=== PATIENT | female | born 1955 | race Caucasian/White ===

== ENCOUNTER 2017-11-22 15:09 | Emergency (ER) | payer MEDICARE, MEDICAID, SELFPAY ==
[2017-11-22 15:19] VITALS: BP 150/83; PULSE 91; RESP 24; TEMP 36.8; O2SAT 86; BMI 22.8
[2017-11-22 15:30] VITALS: PULSE 82
--- NOTE | 2017-11-22 15:44 | XR_ITS ---
XR chest 2V Ordering Physician: Juli Myers MD Patient Age: 62 years: Female HISTORY: ITS.REASON: cough , Congestion TECHNIQUE: PA and lateral chest COMPARISON :2 view chest from November 2016.. AP chest November [address] chest June 2017 . FINDINGS Again see the linear scarring at the right midlung. Similar to previous study Just peripheral to this area we focal pleural thickening. Associated with Old rib fractures. On previous CT and plain films are noted healing rib fractures at the fifth and sixth and seventh ribs. However on today's study there seems to be some additional offset and mild distraction most evident at the sixth rib fracture. This may warrant a follow-up CT particular if the patient has a history of cancer chronic changes RML and lower lobe. Cannot exclude acute infiltrate. Available history unclear in this currently. I favor the changes at the right chest reflect scarring and chronic changes but difficult to exclude a minimal associated infiltrate. Here at the right midlung extending anterior from the right torres The generous left torres is again noted and appears fairly stable. A generous left> right pulmonary artery is been previously noted on prior CT 2017. No pneumothorax no pleural effusion. Heart upper normal in size borderline cardiomegaly. Calcified aortic knob. Superior mediastinum appears satisfactory and stable. IMPRESSION: 1. Most likely chronic changes account for the appearance right midlung. Previous CXR and CT studies are shown significant linear scarring lateral to the right torres & about right perihilar region. However it is difficult to exclude a subtle infiltrate extending anterior to the right torres on today's lateral view.. 2. The patient had healing rib fractures at right fifth and sixth rib which previously appeared rather congruent on plain film. However today there appears to be more evident offset, distraction and disruption with additional slight additional pleural-based density beneath this area.. Requires correlation. Is there pain here?.... 3.. Consider follow-up CT chest, particularly if recurrent chest symptoms in this region; and if prior history of lung cancer (as suggested on one of the previous CT studies.)
[2017-11-22 15:55] LABS: Basophils # 0.1 K/mm3 (0-0.2); Basophils % 0.9 % (0.1-2.0); Eosinophils # 0.3 K/mm3 (0.0-0.4); Eosinophils % 4.9 % (0.1-12.0); Hematocrit 42.4 % (37.0-47.0); Hemoglobin 14.1 g/dL (12.2-16.2); Lymphocytes # 2.3 K/mm3 (0.7-4.5); Lymphocytes % 34.9 K/mm3 (10-50); Mean Corpuscular HGB Conc 33.2 g/dL (31.8-35.4); Mean Corpuscular Hemoglobin 32.5 pg (27.0-31.2); Mean Corpuscular Volume 98.1 fl (81-99); Mean Platelet Volume 8.4 fl (7.4-10.4); Monocytes # 0.7 K/mm3 (0.1-1.0); Monocytes % 10.1 % (1.7-9.3); Neutrophils # 3.3 K/mm3 (1.8-7.8); Neutrophils % 49.3 % (37.0-80.0); Platelet Count 181 K/mm3 (142-424); Red Blood Count 4.32 M/mm3 (4.20-5.40); Red Cell Distribution Width 12.7 % (11.5-17.5); White Blood Count 6.6 K/mm3 (4.8-10.8)
--- NOTE | 2017-11-22 15:57 | [facility].EDSOB ---
ED Disposition Clinical Impression: COPD (chronic obstructive pulmonary disease), Tobacco use disorder, Atelectasis of right lung, Left against medical advice Disposition: Home, Self-Care Condition on Discharge: Fair Prescriptions: Benzonatate [Tessalon Perle 100mg Cap] 100 mg PO Q4HP PRN #30 cap PRN Reason: Cough levoFLOXacin [Levaquin 250mg tab] 250 mg PO DAILY #10 tab methylPREDNISolone [Medrol] 4 mg PO DIRECTED #1 tab.ds.pk Referrals: Bridger Aguilar MD [Primary Care Provider] - - Critical Care Critical Care Time: No Attestation: On 11/22/17, the high probability of a clinically significant, sudden or life threatening deterioration of the following system(s) required my full and direct attention, intervention and personal management. The time I documented below is in addition to time spent performing reported procedures but includes the following listed in this critical care notation. Medical Decision Making Vital Signs: 11/22/17 15:19 11/22/17 15:30 11/22/17 16:19 Temperature 98.2 F Temperature Source Oral Pulse Rate 82 65 Pulse Rate [Left Brachial] 91 H Respiratory Rate 24 Blood Pressure [Left Arm] 150/83 Blood Pressure Mean [Left Arm] 105 Blood Pressure Source [Left Arm] Automatic Cuff Blood Pressure Position [Left Arm] Sitting 02 Sat by Pulse Oximetry 86 L Oxygen Delivery Method Room Air - Lab Data Lab Results 11/22/17 15:30: WBC 6.6, RBC 4.32, Hgb 14.1, Hct 42.4, MCV 98.1, MCH 32.5 H, MCHC 33.2, RDW 12.7, Plt Count 181, MPV 8.4, Neut % (Auto) 49.3, Lymph % (Auto) 34.9, Rich % (Auto) 10.1 H, Eos % (Auto) 4.9, Baso % (Auto) 0.9, Neut # (Auto) 3.3, Lymph # (Auto) 2.3, Rich # (Auto) 0.7, Eos # (Auto) 0.3, Baso # (Auto) 0.1 11/22/17 15:30: Sodium 137, Potassium 3.6, Chloride 100, Carbon Dioxide 32, Anion Gap 8.6, BUN 9, Creatinine 0.56, Estimated Creat Clear 96, Estimated GFR 110, Est GFR ( Amer) 134, Glucose 99, Calcium 8.4 L, Total Bilirubin 0.2, AST 19, ALT 29, Alkaline Phosphatase 131 H, Total Protein 7.0, Albumin 3.3 L, Globulin 3.7 H, Albumin/Globulin Ratio 0.9 L 11/22/17 15:30: Lactic Acid 0.8 Result diagrams: 11/22/17 15:30 11/22/17 15:30 Orders (Tests/Meds): ED MEDICATIONS Generic Name Dose Route Start Last Admin Trade Name Freq PRN Reason Stop Dose Admin Albuterol/Ipratropium 3 ml 11/22/17 16:00 11/22/17 16:16 Duoneb 3ml Neb 12/22/17 15:59 3 ml Q1H MILI Administration Levofloxacin/Dextrose 500 mg in 100 mls @ 100 mls/hr 11/22/17 16:00 11/22/17 16:06 Levaquin 500mg/100ml Premix IV 12/06/17 15:59 100 mls/hr Q24H MILI Administration Protocol Discontinued Medications Generic Name Dose Route Start Last Admin Trade Name Freq PRN Reason Stop Dose Admin Albuterol/Ipratropium 3 ml 11/22/17 15:27 11/22/17 16:16 Duoneb 3ml Neb 11/22/17 15:28 3 ml ONCE ONE Administration Methylprednisolone Sodium Succinate 125 mg 11/22/17 15:50 11/22/17 16:06 Solu-Medrol 125mg/2ml Vial IV 11/22/17 15:51 125 mg ONCE ONE Administration ORDERS Category Date Time Status Chest XR 2 view (NOT portable) [XR chest 2V] Stat Exams 11/22/17 15:44 Taken Blood Culture Stat Micro 11/22/17 15:30 Ordered - Radiology Data #1 Image(s): Chest Image Reviewed: Yes I reviewed the patient's radiology image, Yes I have reviewed radiologist's interpretation Preliminary Findings: Abnormal Chronic changes in the right middle and right lower lobe, acute infiltrates cannot be excluded. - Neftali Inquiry Pt receiving controlled substance: No Neftali was queried for this patient: No Medical Decision Making Narrative: The patient felt improvement after steroids and DuoNeb, her chest x-ray was essentially unchanged from December 2016, labs were within normal limits. Upon reexamination she was still wheezing and I advised her for admission but she declined. She is aware of the risk of worsening of breathing respi
[2017-11-22 15:58] LABS: Alanine Aminotransferase 29 U/L (12-78); Albumin Level 3.3 gm/dL (3.4-5.0); Albumin/Globulin Ratio 0.9 (1.1-1.8); Alkaline Phosphatase 131 U/L (46-116); Anion Gap 8.6 mEq/L (5-15); Aspartate Amino Transferase 19 U/L (15-37); Bilirubin,Total 0.2 mg/dL (0.2-1.0); Blood Urea Nitrogen 9 mg/dL (7-18); Calcium 8.4 mg/dL (8.5-10.1); Carbon Dioxide 32 mmol/L (21.0-32.0); Chloride 100 mmol/L (98-107); Creatinine Clearance Estimated 96 mL/min (0-300); Creatinine,Serum 0.56 mg/dL (0.55-1.02); Estimated Glomerular Filt Rate 110 ml/min (>60); GFR (African American) 134 ML/MIN (>60); Globulin 3.7 gm/dl (1.3-3.2); Glucose 99 mg/dL (74-106); Potassium 3.6 mmoL/L (3.5-5.1); Sodium 137 mmol/L (136-145)
--- NOTE | 2017-11-22 16:00 | ED_ITS ---
ED Disposition Clinical Impression: COPD (chronic obstructive pulmonary disease), Tobacco use disorder, Atelectasis of right lung, Left against medical advice Disposition: Home, Self-Care Condition on Discharge: Fair Prescriptions: Benzonatate [Tessalon Perle 100mg Cap] 100 mg PO Q4HP PRN #30 cap PRN Reason: Cough levoFLOXacin [Levaquin 250mg tab] 250 mg PO DAILY #10 tab methylPREDNISolone [Medrol] 4 mg PO DIRECTED #1 tab.ds.pk Referrals: Bridger Aguilar MD [Primary Care Provider] - - Critical Care Critical Care Time: No Attestation: On 11/22/17, the high probability of a clinically significant, sudden or life threatening deterioration of the following system(s) required my full and direct attention, intervention and personal management. The time I documented below is in addition to time spent performing reported procedures but includes the following listed in this critical care notation. Medical Decision Making Vital Signs: 11/22/17 15:19 11/22/17 15:30 11/22/17 16:19 Temperature 98.2 F Temperature Source Oral Pulse Rate 82 65 Pulse Rate [Left Brachial] 91 H Respiratory Rate 24 Blood Pressure [Left Arm] 150/83 Blood Pressure Mean [Left Arm] 105 Blood Pressure Source [Left Arm] Automatic Cuff Blood Pressure Position [Left Arm] Sitting 02 Sat by Pulse Oximetry 86 L Oxygen Delivery Method Room Air - Lab Data Lab Results 11/22/17 15:30: WBC 6.6, RBC 4.32, Hgb 14.1, Hct 42.4, MCV 98.1, MCH 32.5 H, MCHC 33.2, RDW 12.7, Plt Count 181, MPV 8.4, Neut % (Auto) 49.3, Lymph % (Auto) 34.9, [place] % (Auto) 10.1 H, Eos % (Auto) 4.9, Baso % (Auto) 0.9, Neut # (Auto) 3.3, Lymph # (Auto) 2.3, [place] # (Auto) 0.7, Eos # (Auto) 0.3, Baso # (Auto) 0.1 11/22/17 15:30: Sodium 137, Potassium 3.6, Chloride 100, Carbon Dioxide 32, Anion Gap 8.6, BUN 9, Creatinine 0.56, Estimated Creat Clear 96, Estimated GFR 110, Est GFR ( Amer) 134, Glucose 99, Calcium 8.4 L, Total Bilirubin 0.2 , AST 19, ALT 29, Alkaline Phosphatase 131 H, Total Protein 7.0, Albumin 3.3 L, Globulin 3.7 H, Albumin/Globulin Ratio 0.9 L 11/22/17 15:30: Lactic Acid 0.8 Result diagrams: 11/22/17 15:30 11/22/17 15:30 Orders (Tests/Meds): ED MEDICATIONS Generic Name Dose Route Start Last Admin Trade Name Freq PRN Reason Stop Dose Admin Albuterol/Ipratropium 3 ml 11/22/17 16:00 11/22/17 16:16 Duoneb 3ml Neb IH 12/22/17 15:59 3 ml Q1H MILI Administration Levofloxacin/Dextrose 500 mg in 100 mls @ 100 mls/hr 11/22/17 16:00 11/22/17 16:06 Levaquin 500mg/100ml Premix IV 12/06/17 15:59 100 mls/hr Q24H MILI Administration Protocol Discontinued Medications Generic Name Dose Route Start Last Admin Trade Name Freq PRN Reason Stop Dose Admin Albuterol/Ipratropium 3 ml 11/22/17 15:27 11/22/17 16:16 Duoneb 3ml Neb IH 11/22/17 15:28 3 ml ONCE ONE Administration Methylprednisolone Sodium Succinate 125 mg 11/22/17 15:50 11/22/17 16:06 Solu-Medrol 125mg/2ml Vial IV 11/22/17 15:51 125 mg ONCE ONE Administration ORDERS Category Date Time Status Chest XR 2 view (NOT portable) [XR chest 2V] Stat Exams 11/22/17 15:44 Taken Blood Culture Stat Micro 11/22/17 15:30 Ordered - Radiology Data #1 Image(s):
[2017-11-22 16:12] LABS: Lactic Acid 0.8 mmol/L (0.4-2.0)
[2017-11-22 16:19] VITALS: PULSE 64; PULSE 65
[2017-11-22 17:15] VITALS: BP 150/83; PULSE 91; RESP 20; TEMP 36.8
== END 2017-11-22 17:18 | disposition home or self-care (01) ==
PROVIDERS: Emergency Provider Emergency Medicine; PCP Emergency Medicine
DX: J44.9 Chronic obstructive pulmonary disease, unspecified (principal); J98.11 Atelectasis; F17.210 Nicotine dependence, cigarettes, uncomplicated; Z88.1 Allergy status to other antibiotic agents
CPT/HCPCS: 71046; 80053; 83605; 85025; 87040; 96365; 96374; 99282; J1956

== ENCOUNTER 2018-05-08 22:19 | Observation (INO) ==
[2018-05-08 22:39] LABS: Microscopic, Urine URINE MICROSCOPIC (MICROSCOPIC)
[2018-05-08 22:41] LABS: Appearance,Urine CLEAR (Clear); Bilirubin,Urine Negative (Negative); Blood, Urine TRACE-L (Negative); Color,Urine YELLOW (Yellow); Glucose,Urine (UA) Negative (Negative); Ketones,Urine Negative (Negative); Leukocyte Esterase,Urine Negative (Negative); PH,Urine 6.5 (5.0-8.5); Protein,Urine TRACE (Negative); Urobilinogen,Urine 0.2 EU/dl (0.2)
[2018-05-08 22:42] LABS: ABG Base Excess 1.8 mmol/L (-2.4-2.3); ABG HCO3 28.4 mmhg (22.0-26.0); ABG Oxygen Saturation 92 % (90-100); ABG PH 7.29 mmol/L (7.35-7.45); ABG PO2 66.2 mmhg (80-100); ABG TCO2 30.3 mmhg (23-27)
[2018-05-08 22:43] LABS: ABG PCO2 60.9 mmhg (35.0-45.0)
[2018-05-08 22:49] LABS: Amphetamine/Metha Screen,Urine Negative ng/mL (<1000); Barbiturates Screen,Urine Negative ng/mL (<200); Benzodiazepines Screen,Urine Negative ng/mL (<200); Cannabinoid Screen,Urine Negative ng/mL (<50); Cocaine Screen,Urine Negative ng/mL (<300); Methadone Screen,Urine Negative ng/mL (<300); Opiate Screen,Urine Negative ng/mL (<300); Phencyclidine Screen,Urine Negative ng/mL (<25)
[2018-05-08 23:08] LABS: Basophils # 0.1 K/mm3 (0-0.2); Basophils % 0.9 % (0.1-2.0); Eosinophils # 0.5 K/mm3 (0.0-0.4); Eosinophils % 6.6 % (0.1-12.0); Hematocrit 42.2 % (37.0-47.0); Lymphocytes # 2.4 K/mm3 (0.7-4.5); Lymphocytes % 30.8 K/mm3 (10-50); Mean Corpuscular HGB Conc 35.4 g/dL (31.8-35.4); Mean Corpuscular Hemoglobin 34.8 pg (27.0-31.2); Mean Corpuscular Volume 98.3 fl (81-99); Mean Platelet Volume 7.4 fl (7.4-10.4); Monocytes # 0.6 K/mm3 (0.1-1.0); Monocytes % 7.9 % (1.7-9.3); Neutrophils # 4.2 K/mm3 (1.8-7.8); Neutrophils % 53.9 % (37.0-80.0); Platelet Count 218 K/mm3 (142-424); Red Blood Count 4.29 M/mm3 (4.20-5.40); Red Cell Distribution Width 13.2 % (11.5-17.5); White Blood Count 7.8 K/mm3 (4.8-10.8)
[2018-05-08 23:25] LABS: Albumin Level 3.3 gm/dL (3.4-5.0); Albumin/Globulin Ratio 0.9 (1.1-1.8); Bilirubin,Total 0.3 mg/dL (0.2-1.0); Calcium 8.7 mg/dL (8.5-10.1); Globulin 3.6 gm/dl (1.3-3.2); Total Protein,Serum 6.9 gm/dL (6.4-8.2)
[2018-05-08 23:42] LABS: Bacteria,Urine Trace /lpf
--- NOTE | 2018-05-08 23:53 | Emergency Department Note ---
ED Disposition Clinical Impression: Altered mental status Qualifiers: Altered mental status type: unspecified Qualified Code(s): R41.82 - Altered mental status, unspecified Disposition: Admitted as Observation Condition on Discharge: Good Instructions: DI for Seizure Disorder -- Adult, DI for Seizure (Not Epilepsy/ Seizure Disorder), DI for Seizure Disorder -- Child Referrals: Bridger Aguilar MD [Primary Care Provider] - - Critical Care Critical Care Time: No Attestation: On 05/08/18, the high probability of a clinically significant, sudden or life threatening deterioration of the following system(s) required my full and direct attention, intervention and personal management. The time I documented below is in addition to time spent performing reported procedures but includes the following listed in this critical care notation. Medical Decision Making - Medical Records Medical records reviewed: Yes: I reviewed the patient's medical records. - Neftali Inquiry Pt receiving controlled substance: No Vital Signs: 05/08/18 22:21 05/08/18 23:57 Temperature 99.8 F H 98.6 F Temperature Source Rectal Oral Pulse Rate [Right Radial] 108 H 103 H Respiratory Rate 14 16 Blood Pressure [Right Arm] 161/85 164/88 Blood Pressure Mean [Right Arm] 110 113 Blood Pressure Source [Right Arm] Automatic Cuff Manual Cuff/ Auscultation Blood Pressure Position [Right Arm] Sitting Sitting 02 Sat by Pulse Oximetry 88 L 94 L Oxygen Delivery Method Room Air Nasal Cannula Oxygen Flow Rate (LPM) 2 - Lab Data Lab results reviewed: Yes: I reviewed the patient's lab results. Lab Results 05/08/18 20:45: WBC 7.8, RBC 4.29, Hgb 15.0, Hct 42.2, MCV 98.3, MCH 34.8 H, MCHC 35.4, RDW 13.2, Plt Count 218, MPV 7.4, Neut % (Auto) 53.9, Lymph % (Auto) 30.8, [place] % (Auto) 7.9, Eos % (Auto) 6.6, Baso % (Auto) 0.9, Neut # (Auto) 4.2 , Lymph # (Auto) 2.4, [place] # (Auto) 0.6, Eos # (Auto) 0.5 H, Baso # (Auto) 0.1 05/08/18 20:45: Sodium 138, Potassium 4.0, Chloride 100, Carbon Dioxide 31, Anion Gap 11.0, BUN 7, Creatinine 0.87, Estimated Creat Clear 64, Estimated GFR 66, Est GFR ( Amer) 80, Glucose 82, Calcium 8.7, Total Bilirubin 0.3, AST 17, ALT 21, Alkaline Phosphatase 140 H, Total Protein 6.9, Albumin 3.3 L, Globulin 3.6 H, Albumin/Globulin Ratio 0.9 L 05/08/18 20:45: Lactate 2.9 H 05/08/18 20:45: Troponin I < 0.02 05/08/18 22:35: Urine Color Yellow, Urine Appearance Clear, Urine pH 6.5, Ur Specific [place] 1.020, Urine Protein Trace, Urine Glucose (UA) Negative, Urine Ketones Negative, Urine Blood Trace-l, Urine Nitrate Negative, Urine Bilirubin Negative, Urine Urobilinogen 0.2, Ur Leukocyte Esterase Negative, Urine RBC None , Urine WBC 3-5, Ur Squamous Epith Cells None, Urine Bacteria Trace 05/08/18 22:35: Urine Opiates Screen Negative, Urine Methadone Screen Negative, Ur Barbituates Screen Negative, Ur Phencyclidine Scrn Negative, Ur Amphetamines Screen Negative, U Benzodiazepines Scrn Negative, Urine Cocaine Screen Negative , U Marijuana (THC) Screen Negative 05/08/18 22:41: ABG pH 7.29 L, ABG pCO2 60.9 H, ABG pO2 66.2 L, ABG HCO3 28.4 H , ABG Total CO2 30.3 H, ABG O2 Saturation 92, ABG Base Excess 1.8 Result diagrams: 05/08/18 20:45 05/08/18 20:45 Orders (Tests/Meds): ED MEDICATIONS Generic Name Dose Route Start Last Admin Trade Name Freq PRN Reason Stop Dose Admin Sodium Chloride 2 ml 05/09/18 00:04 Saline Flush 10ml Syringe IV 06/08/18 00:03 NEEDED PRN to Dilute Lorazepam inj Discontinued Medications Generic Name Dose Route Start Last Admin Trade Name Freq PRN Reason Stop Dose Admin Sodium Chloride 1,000 mls @ 999 mls/hr 05/08/18 23:00 05/08/18 23:31 Sod Chlor 0.9% 1000ml Bag IV 05/09/18 00:00 999 mls/hr .Q1H1M MILI Administration Lorazepam 0.5 mg 05/09/18 00:04 05/09/18 00:09 Ativan 2mg/Ml Vial IV 05/09/18 00:05 0.5 mg ONCE ONE Administration ORDERS Category Date Time Status CT head/brain wo con Stat Cat Scan 05/08/18 22:30 Taken XR chest AP Stat Exams 05/08/18 23:03 Taken Ethanol [Ethyl Alcohol] Stat Lab 05/08/18 23:54 Received Blood Culture Stat Micro 05/08/18 20:45 Received Arterial Blood Gas Stat RT 05/08/18 22:30 Ordered EKG Request [ECG Request by /Kira] Stat Y 05/08/18 23:25 Ordered - Radiology Data #1 Image(s): Chest Image Reviewed: Yes I reviewed the patient's radiology image Preliminary Findings: Abnormal (chronic rt sided changes ) - CT Data CT Scan: Head Time Received: 00:[address] Reviewed: Yes: I have viewed the radiologist's interpretation Preliminary Findings: Normal/NAD - ECG Data Tracing #1 I reviewed this ECG and interpreted as documented below: Arrhythmias present: sinus tach Ischemic changes: non-specific ST-T wave changes Seizures HPI - General Chief Complaint: Seizure Stated Complaint: seizure Time Seen by Provider: 05/08/18 22:30 Mode of Arrival: EMS Source of Information: Patient, Relative, EMS, Medical Record Limitations: Physical Limitations Description of Symptoms (Recalled from ER Triage Doc. by RN): EMS was called by who reports a seizure. Upon arrival they state the patient was in bed with noted incontinence of urine, tachycardia, pupils dialated and lethargic. - History of Present Illness HPI Narrative: family reports episode of stiffing up an incont but not apnea and no known hx of sz - pt denied and subst abuse but did start suboxone today MD complaint: possible seizure Onset (ago): hour(s) Description of Episode: tonic-clonic movement, bladder incontinence, post-event confusion -: minutes(s) Witnessed: yes - by bystander Trauma: No Seizure History: none Place: home Possible Precipitating Event: drug use Associated symptoms: denies other symptoms Treatments prior to arrival: none - Related Data Home Medications Medication Instructions Recorded Confirmed Atorvastatin Calcium [Atorvastatin 40 mg PO HS 05/08/18 05/08/18 40mg Tab] Benzonatate [Benzonatate 100mg 100 mg PO NEEDED PRN 05/08/18 05/08/18 cap] Buprenorphine HCl/Naloxone HCl 1 each SL DAILY 05/08/18 05/08/18 [Buprenorphin-Naloxon 8-2 mg Sl] Omeprazole [Omeprazole 20mg 40 mg PO DAILY 05/08/18 05/08/18 Capsule] Potassium Chloride [Klor-con 20 20 meq PO DAILY 05/08/18 05/08/18 mEq tablet] Allergies Allergy/AdvReac Type Severity Reaction Status Date / Time No Known Allergies Allergy Verified 05/08/18 22:30 [facility] History I have reviewed the patient's past medical history: Yes Medical History: Reports:: Cancer, Chronic Obstructive Pulmonary Disease (COPD) , Cerebrovascular Accident, Gastroesophageal Reflux Disease(GERD), Hyperlipidemia, Seizures Denies:: Diabetes Mellitus Type 1, Diabetes Mellitus Type 2 Other Medical History: Reports: Anemia Laterality Cases: Bilateral: Other Other Surgeries: Yes: Hysterectomy-Total Amputation: No Fractures: No Comment: carotid sx - Social History Smoking Status: Current every day smoker Tobacco Type: cigarettes # Packs/Day (cigarettes): 1 Alcohol Intake: never Alcohol Intake Frequency:: other Substance Use Type: former substance user Occupational Status: unemployed - Psychiatric History Expresses thoughts of harming self/others: None Suicide Plan Description: No Plan Family Hx:: Cancer ROS Obtained: Yes All systems reviewed & no additional complaints - Constitutional Constitutional: Denies fever(s) - Eyes Eyes: Denies eye discharge - ENT Ears, Nose, Mouth, and Throat: Denies sore throat - Cardiovascular Cardiovascular: Denies chest pain - Respiratory Respiratory: No cough - Gastrointestinal Gastrointestingal: Denies: abdominal pain - Genitourinary Female Genitourinary: Denies hematuria - Musculoskeletal Musculoskeletal: Denies joint pain, Denies joint swelling - Integumentary/Breasts Skin/Breast: Denies rash - Neurologic Neurologic: Denies headache(s), Reports seizure-like activity Physical Exam - General General appearance: in no apparent distress - Head Head exam: normocephalic - Eye Eye exam: Present: PERRL, EOMI. Absent: scleral icterus, nystagmus - ENT ENT exam: Present: normal oropharynx, mucous membranes dry, other (no evid of tongue biting ) - Neck Neck exam: Present: trachea midline - Chest Chest inspection: Present: normal inspection - Respiratory Respiratory exam: Present: normal lung sounds bilaterally. Absent: respiratory distress - Cardiovascular Cardiovascular exam: Present: regular rate, systolic murmur, +S4 - Abdominal Exam Abdominal exam: Present: soft - Extremities Exam Extremities exam: Absent: calf tenderness - Neurological Exam Neurological exam: Present: alert, oriented X3, CN II-XII intact, other (does have occ jerking of upper ext ) - Skin Skin exam: Absent: rash
[2018-05-09 07:41] LABS: Basophils # 0.1 K/mm3 (0-0.2); Eosinophils # 0.2 K/mm3 (0.0-0.4); Eosinophils % 3.6 % (0.1-12.0); Hematocrit 42.8 % (37.0-47.0); Lymphocytes # 2.1 K/mm3 (0.7-4.5); Lymphocytes % 32.9 K/mm3 (10-50); Mean Corpuscular HGB Conc 32.6 g/dL (31.8-35.4); Mean Corpuscular Hemoglobin 32.3 pg (27.0-31.2); Mean Platelet Volume 7.6 fl (7.4-10.4); Monocytes # 0.6 K/mm3 (0.1-1.0); Monocytes % 8.6 % (1.7-9.3); Neutrophils # 3.5 K/mm3 (1.8-7.8); Neutrophils % 53.9 % (37.0-80.0); Platelet Count 219 K/mm3 (142-424); Red Blood Count 4.32 M/mm3 (4.20-5.40); Red Cell Distribution Width 13.2 % (11.5-17.5); White Blood Count 6.4 K/mm3 (4.8-10.8)
[2018-05-09 07:42] LABS: Anion Gap 7.9 mEq/L (5-15); Potassium 3.9 mmoL/L (3.5-5.1)
[2018-05-09 07:43] VITALS: BP 127/58
--- NOTE | 2018-05-09 08:20 | Pharmacy Consult Notes ---
[facility] Pharmacy VTE Monitoring - Patient Demographics Admission date: 05/08/18 Report Date: 05/09/18 Time: 08:20 Allergies/Adverse Reactions: Patient Allergies No Known Allergies Allergy (Verified 05/09/18 06:41) Height: 1.57 m Weight: 50.1 kg Patient Problems: Current Active Problems Altered mental status (Acute) - VTE Risk Labs: VTE Related Lab Results Hgb 14.0 g/dL (12.2-16.2) 05/09/18 07:25 Hct 42.8 % (37.0-47.0) 05/09/18 07:25 Plt Count 219 K/mm3 (142-424) 05/09/18 07:25 BUN 5 mg/dL (7-18) L D 05/09/18 07:25 Creatinine 0.68 mg/dL (0.55-1.02) D 05/09/18 07:25 Estimated Creat Clear 70 mL/min (0-300) 05/09/18 07:25 Was VTE Risk Assessment Performed: Yes VTE Score: 2 VTE Risk Level: Low Risk - Prophylaxis VTE Prophylaxis Ordered?: Yes Types of VTE Prophylaxis: TEDS Knee High Location of Applied Device: Bilateral Lower Extremeties - VTE Diagnosis Confirmed Treatment or plan recommended: Continue Current Treatment
--- NOTE | 2018-05-09 09:48 | H&P/Discharge Summary ---
General - General Admission date:: 05/09/18 Discharge date: 05/09/18 *Admission Date: 05/08/18 *Chief complaint: sob *History of present illness: this wf presented to ed last pm with possible sz - as she had jerking and change in mental status - she has been she reports on suboxone for a year and by my count had taken an extra tab but pt denied and she did report taking neurotin no rx to her - i reviewed her sundeep report -she has no known sz but does smoke and has chronic o2 dep copd - has inhalers and nebulizer at home [facility] History I have reviewed the patient's past medical history: Yes Medical History: Reports:: Cancer (Lung CA), Chronic Obstructive Pulmonary Disease (COPD), Cerebrovascular Accident, Gastroesophageal Reflux Disease(GERD) , Hyperlipidemia, Seizures Denies:: Diabetes Mellitus Type 1, Diabetes Mellitus Type 2, MRSA Other Medical History: Reports: Anemia Laterality Cases: Bilateral: Other Other Surgeries: Yes: Hysterectomy-Total, Other (Removal of tumor in lung) Amputation: No Fractures: No - *Social History Educational Level: Completed High School Smoking Status: Current every day smoker Tobacco Type: cigarettes # Packs/Day (cigarettes): 1 #Yrs smoked (if former smoker): 45 Alcohol Intake: never Alcohol Intake Frequency:: other Substance Use Type: former substance user Occupational Status: unemployed Housing: house Household Members: spouse, family - Psychiatric History Expresses thoughts of harming self/others: None Suicide Plan Description: No Plan *Family Hx:: Cancer Review of Systems - Review of Systems Review of systems:: pertinent systems reviewed and negative unless documented below - Constitutional Denies headache(s) - Eyes Denies change in vision - ENT Denies headache(s) - *Cardiovascular Denies chest pain - *Respiratory Reports cough, Reports shortness of breath, Denies coughing up blood - *Gastrointestinal Denies abdominal pain - *Genitourinary Denies blood in urine - *Musculoskeletal Reports joint pain, Reports other (has chronic rt hip pain ), Denies joint swelling - Integumentary/Breasts Denies rash - *Neurologic Reports seizure-like activity, Denies headache(s) - Psychiatric Reports anxiety Exam Vital signs and Labs for Last 24 Hours: Temp Pulse Resp BP Pulse Ox 98.0 F 83 20 127/58 94 L 05/09/18 07:41 05/09/18 07:41 05/09/18 07:41 05/09/18 07:41 05/09/18 07:56 Laboratory Results - last 24 hr 05/08/18 20:45: WBC 7.8, RBC 4.29, Hgb 15.0, Hct 42.2, MCV 98.3, MCH 34.8 H, MCHC 35.4, RDW 13.2, Plt Count 218, MPV 7.4, Neut % (Auto) 53.9, Lymph % (Auto) 30.8, [place] % (Auto) 7.9, Eos % (Auto) 6.6, Baso % (Auto) 0.9, Neut # (Auto) 4.2 , Lymph # (Auto) 2.4, [place] # (Auto) 0.6, Eos # (Auto) 0.5 H, Baso # (Auto) 0.1 05/08/18 20:45: Sodium 138, Potassium 4.0, Chloride 100, Carbon Dioxide 31, Anion Gap 11.0, BUN 7, Creatinine 0.87, Estimated Creat Clear 64, Estimated GFR 66, Est GFR ( Amer) 80, Glucose 82, Calcium 8.7, Total Bilirubin 0.3, AST 17, ALT 21, Alkaline Phosphatase 140 H, Total Protein 6.9, Albumin 3.3 L, Globulin 3.6 H, Albumin/Globulin Ratio 0.9 L 05/08/18 20:45: Lactate 2.9 H 05/08/18 20:45: Troponin I < 0.02 05/08/18 22:35: Urine Color Yellow, Urine Appearance Clear, Urine pH 6.5, Ur Specific [place] 1.020, Urine Protein Trace, Urine Glucose (UA) Negative, Urine Ketones Negative, Urine Blood Trace-l, Urine Nitrate Negative, Urine Bilirubin Negative, Urine Urobilinogen 0.2, Ur Leukocyte Esterase Negative, Urine RBC None , Urine WBC 3-5, Ur Squamous Epith Cells None, Urine Bacteria Trace 05/08/18 22:35: Urine Opiates Screen Negative, Urine Methadone Screen Negative, Ur Barbituates Screen Negative, Ur Phencyclidine Scrn Negative, Ur Amphetamines Screen Negative, U Benzodiazepines Scrn Negative, Urine Cocaine Screen Negative , U Marijuana (THC) Screen Negative 05/08/18 22:41: ABG pH 7.29 L, ABG pCO2 60.9 H, ABG pO2 66.2 L, ABG HCO3 28.4 H , ABG Total CO2 30.3 H, ABG O2 Saturation 92, ABG Base Excess 1.8 05/09/18 00:00: Plasma/Serum Alcohol 0 05/09/18 01:17: Lactate 0.4 05/09/18 07:25: WBC 6.4, RBC 4.32, Hgb 14.0, Hct 42.8, MCV 99.0, MCH 32.3 H, MCHC 32.6, RDW 13.2, Plt Count 219, MPV 7.6, Neut % (Auto) 53.9, Lymph % (Auto) 32.9, [place] % (Auto) 8.6, Eos % (Auto) 3.6, Baso % (Auto) 1.0, Neut # (Auto) 3.5 , Lymph # (Auto) 2.1, [place] # (Auto) 0.6, Eos # (Auto) 0.2, Baso # (Auto) 0.1 05/09/18 07:25: Sodium 144, Potassium 3.9, Chloride 107, Carbon Dioxide 33 H, Anion Gap 7.9, BUN 5 L D, Creatinine 0.68 D, Estimated Creat Clear 70, Estimated GFR 88, Est GFR ( Amer) 107 D, Glucose 88, Calcium 8.0 L, Magnesium 1.7 I & O for Last 24 hours: Intake & Output 05/06/18 05/07/18 05/08/18 05/09/18 11:59 11:59 11:59 11:59 Intake Total 887 / 887 Output Total 1700 / 1700 Balance -813 / -813 Weight 110 lb 7.225 oz - Constitutional no acute distress, thin - *Routine HEENT Exam Head: Present: normocephalic Eye: Present: EOMI, PERRL ENT: Present: mucous membranes dry - *Routine Neck Exam Present: supple. Absent: carotid bruit - *Routine Respiratory Exam Present: rhonchi. Absent: respiratory distress - *Routine Cardiovascular Exam Present: RRR, murmur - *Routine Abdominal Exam Present: soft - *Routine Extremities Exam Absent: calf tenderness - *Routine Skin Exam Present: intact - *Routine Neurological Exam Present: alert, oriented X3, CN II-XII intact no jerking this am - Routine Psychiatric Exam Present: normal affect Hospital Course Hospital Course: has did better with more alert and no jerking with chronic cough - she refusing to stay in hospital and wishes to be d/c - we discussed compliance with meds and uds and csa- Results Labs on day of discharge: Labs from last 24 hours 05/09/18 05/09/18 05/09/18 07:25 07:25 01:17 WBC 6.4 RBC 4.32 Hgb 14.0 Hct 42.8 MCV 99.0 MCH 32.3 H MCHC 32.6 RDW 13.2 Plt Count 219 MPV 7.6 Neut % (Auto) 53.9 Lymph % (Auto) 32.9 [place] % (Auto) 8.6 Eos % (Auto) 3.6 Baso % (Auto) 1.0 Neut # (Auto) 3.5 Lymph # (Auto) 2.1 [place] # (Auto) 0.6 Eos # (Auto) 0.2 Baso # (Auto) 0.1 ABG pH ABG pCO2 ABG pO2 ABG HCO3 ABG Total CO2 ABG O2 Saturation ABG Base Excess Sodium 144 Potassium 3.9 Chloride 107 Carbon Dioxide 33 H Anion Gap 7.9 BUN 5 L D Creatinine 0.68 D Estimated Creat Clear 70 Estimated GFR 88 Est GFR ( Amer) 107 D Glucose 88 Lactate 0.4 Calcium 8.0 L Magnesium 1.7 Total Bilirubin AST ALT Alkaline Phosphatase Troponin I Total Protein Albumin Globulin Albumin/Globulin Ratio Urine Color Urine Appearance Urine pH Ur Specific [place] Urine Protein Urine Glucose (UA) Urine Ketones Urine Blood Urine Nitrate Urine Bilirubin Urine Urobilinogen Ur Leukocyte Esterase Urine RBC Urine WBC Ur Squamous Epith Cells Urine Bacteria Urine Opiates Screen Urine Methadone Screen Ur Barbituates Screen Ur Phencyclidine Scrn Ur Amphetamines Screen U Benzodiazepines Scrn Urine Cocaine Screen U Marijuana (THC) Screen Plasma/Serum Alcohol 05/09/18 05/08/18 05/08/18 00:00 22:41 22:35 WBC RBC Hgb Hct MCV MCH MCHC RDW Plt Count MPV Neut % (Auto) Lymph % (Auto) [place] % (Auto) Eos % (Auto) Baso % (Auto) Neut # (Auto) Lymph # (Auto) [place] # (Auto) Eos # (Auto) Baso # (Auto) ABG pH 7.29 L ABG pCO2 60.9 H ABG pO2 66.2 L ABG HCO3 28.4 H ABG Total CO2 30.3 H ABG O2 Saturation 92 ABG Base Excess 1.8 Sodium Potassium Chloride Carbon Dioxide Anion Gap BUN Creatinine Estimated Creat Clear Estimated GFR Est GFR ( Amer) Glucose Lactate Calcium Magnesium Total Bilirubin AST ALT Alkaline Phosphatase Troponin I Total Protein Albumin Globulin Albumin/Globulin Ratio Urine Color Urine Appearance Urine pH Ur Specific [place] Urine Protein Urine Glucose (UA) Urine Ketones Urine Blood Urine Nitrate Urine Bilirubin Urine Urobilinogen Ur Leukocyte Esterase Urine RBC Urine WBC Ur Squamous Epith Cells Urine Bacteria Urine Opiates Screen Negative Urine Methadone Screen Negative Ur Barbituates Screen Negative Ur Phencyclidine Scrn Negative Ur Amphetamines Screen Negative U Benzodiazepines Scrn Negative Urine Cocaine Screen Negative U Marijuana (THC) Screen Negative Plasma/Serum Alcohol 0 05/08/18 05/08/18 05/08/18 22:35 20:45 20:45 WBC RBC Hgb Hct MCV MCH MCHC RDW Plt Count MPV Neut % (Auto) Lymph % (Auto) [place] % (Auto) Eos % (Auto) Baso % (Auto) Neut # (Auto) Lymph # (Auto) [place] # (Auto) Eos # (Auto) Baso # (Auto) ABG pH ABG pCO2 ABG pO2 ABG HCO3 ABG Total CO2 ABG O2 Saturation ABG Base Excess Sodium Potassium Chloride Carbon Dioxide Anion Gap BUN Creatinine Estimated Creat Clear Estimated GFR Est GFR ( Amer) Glucose Lactate 2.9 H Calcium Magnesium Total Bilirubin AST ALT Alkaline Phosphatase Troponin I < 0.02 Total Protein Albumin Globulin Albumin/Globulin Ratio Urine Color Yellow Urine Appearance Clear Urine pH 6.5 Ur Specific [place] 1.020 Urine Protein Trace Urine Glucose (UA) Negative Urine Ketones Negative Urine Blood Trace-l Urine Nitrate Negative Urine Bilirubin Negative Urine Urobilinogen 0.2 Ur Leukocyte Esterase Negative Urine RBC None Urine WBC 3-5 Ur Squamous Epith Cells None Urine Bacteria Trace Urine Opiates Screen Urine Methadone Screen Ur Barbituates Screen Ur Phencyclidine Scrn Ur Amphetamines Screen U Benzodiazepines Scrn Urine Cocaine Screen U Marijuana (THC) Screen Plasma/Serum Alcohol 05/08/18 05/08/18 20:45 20:45 WBC 7.8 RBC 4.29 Hgb 15.0 Hct 42.2 MCV 98.3 MCH 34.8 H MCHC 35.4 RDW 13.2 Plt Count 218 MPV 7.4 Neut % (Auto) 53.9 Lymph % (Auto) 30.8 [place] % (Auto) 7.9 Eos % (Auto) 6.6 Baso % (Auto) 0.9 Neut # (Auto) 4.2 Lymph # (Auto) 2.4 [place] # (Auto) 0.6 Eos # (Auto) 0.5 H Baso # (Auto) 0.1 ABG pH ABG pCO2 ABG pO2 ABG HCO3 ABG Total CO2 ABG O2 Saturation ABG Base Excess Sodium 138 Potassium 4.0 Chloride 100 Carbon Dioxide 31 Anion Gap 11.0 BUN 7 Creatinine 0.87 Estimated Creat Clear 64 Estimated GFR 66 Est GFR ( Amer) 80 Glucose 82 Lactate Calcium 8.7 Magnesium Total Bilirubin 0.3 AST 17 ALT 21 Alkaline Phosphatase 140 H Troponin I Total Protein 6.9 Albumin 3.3 L Globulin 3.6 H Albumin/Globulin Ratio 0.9 L Urine Color Urine Appearance Urine pH Ur Specific [place] Urine Protein Urine Glucose (UA) Urine Ketones Urine Blood Urine Nitrate Urine Bilirubin Urine Urobilinogen Ur Leukocyte Esterase Urine RBC Urine WBC Ur Squamous Epith Cells Urine Bacteria Urine Opiates Screen Urine Methadone Screen Ur Barbituates Screen Ur Phencyclidine Scrn Ur Amphetamines Screen U Benzodiazepines Scrn Urine Cocaine Screen U Marijuana (THC) Screen Plasma/Serum Alcohol DS: Diagnosis - Discharge Diagnosis (1) Chronic pain disorder Status: Acute (2) COPD (chronic obstructive pulmonary disease) Status: Acute (3) Tobacco use disorder Status: Acute (4) Bronchitis Status: Acute Discharge Medications - Medications for Discharge Home Medication List at Discharge: New predniSONE [Prednisone 20mg Tab] 20 mg PO BID #10 tab Azithromycin [Zithromax 250mg tab] 250 mg PO DIRECTED #6 tab Continue Atorvastatin Calcium [Atorvastatin 40mg Tab] 40 mg PO HS Omeprazole [Omeprazole 20mg Capsule] 40 mg PO DAILY Buprenorphine HCl/Naloxone HCl [Buprenorphin-Naloxon 8-2 mg Sl] 1 each SL DAILY Benzonatate [Benzonatate 100mg cap] 100 mg PO TIDP PRN PRN Reason: Cough Potassium Chloride [Klor-con 20 mEq tablet] 20 meq PO DAILY
== END 2018-05-09 10:59 | disposition home or self-care (01) ==
LOC: ER 22:19 → 2ND 22:19
PROVIDERS: ADMIT Emergency Medicine; ATTEND Emergency Medicine

== ENCOUNTER 2018-05-13 04:25 | Inpatient (IN) ==
[2018-05-13 04:44] LABS: ABG Base Excess 1.9 mmol/L (-2.4-2.3); ABG HCO3 27.8 mmhg (22.0-26.0); ABG Oxygen Saturation 91 % (90-100); ABG PH 7.33 mmol/L (7.35-7.45); ABG PO2 58.6 mmhg (80-100); ABG TCO2 29.5 mmhg (23-27)
[2018-05-13 04:46] LABS: Allen's Test Acceptable; Oxygen 36% %
[2018-05-13 04:47] LABS: ABG PCO2 54.4 mmhg (35.0-45.0)
[2018-05-13 04:54] LABS: Basophils # 0.1 K/mm3 (0-0.2); Basophils % 0.6 % (0.1-2.0); Eosinophils # 0.2 K/mm3 (0.0-0.4); Eosinophils % 1.5 % (0.1-12.0); Hematocrit 51.8 % (37.0-47.0); Hemoglobin 16.8 g/dL (12.2-16.2); Lymphocytes # 1.7 K/mm3 (0.7-4.5); Lymphocytes % 15.7 K/mm3 (10-50); Mean Corpuscular HGB Conc 32.5 g/dL (31.8-35.4); Mean Corpuscular Hemoglobin 32.1 pg (27.0-31.2); Mean Corpuscular Volume 98.9 fl (81-99); Mean Platelet Volume 8.1 fl (7.4-10.4); Monocytes # 0.5 K/mm3 (0.1-1.0); Monocytes % 4.5 % (1.7-9.3); Neutrophils # 8.6 K/mm3 (1.8-7.8); Neutrophils % 77.8 % (37.0-80.0); Platelet Count 266 K/mm3 (142-424); Red Blood Count 5.24 M/mm3 (4.20-5.40); White Blood Count 11.1 K/mm3 (4.8-10.8)
[2018-05-13 04:55] LABS: Appearance,Urine CLEAR (Clear); Bilirubin,Urine Negative (Negative); Blood, Urine Negative (Negative); Color,Urine YELLOW (Yellow); Glucose,Urine (UA) Negative (Negative); Ketones,Urine Negative (Negative); Leukocyte Esterase,Urine Negative (Negative); Microscopic, Urine URINE MICROSCOPIC (MICROSCOPIC); PH,Urine 6.5 (5.0-8.5); Protein,Urine Negative (Negative); Urobilinogen,Urine 0.2 EU/dl (0.2)
[2018-05-13 05:02] LABS: Amphetamine/Metha Screen,Urine Negative ng/mL (<1000); Barbiturates Screen,Urine Negative ng/mL (<200); Benzodiazepines Screen,Urine Negative ng/mL (<200); Cannabinoid Screen,Urine Positive ng/mL (<50); Cocaine Screen,Urine Negative ng/mL (<300); Methadone Screen,Urine Negative ng/mL (<300); Opiate Screen,Urine Negative ng/mL (<300); Phencyclidine Screen,Urine Negative ng/mL (<25)
[2018-05-13 05:04] LABS: Alanine Aminotransferase 25 U/L (12-78); Albumin Level 3.4 gm/dL (3.4-5.0); Albumin/Globulin Ratio 0.9 (1.1-1.8); Alkaline Phosphatase 164 U/L (46-116); Aspartate Amino Transferase 16 U/L (15-37); Bilirubin,Total 0.5 mg/dL (0.2-1.0); Blood Urea Nitrogen 10 mg/dL (7-18); Calcium 8.3 mg/dL (8.5-10.1); Carbon Dioxide 30 mmol/L (21.0-32.0); Chloride 105 mmol/L (98-107); Globulin 3.6 gm/dl (1.3-3.2); Glucose 111 mg/dL (74-106); Sodium 140 mmol/L (136-145)
[2018-05-13 05:32] LABS: Ethyl Alcohol 0 mg/dL (0-99)
[2018-05-13 05:34] LABS: Bacteria,Urine Trace /lpf; RBC,Urine Occasional #/hpf (0-3); WBC,Urine Occasional #/hpf (0-3)
--- NOTE | 2018-05-13 06:01 | Emergency Department Note ---
ED Disposition Clinical Impression: HCAP (healthcare-associated pneumonia), Tobacco use, Hypokalemia, Low body mass index (BMI) COPD (chronic obstructive pulmonary disease) Qualifiers: COPD type: COPD with acute exacerbation Qualified Code(s): J44.1 - Chronic obstructive pulmonary disease with (acute) exacerbation Disposition: Admitted as Observation Condition on Discharge: Good Referrals: Bridger Aguilar MD [Primary Care Provider] - - Critical Care Critical Care Time: No Attestation: On 05/13/18, the high probability of a clinically significant, sudden or life threatening deterioration of the following system(s) required my full and direct attention, intervention and personal management. The time I documented below is in addition to time spent performing reported procedures but includes the following listed in this critical care notation. Medical Decision Making - Medical Records Medical records reviewed: Yes: I reviewed the patient's medical records. - Neftali Inquiry Pt receiving controlled substance: No Vital Signs: 05/13/18 04:30 05/13/18 04:38 05/13/18 05:04 Temperature 101.2 F H 104.1 F H 102.6 F H Temperature Source Oral Rectal Rectal Pulse Rate [Left Radial] 110 H 112 H Respiratory Rate 32 H 18 Blood Pressure [Right Arm] 179/78 147/63 Blood Pressure Mean [Right Arm] 111 91 Blood Pressure Source [Right Arm] Automatic Cuff Automatic Cuff Blood Pressure Position [Right Arm] Sitting Sitting 02 Sat by Pulse Oximetry 75 L 92 L Oxygen Delivery Method Room Air Nasal Cannula Oxygen Flow Rate (LPM) 5 05/13/18 05:39 Temperature 101.3 F H Temperature Source Oral Pulse Rate [Left Radial] 111 H Respiratory Rate 18 Blood Pressure [Right Arm] 143/70 Blood Pressure Mean [Right Arm] 94 Blood Pressure Source [Right Arm] Automatic Cuff Blood Pressure Position [Right Arm] Sitting 02 Sat by Pulse Oximetry 96 Oxygen Delivery Method Nasal Cannula Oxygen Flow Rate (LPM) - Lab Data Lab results reviewed: Yes: I reviewed the patient's lab results. Lab Results 05/13/18 04:30: WBC 11.1 H, RBC 5.24, Hgb 16.8 H, Hct 51.8 H, MCV 98.9, MCH 32.1 H, MCHC 32.5, RDW 13.0, Plt Count 266, MPV 8.1, Neut % (Auto) 77.8, Lymph % (Auto) 15.7, [place] % (Auto) 4.5, Eos % (Auto) 1.5, Baso % (Auto) 0.6, Neut # (Auto) 8.6 H, Lymph # (Auto) 1.7, [place] # (Auto) 0.5, Eos # (Auto) 0.2, Baso # (Auto) 0.1 05/13/18 04:30: Sodium 140, Potassium 3.0 L, Chloride 105, Carbon Dioxide 30, Anion Gap 8.0, BUN 10, Creatinine 0.91, Estimated Creat Clear 52, Estimated GFR 63, Est GFR ( Amer) 76, Glucose 111 H, Calcium 8.3 L, Total Bilirubin 0.5, AST 16, ALT 25, Alkaline Phosphatase 164 H, Troponin I < 0.02, Total Protein 7.0, Albumin 3.4, Globulin 3.6 H, Albumin/Globulin Ratio 0.9 L, Plasma/Serum Alcohol 0 05/13/18 04:30: Lactate 1.6 05/13/18 04:30: Urine Opiates Screen Negative, Urine Methadone Screen Negative, Ur Barbituates Screen Negative, Ur Phencyclidine Scrn Negative, Ur Amphetamines Screen Negative, U Benzodiazepines Scrn Negative, Urine Cocaine Screen Negative, U Marijuana (THC) Screen Positive H 05/13/18 04:35: Specimen Source Left radial, O2 % 36%, ABG pH 7.33 L, ABG pCO2 54.4 H, ABG pO2 58.6 L, ABG HCO3 27.8 H, ABG Total CO2 29.5 H, ABG O2 Saturation 91, ABG Base Excess 1.9, Gregg Test Acceptable 05/13/18 04:51: Urine Color Yellow, Urine Appearance Clear, Urine pH 6.5, Ur Specific [place] 1.010, Urine Protein Negative, Urine Glucose (UA) Negative, Urine Ketones Negative, Urine Blood Negative, Urine Nitrate Negative, Urine Bilirubin Negative, Urine Urobilinogen 0.2, Ur Leukocyte Esterase Negative, Urine RBC Occasional, Urine WBC Occasional, Urine Bacteria Trace Result diagrams: 05/13/18 04:30 05/13/18 04:30 Orders (Tests/Meds): ED MEDICATIONS Discontinued Medications Generic Name Dose Route Start Last Admin Trade Name Freq PRN Reason Stop Dose Admin Acetaminophen 650 mg 05/13/18 04:37 05/13/18 04:46 Acetaminophen 650mg Suppository RC 05/13/18 04:38 650 mg ONCE ONE Administration Albuterol/Ipratropium 3 ml 05/13/18 04:38 05/13/18 05:05 Duoneb 3ml Neb IH 05/13/18 04:39 3 ml ONCE ONE Administration Ibuprofen 600 mg 05/13/18 05:39 05/13/18 05:40 Motrin 600mg Tablet PO 05/13/18 05:40 600 mg ONCE ONE Administration Methylprednisolone Sodium Succinate 125 mg 05/13/18 04:39 05/13/18 04:46 Solu-Medrol 125mg/2ml Vial IV 05/13/18 04:40 125 mg ONCE ONE Administration ORDERS Category Date Time Status Chest XR -- portable [XR chest portable] Stat Exams 05/13/18 04:35 Taken UA [Urinalysis and Microscopic] Stat Lab 05/13/18 04:51 Ordered Blood Culture Stat Micro 05/13/18 04:30 Received Arterial Blood Gas Stat RT 05/13/18 04:35 Ordered ECG Request by /Kira Stat Y 05/13/18 04:35 Ordered - Radiology Data #1 Image(s): Chest Image Reviewed: Yes I reviewed the patient's radiology image Preliminary Findings: Abnormal (rt hcap) - ECG Data Tracing #1 I reviewed this ECG and interpreted as documented below: Arrhythmias present: sinus tach Ischemic changes: non-specific ST-T wave changes Resp/SOB HPI - General Chief Complaint: Shortness of Breath/Dyspnea Stated Complaint: sob Time Seen by Provider: 05/13/18 05:00 Mode of Arrival: Family Vehicle Source of Information: Patient, Spouse, Medical Record Limitations: No Limitations Description of Symptoms (Recalled from ER Triage Doc. by RN): to ed per pvt car with c/o sob, SO states she was sitting at kitchen table c/o sob. pt wears 02 06/04. - History of Present Illness pt with hx of copd and has o2 dependent with recent admit for medication misuse presents with fever and cough - she reports not feeling well - no prod sputum - no rash or gi sx Complaint: shortness of breath, cough Onset (ago): day(s) Context: choking/aspiration Severity: moderate Known history of: COPD Associated symptoms: fever Treatment prior to arrival: oxygen - Related Data Home oxygen amount: 2 liters Home Medications Medication Instructions Recorded Confirmed Atorvastatin Calcium [Atorvastatin 40 mg PO HS 05/08/18 05/13/18 40mg Tab] Benzonatate [Benzonatate 100mg 100 mg PO TIDP PRN 05/08/18 05/13/18 cap] Buprenorphine HCl/Naloxone HCl 1 each SL DAILY 05/08/18 05/13/18 [Buprenorphin-Naloxon 8-2 mg Sl] Omeprazole [Omeprazole 20mg 40 mg PO DAILY 05/08/18 05/13/18 Capsule] Potassium Chloride [Klor-con 20 20 meq PO DAILY 05/08/18 05/13/18 mEq tablet] Azithromycin [Zithromax 250mg 250 mg PO DIRECTED 05/13/18 05/13/18 tab] Ipratropium/Albuterol Sulfate 1 puff INHALATION BID 05/13/18 05/13/18 [Combivent Respimat] predniSONE [Prednisone 20mg 20 mg PO BID 05/13/18 05/13/18 Tab] Allergies Allergy/AdvReac Type Severity Reaction Status Date / Time No Known Allergies Allergy Verified 05/09/18 06:41 [facility] History I have reviewed the patient's past medical history: Yes Medical History: Reports:: Cancer (Lung CA), Chronic Obstructive Pulmonary Disease (COPD), Cerebrovascular Accident, Gastroesophageal Reflux Disease(GERD), Hyperlipidemia, Seizures Denies:: Diabetes Mellitus Type 1, Diabetes Mellitus Type 2, MRSA Other Medical History: Reports: Anemia Laterality Cases: Bilateral: Other Other Surgeries: Yes: Hysterectomy-Total, Other (Removal of tumor in lung) Amputation: No Fractures: No Comment: carotid sx - Social History Smoking Status: Current every day smoker Tobacco Type: cigarettes # Packs/Day (cigarettes): 1 #Yrs smoked (if former smoker): 45 Alcohol Intake: never Alcohol Intake Frequency:: other Substance Use Type: former substance user Occupational Status: unemployed Housing: house Household Members: spouse, family - Psychiatric History Expresses thoughts of harming self/others: None Suicide Plan Description: No Plan Family Hx:: Cancer ROS Obtained: Yes All systems reviewed & no additional complaints - Constitutional Constitutional: Reports fever(s) - Eyes Eyes: Denies eye discharge - ENT Ears, Nose, Mouth, and Throat: Denies sore throat - Cardiovascular Cardiovascular: Denies chest pain - Respiratory Respiratory: Yes as per HPI, Yes cough, Yes dyspnea, No coughing up blood - Gastrointestinal Gastrointestingal: Denies: abdominal pain - Genitourinary Female Genitourinary: Denies hematuria - Musculoskeletal Musculoskeletal: Denies joint pain, Denies joint swelling - Integumentary/Breasts Skin/Breast: Denies rash - Neurologic Neurologic: Denies headache(s), Denies seizure-like activity Physical Exam - General General appearance: in no apparent distress, cachectic - Head Head exam: normocephalic - Eye Eye exam: Present: PERRL, EOMI. Absent: scleral icterus - ENT ENT exam: Present: mucous membranes dry - Neck Neck exam: Present: trachea midline. Absent: meningismus - Respiratory Respiratory exam: Present: wheezes, other (rales on rt ) - Cardiovascular Cardiovascular exam: Present: regular rate, systolic murmur, +S4 - Abdominal Exam Abdominal exam: Present: soft - Extremities Exam Extremities exam: Absent: calf tenderness - Neurological Exam Neurological exam: Present: alert, oriented X3, CN II-XII intact - Psychiatric Psychiatric exam: Present: normal affect - Skin Skin exam: Absent: rash
--- NOTE | 2018-05-13 07:37 | Pharmacy Consult Notes ---
[facility] Pharmacy VTE Monitoring - Patient Demographics Admission date: 05/13/18 Report Date: 05/13/18 Time: 07:36 Allergies/Adverse Reactions: Patient Allergies No Known Allergies Allergy (Verified 05/09/18 06:41) Height: 1.57 m Weight: 51.71 kg Patient Problems: Current Active Problems COPD (chronic obstructive pulmonary disease) (Acute) HCAP (healthcare-associated pneumonia) (Acute) Tobacco use (Acute) Hypokalemia (Acute) Low body mass index (BMI) (Acute) - VTE Risk Labs: VTE Related Lab Results Hgb 16.8 g/dL (12.2-16.2) H 05/13/18 04:30 Hct 51.8 % (37.0-47.0) H 05/13/18 04:30 Plt Count 266 K/mm3 (142-424) 05/13/18 04:30 BUN 10 mg/dL (7-18) 05/13/18 04:30 Creatinine 0.91 mg/dL (0.55-1.02) 05/13/18 04:30 Estimated Creat Clear 52 mL/min (0-300) 05/13/18 04:30 Was VTE Risk Assessment Performed: Yes VTE Score: 3 VTE Risk Level: Low Risk - Prophylaxis VTE Prophylaxis Ordered?: Yes Types of VTE Prophylaxis: TEDS Knee High Location of Applied Device: Bilateral Lower Extremeties - VTE Diagnosis Confirmed Treatment or plan recommended: Continue Current Treatment
--- NOTE | 2018-05-13 12:34 | History & Physical Report ---
*Admission Date: 05/13/18 *Chief complaint: sob *History of present illness: 62-year-old female presents to the ER with complaints of shortness of breath, cough, and weakness. Patient was in the hospital a few days ago and chest x-ray was negative and then presented to the ER and showed a right lower lobe pn eumonia. Patient has a history of lung cancer and smokes. Patient admitted for hospital-acquired pneumonia antibiotics Zosyn and vancomycin and speech eval for possible aspiration pneumonia. [facility] History I have reviewed the patient's past medical history: Yes Medical History: Reports:: Cancer, Chronic Obstructive Pulmonary Disease (COPD), Cerebrovascular Accident, Gastroesophageal Reflux Disease(GERD), Hyperlipidemia, Seizures Denies:: Diabetes Mellitus Type 1, Diabetes Mellitus Type 2, MRSA Other Medical History: Reports: Anemia Laterality Cases: Bilateral: Other Other Surgeries: Yes: Hysterectomy-Total, Other (Removal of tumor in lung) Amputation: No Fractures: No - *Social History Educational Level: Completed High School Smoking Status: Current every day smoker Tobacco Type: cigarettes # Packs/Day (cigarettes): 1 #Yrs smoked (if former smoker): 45 Alcohol Intake: never Alcohol Intake Frequency:: other Substance Use Type: former substance user Occupational Status: unemployed Housing: house Household Members: spouse, family - Psychiatric History Expresses thoughts of harming self/others: None Suicide Plan Description: No Plan *Family Hx:: Cancer Review of Systems - Review of Systems Review of systems:: pertinent systems reviewed and negative unless documented below - Constitutional Reports fever(s), Denies body ache(s) - Eyes Denies change in vision - ENT Denies change in voice - *Cardiovascular Reports shortness of breath, Denies generalized swelling - *Respiratory Reports chest congestion, Reports cough, Reports shortness of breath - *Gastrointestinal Denies change in bowel habits - *Genitourinary Denies urinary incontinence - *Musculoskeletal Denies decreased muscle mass - Integumentary/Breasts Denies rash - *Neurologic Denies headache(s), Denies seizure-like activity - Psychiatric Denies anxiety - Endocrine Denies heat intolerance - Hematologic/Lymphatic Denies enlarged lymph nodes - Allergic/Immunologic Denies lip swelling Meds Home Medications Medication Instructions Recorded Confirmed Type Atorvastatin Calcium [Atorvastatin 40 mg PO HS 05/08/18 05/13/18 History 40mg Tab] Benzonatate [Benzonatate 100mg 100 mg PO TIDP PRN 05/08/18 05/13/18 History cap] Buprenorphine HCl/Naloxone HCl 1 each SL DAILY 05/08/18 05/13/18 History [Buprenorphin-Naloxon 8-2 mg Sl] Omeprazole [Omeprazole 20mg 20 mg PO DAILY 05/08/18 05/13/18 History Capsule] Azithromycin [Zithromax 250mg 250 mg PO DIRECTED 05/13/18 05/13/18 History tab] Ipratropium/Albuterol Sulfate 1 puff INHALATION BID 05/13/18 05/13/18 History [Combivent Respimat] predniSONE [Prednisone 20mg 20 mg PO BID 05/13/18 05/13/18 History Tab] Allergies Allergy/AdvReac Type Severity Reaction Status Date / Time No Known Allergies Allergy Verified 05/09/18 06:41 Exam Vital signs and Labs for Last 24 Hours: Temp Pulse Resp BP Pulse Ox 100.6 F H 80 24 108/47 97 05/13/18 07:54 05/13/18 11:06 05/13/18 07:54 05/13/18 07:54 05/13/18 11:06 Laboratory Results - last 24 hr 05/13/18 04:30: WBC 11.1 H, RBC 5.24, Hgb 16.8 H, Hct 51.8 H, MCV 98.9, MCH 32.1 H, MCHC 32.5, RDW 13.0, Plt Count 266, MPV 8.1, Neut % (Auto) 77.8, Lymph % (Auto) 15.7, [place] % (Auto) 4.5, Eos % (Auto) 1.5, Baso % (Auto) 0.6, Neut # (Auto) 8.6 H, Lymph # (Auto) 1.7, [place] # (Auto) 0.5, Eos # (Auto) 0.2, Baso # (Auto) 0.1 05/13/18 04:30: Sodium 140, Potassium 3.0 L, Chloride 105, Carbon Dioxide 30, Anion Gap 8.0, BUN 10, Creatinine 0.91, Estimated Creat Clear 52, Estimated GFR 63, Est GFR ( Amer) 76, Glucose 111 H, Calcium 8.3 L, Total Bilirubin 0.5, AST 16, ALT 25, Alkaline Phosphatase 164 H, Troponin I < 0.02, Total Protein 7.0, Albumin 3.4, Globulin 3.6 H, Albumin/Globulin Ratio 0.9 L, Plasma/Serum Alcohol 0 05/13/18 04:30: Lactate 1.6 05/13/18 04:30: Urine Opiates Screen Negative, Urine Methadone Screen Negative, Ur Barbituates Screen Negative, Ur Phencyclidine Scrn Negative, Ur Amphetamines Screen Negative, U Benzodiazepines Scrn Negative, Urine Cocaine Screen Negative, U Marijuana (THC) Screen Positive H 05/13/18 04:35: Specimen Source Left radial, O2 % 36%, ABG pH 7.33 L, ABG pCO2 54.4 H, ABG pO2 58.6 L, ABG HCO3 27.8 H, ABG Total CO2 29.5 H, ABG O2 Saturation 91, ABG Base Excess 1.9, Gregg Test Acceptable 05/13/18 04:51: Urine Color Yellow, Urine Appearance Clear, Urine pH 6.5, Ur Specific Tyler 1.010, Urine Protein Negative, Urine Glucose (UA) Negative, Urine Ketones Negative, Urine Blood Negative, Urine Nitrate Negative, Urine Bilirubin Negative, Urine Urobilinogen 0.2, Ur Leukocyte Esterase Negative, Urine RBC Occasional, Urine WBC Occasional, Urine Bacteria Trace I & O for Last 24 hours: Intake & Output 05/11/18 05/12/18 05/13/18 05/14/18 11:59 11:59 11:59 11:59 Intake Total 240 / 240 Balance 240 / 240 Weight 114 lb - *Routine HEENT Exam Head: Present: normocephalic Eye: Present: EOMI, PERRL ENT: Present: mucous membranes moist - *Routine Neck Exam Present: supple. Absent: lymphadenopathy - *Routine Respiratory Exam Present: rhonchi, wheezes, diminished air movement - *Routine Cardiovascular Exam Present: RRR - *Routine Abdominal Exam Present: soft, normoactive bowel sounds. Absent: tenderness - *Routine Extremities Exam Absent: cyanosis, clubbing, edema - *Routine Skin Exam Present: warm. Absent: rash - *Routine Neurological Exam Present: alert, oriented X3 Assessment and Plan - Assessment and plan all Dx Assessment and Plan for all problems:: Rounded with Dr. Aguilar all orders per Lauren
--- NOTE | 2018-05-14 08:29 | Pharmacy Consult Notes ---
- Pharmacy Consult Date: 05/14/18 Time: 08:28 Referring provider: DR. ARVIZU Reason for Consult:: VANCOMYCIN DOSING Allergies and ADEs:: Allergies Allergy/AdvReac Type Severity Reaction Status Date / Time No Known Allergies Allergy Verified 05/09/18 06:41 Home Medications:: Home Medications Medication Instructions Recorded Confirmed Type Atorvastatin Calcium [Atorvastatin 40 mg PO HS 05/08/18 05/13/18 History 40mg Tab] Benzonatate [Benzonatate 100mg 100 mg PO TIDP PRN 05/08/18 05/13/18 History cap] Buprenorphine HCl/Naloxone HCl 1 each SL DAILY 05/08/18 05/13/18 History [Buprenorphin-Naloxon 8-2 mg Sl] Omeprazole [Omeprazole 20mg 20 mg PO DAILY 05/08/18 05/13/18 History Capsule] Azithromycin [Zithromax 250mg 250 mg PO DIRECTED 05/13/18 05/13/18 History tab] Ipratropium/Albuterol Sulfate 1 puff INHALATION BID 05/13/18 05/13/18 History [Combivent Respimat] predniSONE [Prednisone 20mg 20 mg PO BID 05/13/18 05/13/18 History Tab] Height: 1.57 m Weight: 51.71 kg Laboratory Results:: SRCR= 0.91 Medical History: Reports:: Cancer, Chronic Obstructive Pulmonary Disease (COPD), Cerebrovascular Accident, Gastroesophageal Reflux Disease(GERD), Hyperlipidemia, Seizures Denies:: Diabetes Mellitus Type 1, Diabetes Mellitus Type 2, MRSA Assessment and Plan - Assessment and plan all Dx Assessment and Plan for all problems:: BASED ON PATIENT FACTORS, RECOMMEND VANCOMYCIN 1 GM IV Q24H. PHARMACY WILL FOLLOW DAILY AND ADJUST APPROPRIATE.
--- NOTE | 2018-05-14 09:04 | Discharge Summary ---
General - General Admission date:: 05/13/18 Discharge date: 05/14/18 HPI HPI: 62-year-old female presents to the ER with complaints of shortness of breath, cough, and weakness. Patient was in the hospital a few days ago and chest x-ray was negative and then presented to the ER and showed a right lower lobe pneumonia. Patient has a history of lung cancer and smokes. Patient admitted for hospital-acquired pneumonia antibiotics Zosyn and vancomycin and speech eval for possible aspiration pneumonia. Hospital Course Hospital Course: antibotics- and breathing treatments today pt states better and wants to dc home due to appointment follow up in office on Objective Vital signs: Temp Pulse Resp BP Pulse Ox 98.0 F 90 18 103/56 94 L 05/14/18 08:00 05/14/18 08:00 05/14/18 08:00 05/14/18 08:00 05/14/18 08:00 no acute distress - *Routine HEENT Exam Head: Present: normocephalic Eye: Present: EOMI ENT: Present: mucous membranes moist - *Routine Neck Exam Present: full ROM - *Routine Respiratory Exam Present: rhonchi, wheezes - *Routine Cardiovascular Exam Present: RRR - *Routine Abdominal Exam Present: soft, normoactive bowel sounds - *Routine Extremities Exam Present: full ROM - *Routine Skin Exam Present: intact - *Routine Neurological Exam Present: alert, oriented X3 - Routine Psychiatric Exam Present: normal affect Results Labs on day of discharge: Preliminary micro results at discharge 05/13/18 04:30 Blood Culture - Preliminary Blood 05/13/18 04:30 Blood Culture - Preliminary Blood - Additional Comments rounded with laura all orders per laura Discharge Plan - Patient Discharge Instructions ACTIVITY: Continue current activity DIET: continue same diet - Follow up Plan Follow up with: Bridger Aguilar MD [Primary Care Provider] - 05/18/18 Disposition: Home, Self-Custodial Medications: Home Medications Medication Instructions Recorded Confirmed Type Atorvastatin Calcium [Atorvastatin 40 mg PO HS 05/08/18 05/13/18 History 40mg Tab] Benzonatate [Benzonatate 100mg 100 mg PO TIDP PRN 05/08/18 05/13/18 History cap] Buprenorphine HCl/Naloxone HCl 1 each SL DAILY 05/08/18 05/13/18 History [Buprenorphin-Naloxon 8-2 mg Sl] Omeprazole [Omeprazole 20mg 20 mg PO DAILY 05/08/18 05/13/18 History Capsule] Azithromycin [Zithromax 250mg 250 mg PO DIRECTED 05/13/18 05/13/18 History tab] Ipratropium/Albuterol Sulfate 1 puff INHALATION BID 05/13/18 05/13/18 History [Combivent Respimat] Prescriptions/Medication Reconciliation: New Benzonatate [Tessalon Perle 100mg Cap] 100 mg PO BID 3 Days #14 cap levoFLOXacin [Levaquin 500mg tab] 500 mg PO DAILY #5 tab Continue Atorvastatin Calcium [Atorvastatin 40mg Tab] 40 mg PO HS Omeprazole [Omeprazole 20mg Capsule] 20 mg PO DAILY Buprenorphine HCl/Naloxone HCl [Buprenorphin-Naloxon 8-2 mg Sl] 1 each SL DAILY Ipratropium/Albuterol Sulfate [Combivent Respimat] 1 puff INHALATION BID Benzonatate [Benzonatate 100mg cap] 100 mg PO TIDP PRN PRN Reason: Cough predniSONE [Prednisone 20mg Tab] 20 mg PO BID 5 Days #10 tab Discontinued Azithromycin [Zithromax 250mg tab] 250 mg PO DIRECTED
== END 2018-05-14 09:00 | disposition home or self-care (01) ==
LOC: ER 04:25 → 2ND 06:04
PROVIDERS: ADMIT Emergency Medicine; ATTEND Emergency Medicine

== ENCOUNTER → 2018-05-18 15:16 | Outpatient (POV) | payer SELFPAY | PROVIDERS: PCP Emergency Medicine; Visit Provider Internal Medicine | DX: Z00.00 Encounter for general adult medical examination without abnormal findings (principal) ==

== ENCOUNTER → 2018-05-19 11:38 | Outpatient (CLI) | payer MEDICARE, MEDICAID, SELFPAY ==
[2018-05-19 12:14] LABS: Basophils % 0.1 % (0.1-2.0); Eosinophils % 0.1 % (0.1-12.0); Hemoglobin 15.1 g/dL (12.2-16.2); Lymphocytes # 0.9 K/mm3 (0.7-4.5); Lymphocytes % 5.1 K/mm3 (10-50); Mean Corpuscular HGB Conc 32.9 g/dL (31.8-35.4); Mean Corpuscular Hemoglobin 32.1 pg (27.0-31.2); Mean Corpuscular Volume 97.5 fl (81-99); Mean Platelet Volume 7.5 fl (7.4-10.4); Monocytes # 0.7 K/mm3 (0.1-1.0); Monocytes % 3.8 % (1.7-9.3); Neutrophils # 15.8 K/mm3 (1.8-7.8); Neutrophils % 90.9 % (37.0-80.0); Platelet Count 283 K/mm3 (142-424); Red Blood Count 4.72 M/mm3 (4.20-5.40); Red Cell Distribution Width 13.1 % (11.5-17.5); White Blood Count 17.4 K/mm3 (4.8-10.8)
[2018-05-19 12:25] LABS: MANUAL DIFFERENTIAL MANUAL DIFFERENTIAL (MANUAL DIFF)
[2018-05-19 12:43] LABS: Lymphocytes % 5 % (10-50); Monocytes % 1 % (2-9); Neutrophils % 94 % (42-76); Total Cells Counted 100
[2018-05-19 12:44] LABS: Platelet Estimate Normal; RBC Morphology Normal
== END ==
PROVIDERS: PCP Emergency Medicine; Visit Provider Internal Medicine
DX: J44.9 Chronic obstructive pulmonary disease, unspecified (principal); J18.9 Pneumonia, unspecified organism; Z72.0 Tobacco use
CPT/HCPCS: 36415; 85007; 85025; 87040

== ENCOUNTER → 2018-08-04 13:18 | Outpatient (CLI) | payer MEDICARE, MEDICAID, SELFPAY ==
[2018-08-04 14:10] VITALS: PULSE 78; PULSE 82
--- NOTE | 2018-08-04 14:40 | CT_ITS ---
CT chest wo con HISTORY: Follow-up lung cancer ITS.REASON: COPD; BRONCHOGENIC LUNG CA RT. ORDERING PHYSICIAN: Jason Wilson MD PATIENT AGE: 63 years COMPARISON: 06/16/2017 Technique: Axial images obtained with sagittal and coronal reformats. All CT scans at the facility use one or more dose reduction, viz: automated exposure control, ma/kV adjustment per patient size (including targeted exams where dose is matched to indication, i.e. head), or iterative reconstruction technique. FINDINGS: Extensive vascular calcification of the aorta and great vessels. Coronary artery calcifications are also present. Normal heart size without evidence of pericardial effusion. Small nodes are present in the mediastinum not significantly changed. Mediastinal and hilar evaluation is limited without IV contrast. There are scattered pulmonary fibrotic changes with centrilobular emphysema and COPD. There is an enlarging right hilar mass. The abnormal soft tissue density measures 2.2 x 1.4 cm. Some of this is likely related to unopacified pulmonary vessel however, this area of soft tissue density has increased in size compared to the previous exam. Fibrotic changes are once again noted in the right midlung and may be related to postradiation pneumonitis. There is a calcified granuloma in the right perihilar region. Previously there was no soft tissue density adjacent to this granuloma. On today's study soft tissue density extends from the right hilum to slightly lateral to this granuloma suspicious for recurrent lung cancer. Prominent bronchovascular markings are present in the lingula with some faint nodular opacities and could be related to patchy pneumonia. No effusions are evident. Nonobstructing stones are present in the right kidney. The adrenal glands have an unremarkable appearance. There are old right-sided rib fractures with pleural thickening/calcification. IMPRESSION: 1. Recurrent right hilar mass suspicious for recurrent lung carcinoma with associated postradiation changes. 2. Centrilobular emphysema/COPD 3. Mild pneumonitis in the lingula
== END ==
PROVIDERS: PCP Emergency Medicine; Visit Provider Internal Medicine
DX: J44.9 Chronic obstructive pulmonary disease, unspecified (principal); C34.91 Malignant neoplasm of unspecified part of right bronchus or lung
CPT/HCPCS: 71250; 94060; 94640; 94727; 94729

== ENCOUNTER 2018-08-20 17:03 | Observation (INO) ==
[2018-08-20 17:31] LABS: Basophils % 0.2 % (0.1-2.0); Eosinophils % 0.2 % (0.1-12.0); Hematocrit 47.3 % (37.0-47.0); Hemoglobin 15.2 g/dL (12.2-16.2); Lymphocytes % 6.6 % (10-50); Mean Corpuscular HGB Conc 32.2 g/dL (31.8-35.4); Mean Corpuscular Hemoglobin 31.5 pg (27.0-31.2); Mean Corpuscular Volume 97.9 fl (81-99); Mean Platelet Volume 7.3 fl (7.4-10.4); Monocytes % 6.4 % (1.7-9.3); Neutrophils # 13.4 K/mm3 (1.8-7.8); Neutrophils % 86.5 % (37.0-80.0); Platelet Count 262 K/mm3 (142-424); Red Blood Count 4.84 M/mm3 (4.20-5.40); Red Cell Distribution Width 13.9 % (11.5-17.5); White Blood Count 15.5 K/mm3 (4.8-10.8)
[2018-08-20 17:47] LABS: Alanine Aminotransferase 24 U/L (12-78); Albumin Level 3.6 gm/dL (3.4-5.0); Albumin/Globulin Ratio 0.9 (1.1-1.8); Alkaline Phosphatase 160 U/L (46-116); Anion Gap 11.1 mEq/L (5-15); Aspartate Amino Transferase 12 U/L (15-37); Bilirubin,Total 0.3 mg/dL (0.2-1.0); Blood Urea Nitrogen 9 mg/dL (7-18); Carbon Dioxide 33 mmol/L (21.0-32.0); Chloride 99 mmol/L (98-107); Ethyl Alcohol < 3 mg/dL (0-99); Globulin 3.8 gm/dl (1.3-3.2); Glucose 110 mg/dL (74-106); Potassium 4.1 mmoL/L (3.5-5.1); Sodium 139 mmol/L (136-145); Total Protein,Serum 7.4 gm/dL (6.4-8.2)
--- NOTE | 2018-08-20 17:49 | Emergency Department Note ---
ED Disposition Condition on Discharge: Good (Stable and improved) Time of Disposition: 19:48 - Critical Care Critical Care Time: No <Yancy Brooks III - Last Filed: 08/20/18 19:39> <KirkAlejandro hendricks - Last Filed: 08/20/18 21:13> Clinical Impression: Altered mental status Qualifiers: Altered mental status type: unspecified Qualified Code(s): R41.82 - Altered mental status, unspecified Disposition: Admitted as Observation Attestation: On 08/20/18, the high probability of a clinically significant, sudden or life threatening deterioration of the following system(s) required my full and direct attention, intervention and personal management. The time I documented below is in addition to time spent performing reported procedures but includes the following listed in this critical care notation. Medical Decision Making - Medical Records Medical records reviewed: Yes: I reviewed the patient's medical records. - Neftali Inquiry Pt receiving controlled substance: No Neftali was queried for this patient: No - Lab Data Lab results reviewed: Yes: I reviewed the patient's lab results. Result diagrams: 08/20/18 17:20 08/20/18 17:20 <Yancy Brooks III - Last Filed: 08/20/18 19:39> - Neftali Inquiry Neftali was queried for this patient: Yes Reference #:: [id number] Comment: 44 rxs. last 4 rxs for suboxone. - Lab Data Result diagrams: 08/20/18 17:20 08/20/18 17:20 - Physician Consults Physician Consulted: Lauren Time: 20:20 Reason -: Admission Comment/Response: Dr. Aguilar knows the patient well. This is a recurrent scenario, due to gabapentin overdose. Agrees to admit the patient to the hospital. We discussed the patient's clinical information, including history, exam, laboratory and radiology results and ED course. Per hospital procedure, I will write temporary bridge inpatient orders on the patient. Specific orders requested by the admitting physician: Observation, no specific treatment <Alejandro Castelan - Last Filed: 08/20/18 21:13> Vital Signs: 08/20/18 17:14 08/20/18 17:44 08/20/18 17:48 Temperature 98.7 F Temperature Source Oral Pulse Rate Pulse Rate [Left Radial] 112 H 140 H 137 H Respiratory Rate 18 Blood Pressure [Right Arm] 108/64 L 185/86 H 203/97 H Blood Pressure Mean [Right Arm] 78 119 132 Blood Pressure Source [Right Arm] Automatic Cuff Automatic Cuff Automatic Cuff Blood Pressure Position [Right Arm] Sitting Sitting Sitting 02 Sat by Pulse Oximetry 96 95 98 Oxygen Delivery Method Room Air Non-Rebreather Non-Rebreather Oxygen Flow Rate (LPM) 15 15 08/20/18 17:54 08/20/18 17:55 08/20/18 17:58 Temperature Temperature Source Pulse Rate 130 H Pulse Rate [Left Radial] 135 H 132 H Respiratory Rate Blood Pressure [Right Arm] 203/101 H 165/91 H Blood Pressure Mean [Right Arm] 135 115 Blood Pressure Source [Right Arm] Automatic Cuff Automatic Cuff Blood Pressure Position [Right Arm] Sitting Sitting 02 Sat by Pulse Oximetry 94 L 95 Oxygen Delivery Method Non-Rebreather Non-Rebreather Oxygen Flow Rate (LPM) 15 15 08/20/18 18:25 08/20/18 18:35 08/20/18 18:55 Temperature Temperature Source Pulse Rate Pulse Rate [Left Radial] 113 H 136 H 107 H Respiratory Rate 24 22 22 Blood Pressure [Right Arm] 149/82 H 181/83 H 163/80 H Blood Pressure Mean [Right Arm] 104 115 107 Blood Pressure Source [Right Arm] Automatic Cuff Automatic Cuff Automatic Cuff Blood Pressure Position [Right Arm] Sitting Sitting Sitting 02 Sat by Pulse Oximetry 92 L 92 L 92 L Oxygen Delivery Method Nasal Cannula Nasal Cannula Nasal Cannula Oxygen Flow Rate (LPM) 3 3 3 08/20/18 19:30 08/20/18 19:47 08/20/18 20:00 Temperature Temperature Source Pulse Rate Pulse Rate [Left Radial] 96 H 93 H 90 Respiratory Rate 12 14 18 Blood Pressure [Right Arm] 139/65 140/64 137/68 Blood Pressure Mean [Right Arm] 89 89 91 Blood Pressure Source [Right Arm] Automatic Cuff Automatic Cuff Automatic Cuff Blood Pressure Position [Right Arm] Supine Sitting Supine 02 Sat by Pulse Oximetry 92 L 92 L 92 L Oxygen Delivery Method Room Air Nasal Cannula Nasal Cannula Oxygen Flow Rate (LPM) 3 2 08/20/18 20:08 08/20/18 20:47 Temperature Temperature Source Pulse Rate Pulse Rate [Left Radial] 88 97 H Respiratory Rate 14 14 Blood Pressure [Right Arm] 139/71 133/75 Blood Pressure Mean [Right Arm] 93 94 Blood Pressure Source [Right Arm] Automatic Cuff Blood Pressure Position [Right Arm] Sitting 02 Sat by Pulse Oximetry 93 L 94 L Oxygen Delivery Method Nasal Cannula Nasal Cannula Oxygen Flow Rate (LPM) 3 - Lab Data Lab Results 08/20/18 17:20: WBC 15.5 H, RBC 4.84, Hgb 15.2, Hct 47.3 H, MCV 97.9, MCH 31.5 H , MCHC 32.2, RDW 13.9, Plt Count 262, MPV 7.3 L, Neut % (Auto) 86.5 H, Lymph % (Auto) 6.6 L, [place] % (Auto) 6.4, Eos % (Auto) 0.2, Baso % (Auto) 0.2, Neut # (Auto) 13.4 H, Lymph # (Auto) 1.0, [place] # (Auto) 1.0, Eos # (Auto) 0.0, Baso # (Auto) 0.0, Total Counted 100, Neutrophils % (Manual) 84 H, Band Neutrophils % 6.0, Lymphocytes % (Manual) 7 L, Monocytes % (Manual) 3, Platelet Estimate Normal, RBC Morphology Normal 08/20/18 17:20: Sodium 139, Potassium 4.1, Chloride 99, Carbon Dioxide 33 H, Anion Gap 11.1, BUN 9, Creatinine 0.70, Estimated Creat Clear 47, Estimated GFR 85, Est GFR ( Amer) 103, Glucose 110 H, Calcium 9.0, Total Bilirubin 0.3, AST 12 L, ALT 24, Alkaline Phosphatase 160 H, Total Protein 7.4, Albumin 3.6, Globulin 3.8 H, Albumin/Globulin Ratio 0.9 L, Plasma/Serum Alcohol < 3 08/20/18 17:20: PT 9.4, INR 0.91, APTT 31.8 08/20/18 17:20: CK-MB (CK-2) 3.6 08/20/18 17:20: B-Natriuretic Peptide 84 08/20/18 17:20: Troponin I < 0.02 08/20/18 17:20: Magnesium 1.8 08/20/18 17:45: Urine Opiates Screen Negative, Urine Methadone Screen Negative, Ur Barbituates Screen Negative, Ur Phencyclidine Scrn Negative, Ur Amphetamines Screen Negative, U Benzodiazepines Scrn Negative, Urine Cocaine Screen Negative, U Marijuana (THC) Screen Negative 08/20/18 17:59: Specimen Source Right radial, O2 % 100%, nrb, ABG pH 7.24 L*, ABG pCO2 49.7 H, ABG pO2 166.8 H, ABG HCO3 20.6 L, ABG Total CO2 22.1 L, ABG O2 Saturation 99, ABG Base Excess -6.9 L, Gregg Test Patient unable Orders (Tests/Meds): ED MEDICATIONS Generic Name Dose Route Start Last Admin Trade Name Freq PRN Reason Stop Dose Admin Sodium Chloride 1,000 mls @ 75 mls/hr 08/20/18 20:50 Sod Chlor 0.9% 1000ml Bag IV 09/19/18 20:49 .[id number] MILI Discontinued Medications Generic Name Dose Route Start Last Admin Trade Name Freq PRN Reason Stop Dose Admin Albuterol/Ipratropium 3 ml 08/20/18 17:46 08/20/18 17:58 Duoneb 3ml Neb IH 08/20/18 17:47 3 ml ONCE ONE Administration Diphenhydramine HCl 25 mg 08/20/18 17:46 08/20/18 17:44 Benadryl 50mg/1ml Vial IV 08/20/18 17:47 25 mg ONCE ONE Administration Famotidine 20 mg 08/20/18 17:46 08/20/18 18:24 Pepcid 20mg/2ml Vial IV 08/20/18 17:47 20 mg ONCE ONE Administration Levetiracetam 1,000 mg/ Sodium 110 mls @ 220 mls/hr 08/20/18 18:20 08/20/18 19:04 Chloride IV 08/20/18 18:21 220 mls/hr ONCE ONE Administration Lorazepam 1 mg 08/20/18 18:36 08/20/18 18:49 Ativan 2mg/Ml Vial IV 08/20/18 18:37 1 mg ONCE ONE Administration Methylprednisolone Sodium Succinate 125 mg 08/20/18 17:46 08/20/18 17:43 Solu-Medrol 125mg/2ml Vial IV 08/20/18 17:47 125 mg ONCE ONE Administration Naloxone HCl 2 mg 08/20/18 17:49 08/20/18 17:41 Narcan 2mg/2ml Syringe IV 08/20/18 17:50 2 mg ONCE ONE Administration Ondansetron HCl 4 mg 08/20/18 17:43 08/20/18 18:40 Zofran 4mg/2ml Vial IV 08/20/18 17:44 4 mg ONCE ONE Administration ORDERS Category Date Time Status Prolactin Stat Lab 08/20/18 17:20 Received ECG Request by /Kira Stat Y 08/20/18 17:44 Stop Req Medical Decision Narrative: 18:48 Pt was evaluated. Work up ordered. Pt subsequently had a sudden episode of hypotension and tachycardia. Pt placed on 100% O2 @ 15 L/min via NRB. Narcan 2 mg IVP given. Nursing also thought her tongue seemed a little swollen compared to in triage. As a result, I ordered SoluMedrol 125 mg IVP, Benadry 25 mg IVP and Pepcid 20 mg IVP. I have reviewed pt's labs. WBC mildly elevated. CMP unremarkable. CT head report reviewed. Prolactin ordered but is a send out test. I did order Keppra 1 gm IVPB and Ativan 1 mg IVP, which appeared to stop her shaking and tremor. Pt's VSS. I have discussed case with her including results of work up, diagnosis and care plan. 19:39 Case discussed with neurologist Dr. Plummer. He did not recommend transfer for video EEG at this time, and does not perform these over the weekend. He was in agreement with current treatment in the ER. He felt that this pt is a difficult case due to the infrequent timing of her spells. He recommended that pt follow up with local neurology or pt could follow up with him for consultation by scheduling at . I have discussed this consultation with and answered all questions. ER staff has been attempting to contact Dr. Aguilar for admission. 19:58 Pt care will be transferred to Dr. Castelan at 20:00 pending call back from Dr. Aguilar for admission to observation. (Yancy Brooks III) At shift change, Dr. Brooks states workup complete. Plan is to admit patient to Dr. Aguilar. Has not been able to obtain a return call from Dr. Aguilar as of yet. Requests that I continue efforts to contact Lauren for admission. (Alejandro Castelan) General Adult HPI - General Mode of Arrival: Wheelchair Source of Information: Relative (Daughter), Medical Record Limitations: No Limitations Description of Symptoms (Recalled from ER Triage Doc. by RN): PT family states that pt started about 30 minutes ago with tremors, states she has a hx of these, has been told by her PCP that she is not having seizure. She was seen in [facility] for this one week ago and was given fu with a neurologish and a script for magnesium and the tremors went away for one week. <Yancy Brooks III - Last Filed: 08/20/18 19:39> <Alejandro Castelan - Last Filed: 08/20/18 21:13> - General Chief complaint: Seizure Stated complaint: Possible Seizure Time Seen by Provider: 08/20/18 17:30 - History of Present Illness HPI narrative: Pt is here in the ER from home via POV with daughter for evaluation after she began to have tremors and shaking at home. Pt has had similar episodes in the past. Pt has been diagnosed with pseudoseizures. Pt was seen at [facility] on Thursday of this week. Pt was evaluated, and had screening labs and CT head performed. Daughter states work up results were all normal. Pt apparently improved after receiving IV Ativan and she was subsequently discharged to home. Pt now here with similar scenario and complaints. Pt noted to have shaking and tremor of her upper body and is not answering any of my questions. So a thorough ROS is unobtainable. Pt apparently was given an Rx for magnesium that daughter states she has been taking. Pt has not seen a neurologist to date. Her PCP is Dr. Aguilar. [place] records requested. (Yacny Brooks III) - Related Data Home Medications Medication Instructions Recorded Confirmed Atorvastatin Calcium [Atorvastatin 40 mg PO HS 05/08/18 07/23/18 40mg Tab] Ipratropium/Albuterol Sulfate 1 puff IH NEEDED PRN 07/05/18 07/23/18 [Combivent Respimat Inh] LORazepam [Ativan 0.5mg tablet] 0.5 mg PO BID 07/19/18 07/23/18 Pregabalin [Lyrica] 75 mg PO BID 11/05/18 11/09/18 Buprenorphine HCl/Naloxone HCl 1 each SL DAILY 08/20/18 08/20/18 [Suboxone 8 mg-2 mg Sl Film] Previous Rx's Medication Instructions Recorded omeprazole 20 mg capsule,delayed 20 mg PO DAILY #30 cap 07/01/18 release Azithromycin [Zithromax 250mg 250 mg PO DIRECTED #6 tab 07/19/18 tab] prednisone 20 mg tablet 20 mg PO BID 5 Days #10 tab 07/23/18 ipratropium 20 mcg-albuterol 100 1 puff INHALATION BID #4 g 07/26/18 mcg/actuation mist for inhalation albuterol sulfate HFA 90 2 puff INHALATION Q4HP PRN #18 g 07/30/18 mcg/actuation aerosol inhaler predniSONE [Deltasone 10mg tablet] 10 mg PO BID #10 tab 08/06/18 prednisone 10 mg tablet 10 mg PO BID #10 tab 08/10/18 prednisone 20 mg tablet 20 mg PO BID #10 tab 08/10/18 Allergies Allergy/AdvReac Type Severity Reaction Status Date / Time No Known Allergies Allergy Verified 08/06/18 10:46 [facility] History I have reviewed the patient's past medical history: Yes Medical History: Reports:: Cancer, Chronic Obstructive Pulmonary Disease (COPD), Cerebrovascular Accident, Gastroesophageal Reflux Disease(GERD), Hyperlipidemia, Seizures Denies:: Diabetes Mellitus Type 1, Diabetes Mellitus Type 2, MRSA Other Medical History: Reports: Anemia Laterality Cases: Bilateral: Tonsillectomy, Other Other Surgeries: Yes: Hysterectomy-Total, Other Amputation: No Fractures: No Comment: Cartoid artery - Social History Smoking Status: Current every day smoker Tobacco Type: cigarettes # Packs/Day (cigarettes): 1 #Yrs smoked (if former smoker): 45 Alcohol Intake: never Alcohol Intake Frequency:: other Substance Use Type: former substance user Occupational Status: unemployed Housing: house Household Members: spouse, family - Psychiatric History Expresses thoughts of harming self/others: None Suicide Plan Description: No Plan Family Hx:: Cancer <Yancy Brooks III - Last Filed: 08/20/18 19:39> ROS Obtained: Yes unobtainable due to mental status <Yancy Brooks III - Last Filed: 08/20/18 19:39> Physical Exam - General General appearance: anxious, other (agitated and tremulous. Nonverbal to questions.) - Head Head exam: atraumatic, normocephalic - Eye Eye exam: Present: PERRL, EOMI - ENT ENT exam: Present: mucous membranes moist - Neck Neck exam: Present: trachea midline - Chest Chest inspection: Present: normal inspection, symmetric chest wall rise - Respiratory Respiratory exam: Present: wheezes (scattered end-expiratory wheezes bilaterally.), other (Equally diminished BS bilaterally.) - Cardiovascular Cardiovascular exam: Present: tachycardia, normal heart sounds - Abdominal Exam Abdominal exam: Present: soft, hypoactive bowel sounds. Absent: distention, tenderness, rebound - Extremities Exam Extremities exam: Present: normal inspection, full ROM - Neurological Exam Neurological exam: Present: CN II-XII intact, other (Awake but nonverbal to questions. Pt noted to have upper body tremor/shaking, subsequent tremor of LUE, and OU leftward gaze.) - Psychiatric Psychiatric exam: Present: anxious - Skin Skin exam: Present: warm, dry. Absent: rash, diaphoresis <DobaYancy calvin III - Last Filed: 08/20/18 19:39>
[2018-08-20 18:01] LABS: Activated Partial Thrombo Time 31.8 seconds (23.6-34.0); INR 0.91 (0.9-1.1); Prothrombin Time 9.4 seconds (9.4-11.8)
[2018-08-20 18:02] LABS: ABG Base Excess -6.9 mmol/L (-2.4-2.3); ABG HCO3 20.6 mmhg (22.0-26.0); ABG Oxygen Saturation 99 % (90-100); ABG PCO2 49.7 mmhg (35.0-45.0); ABG PH 7.24 mmol/L (7.35-7.45); ABG PO2 166.8 mmhg (80-100); ABG TCO2 22.1 mmhg (23-27)
[2018-08-20 18:03] LABS: Allen's Test Patient Unable
[2018-08-20 18:09] LABS: Amphetamine/Metha Screen,Urine Negative ng/mL (<1000); Barbiturates Screen,Urine Negative ng/mL (<200); Benzodiazepines Screen,Urine Negative ng/mL (<200); Cannabinoid Screen,Urine Negative ng/mL (<50); Cocaine Screen,Urine Negative ng/mL (<300); Methadone Screen,Urine Negative ng/mL (<300); Opiate Screen,Urine Negative ng/mL (<300); Phencyclidine Screen,Urine Negative ng/mL (<25)
[2018-08-20 18:10] LABS: Lymphocytes % 7 % (10-50); Monocytes % 3 % (2-9); Neutrophils % 84 % (42-76); RBC Morphology Normal; Total Cells Counted 100
--- NOTE | 2018-08-21 08:24 | H&P/Discharge Summary ---
General - General Admission date:: 08/20/18 Discharge date: 08/21/18 *Admission Date: 08/20/18 *Chief complaint: change in mental status *History of present illness: this wf who presented to ed -t is here in the ER from home via POV with daughter for evaluation after she began to have tremors and shaking at home. Pt has had similar episodes in the past. Pt has been diagnosed with pseudoseizures. Pt was seen at [facility] on Thursday of this week. Pt was evaluated, and had screening labs and CT head performed. Daughter states work up results were all normal. Pt apparently improved after receiving IV Ativan and she was subsequently discharged to home. Pt now here with similar scenario and complaints. Pt noted to have shaking and tremor of her upper body and is not answering any of my questions. So a thorough ROS is unobtainable. Pt apparently was given an Rx for magnesium that daughter states she has been taking. Pt has not seen a neurologist to date. Her PCP is Dr. Aguilar. [place] records requested. :48 Pt was evaluated. Work up ordered. Pt subsequently had a sudden episode of hypotension and tachycardia. Pt placed on 100% O2 @ 15 L/min via NRB. Narcan 2 mg IVP given. Nursing also thought her tongue seemed a little swollen compared to in triage. As a result, I ordered SoluMedrol 125 mg IVP, Benadry 25 mg IVP and Pepcid 20 mg IVP. I have reviewed pt's labs. WBC mildly elevated. CMP unremarkable. CT head report reviewed. Prolactin ordered but is a send out test. I did order Keppra 1 gm IVPB and Ativan 1 mg IVP, which appeared to stop her shaking and tremor. Pt's VSS. I have discussed case with her including results of work up, diagnosis and care plan. 19:39 Case discussed with neurologist Dr. Plummer. He did not recommend transfer for video EEG at this time, and does not perform these over the weekend. He was in agreement with current treatment in the ER. He felt that this pt is a difficult case due to the infrequent timing of her spells. He recommended that pt follow up with local neurology or pt could follow up with him for consultation by scheduling at . I have discussed this consultation with and answered all questions. pt was admitted at this time for eval [facility] History I have reviewed the patient's past medical history: Yes Medical History: Reports:: Cancer, Chronic Obstructive Pulmonary Disease (COPD), Cerebrovascular Accident, Gastroesophageal Reflux Disease(GERD), Hyperlipidemia, Seizures Denies:: Diabetes Mellitus Type 1, Diabetes Mellitus Type 2, MRSA Other Medical History: Reports: Anemia Laterality Cases: Bilateral: Tonsillectomy, Other Other Surgeries: Yes: Hysterectomy-Total, Other Amputation: No Fractures: No - *Social History Educational Level: Completed GED/General Educational Development Smoking Status: Current every day smoker Tobacco Type: cigarettes # Packs/Day (cigarettes): 1 #Yrs smoked (if former smoker): 45 Alcohol Intake: never Alcohol Intake Frequency:: other Substance Use Type: denies use, former substance user Occupational Status: unemployed Housing: house Household Members: spouse, family - Psychiatric History Expresses thoughts of harming self/others: None Suicide Plan Description: No Plan *Family Hx:: Cancer Review of Systems - Review of Systems Review of systems:: pertinent systems reviewed and negative unless documented below - Constitutional Denies fever(s) - Eyes Denies change in vision - ENT Denies difficulty swallowing, Denies sore throat - *Cardiovascular Denies chest pain, Denies shortness of breath - *Respiratory Denies cough, Denies coughing up blood - *Gastrointestinal Denies abdominal pain, Denies nausea, Denies vomiting - *Genitourinary Denies blood in urine - *Musculoskeletal Denies joint pain, Denies neck pain - Integumentary/Breasts Denies rash - *Neurologic Denies headache(s), Denies seizure-like activity - Psychiatric Reports behavioral changes, Reports confusion, Denies thoughts of hurting/killing yourself Exam Vital signs and Labs for Last 24 Hours: Temp Pulse Resp BP Pulse Ox 97.7 F 88 20 125/65 81 L 08/21/18 04:00 08/21/18 06:03 08/21/18 04:00 08/21/18 04:00 08/21/18 06:03 Laboratory Results - last 24 hr 08/20/18 17:20: WBC 15.5 H, RBC 4.84, Hgb 15.2, Hct 47.3 H, MCV 97.9, MCH 31.5 H , MCHC 32.2, RDW 13.9, Plt Count 262, MPV 7.3 L, Neut % (Auto) 86.5 H, Lymph % (Auto) 6.6 L, [place] % (Auto) 6.4, Eos % (Auto) 0.2, Baso % (Auto) 0.2, Neut # (Auto) 13.4 H, Lymph # (Auto) 1.0, [place] # (Auto) 1.0, Eos # (Auto) 0.0, Baso # (Auto) 0.0, Total Counted 100, Neutrophils % (Manual) 84 H, Band Neutrophils % 6.0, Lymphocytes % (Manual) 7 L, Monocytes % (Manual) 3, Platelet Estimate Normal, RBC Morphology Normal 08/20/18 17:20: Sodium 139, Potassium 4.1, Chloride 99, Carbon Dioxide 33 H, Anion Gap 11.1, BUN 9, Creatinine 0.70, Estimated Creat Clear 47, Estimated GFR 85, Est GFR ( Amer) 103, Glucose 110 H, Calcium 9.0, Total Bilirubin 0.3, AST 12 L, ALT 24, Alkaline Phosphatase 160 H, Total Protein 7.4, Albumin 3.6, Globulin 3.8 H, Albumin/Globulin Ratio 0.9 L, Plasma/Serum Alcohol < 3 08/20/18 17:20: PT 9.4, INR 0.91, APTT 31.8 08/20/18 17:20: CK-MB (CK-2) 3.6 08/20/18 17:20: B-Natriuretic Peptide 84 08/20/18 17:20: Troponin I < 0.02 08/20/18 17:20: Magnesium 1.8 08/20/18 17:45: Urine Opiates Screen Negative, Urine Methadone Screen Negative, Ur Barbituates Screen Negative, Ur Phencyclidine Scrn Negative, Ur Amphetamines Screen Negative, U Benzodiazepines Scrn Negative, Urine Cocaine Screen Negative, U Marijuana (THC) Screen Negative 08/20/18 17:59: Specimen Source Right radial, O2 % 100%, nrb, ABG pH 7.24 L*, ABG pCO2 49.7 H, ABG pO2 166.8 H, ABG HCO3 20.6 L, ABG Total CO2 22.1 L, ABG O2 Saturation 99, ABG Base Excess -6.9 L, Gregg Test Patient unable I & O for Last 24 hours: Intake & Output 08/18/18 08/19/18 08/20/18 08/21/18 11:59 11:59 11:59 11:59 Intake Total 619 / 619 Balance 619 / 619 Weight 112 lb 2 oz - Constitutional no acute distress, thin - *Routine HEENT Exam Head: Present: normocephalic Eye: Present: EOMI, PERRL ENT: Present: mucous membranes dry Comments: no evid of tongue biting - *Routine Neck Exam Present: supple - *Routine Respiratory Exam Present: CTA bilaterally, rhonchi - *Routine Cardiovascular Exam Present: RRR, murmur - *Routine Abdominal Exam Present: soft - *Routine Extremities Exam Present: full ROM - *Routine Skin Exam Present: intact - *Routine Neurological Exam Present: alert, oriented X3, CN II-XII intact - Routine Psychiatric Exam Present: normal affect Hospital Course Hospital Course: pt did well and had no other events in hospital- she denied any neurotin misuse and she has pending neuro eval - pt back at baseline Results Labs on day of discharge: Labs from last 24 hours 08/20/18 08/20/18 08/20/18 17:59 17:45 17:20 WBC RBC Hgb Hct MCV MCH MCHC RDW Plt Count MPV Neut % (Auto) Lymph % (Auto) [place] % (Auto) Eos % (Auto) Baso % (Auto) Neut # (Auto) Lymph # (Auto) [place] # (Auto) Eos # (Auto) Baso # (Auto) Total Counted Neutrophils % (Manual) Band Neutrophils % Lymphocytes % (Manual) Monocytes % (Manual) Platelet Estimate RBC Morphology PT INR APTT Specimen Source Right radial O2 % 100%, nrb ABG pH 7.24 L* ABG pCO2 49.7 H ABG pO2 166.8 H ABG HCO3 20.6 L ABG Total CO2 22.1 L ABG O2 Saturation 99 ABG Base Excess -6.9 L Gregg Test Patient unable Sodium Potassium Chloride Carbon Dioxide Anion Gap BUN Creatinine Estimated Creat Clear Estimated GFR Est GFR ( Amer) Glucose Calcium Magnesium 1.8 Total Bilirubin AST ALT Alkaline Phosphatase CK-MB (CK-2) Troponin I B-Natriuretic Peptide Total Protein Albumin Globulin Albumin/Globulin Ratio Urine Opiates Screen Negative Urine Methadone Screen Negative Ur Barbituates Screen Negative Ur Phencyclidine Scrn Negative Ur Amphetamines Screen Negative U Benzodiazepines Scrn Negative Urine Cocaine Screen Negative U Marijuana (THC) Screen Negative Plasma/Serum Alcohol 08/20/18 08/20/18 08/20/18 17:20 17:20 17:20 WBC RBC Hgb Hct MCV MCH MCHC RDW Plt Count MPV Neut % (Auto) Lymph % (Auto) [place] % (Auto) Eos % (Auto) Baso % (Auto) Neut # (Auto) Lymph # (Auto) [place] # (Auto) Eos # (Auto) Baso # (Auto) Total Counted Neutrophils % (Manual) Band Neutrophils % Lymphocytes % (Manual) Monocytes % (Manual) Platelet Estimate RBC Morphology PT INR APTT Specimen Source O2 % ABG pH ABG pCO2 ABG pO2 ABG HCO3 ABG Total CO2 ABG O2 Saturation ABG Base Excess Gregg Test Sodium Potassium Chloride Carbon Dioxide Anion Gap BUN Creatinine Estimated Creat Clear Estimated GFR Est GFR ( Amer) Glucose Calcium Magnesium Total Bilirubin AST ALT Alkaline Phosphatase CK-MB (CK-2) 3.6 Troponin I < 0.02 B-Natriuretic Peptide 84 Total Protein Albumin Globulin Albumin/Globulin Ratio Urine Opiates Screen Urine Methadone Screen Ur Barbituates Screen Ur Phencyclidine Scrn Ur Amphetamines Screen U Benzodiazepines Scrn Urine Cocaine Screen U Marijuana (THC) Screen Plasma/Serum Alcohol 08/20/18 08/20/18 08/20/18 17:20 17:20 17:20 WBC 15.5 H RBC 4.84 Hgb 15.2 Hct 47.3 H MCV 97.9 MCH 31.5 H MCHC 32.2 RDW 13.9 Plt Count 262 MPV 7.3 L Neut % (Auto) 86.5 H Lymph % (Auto) 6.6 L [place] % (Auto) 6.4 Eos % (Auto) 0.2 Baso % (Auto) 0.2 Neut # (Auto) 13.4 H Lymph # (Auto) 1.0 [place] # (Auto) 1.0 Eos # (Auto) 0.0 Baso # (Auto) 0.0 Total Counted 100 Neutrophils % (Manual) 84 H Band Neutrophils % 6.0 Lymphocytes % (Manual) 7 L Monocytes % (Manual) 3 Platelet Estimate Normal RBC Morphology Normal PT 9.4 INR 0.91 APTT 31.8 Specimen Source O2 % ABG pH ABG pCO2 ABG pO2 ABG HCO3 ABG Total CO2 ABG O2 Saturation ABG Base Excess Gregg Test Sodium 139 Potassium 4.1 Chloride 99 Carbon Dioxide 33 H Anion Gap 11.1 BUN 9 Creatinine 0.70 Estimated Creat Clear 47 Estimated GFR 85 Est GFR ( Amer) 103 Glucose 110 H Calcium 9.0 Magnesium Total Bilirubin 0.3 AST 12 L ALT 24 Alkaline Phosphatase 160 H CK-MB (CK-2) Troponin I B-Natriuretic Peptide Total Protein 7.4 Albumin 3.6 Globulin 3.8 H Albumin/Globulin Ratio 0.9 L Urine Opiates Screen Urine Methadone Screen Ur Barbituates Screen Ur Phencyclidine Scrn Ur Amphetamines Screen U Benzodiazepines Scrn Urine Cocaine Screen U Marijuana (THC) Screen Plasma/Serum Alcohol < 3 DS: Diagnosis - Discharge Diagnosis (1) Altered mental status Status: Acute (2) COPD (chronic obstructive pulmonary disease) Status: Acute Discharge Medications - Medications for Discharge Home Medication List at Discharge: Continue omeprazole 20 mg capsule,delayed release 20 mg PO DAILY #30 cap Atorvastatin Calcium [Atorvastatin 40mg Tab] 40 mg PO HS Ipratropium/Albuterol Sulfate [Combivent Respimat Inh] 1 puffs INHALATION NEEDED PRN PRN Reason: Shortness Of Breath Or Wheezing Albuterol Sulfate [Albuterol HFA Inhaler] 1 puffs INHALATION Q4-6H PRN PRN Reason: Shortness Of Breath Or Wheezing Ferrous Sulfate 1 tab PO BID Pregabalin [Lyrica] 75 mg PO BID Buprenorphine HCl/Naloxone HCl [Suboxone 8 mg-2 mg Sl Film] 1 each SL DAILY methylPREDNISolone [methylPREDNISolone 4mg Tablet] 4 mg PO DIRECTED
[2018-08-21 08:42] VITALS: BP 129/73
== END 2018-08-21 09:03 | disposition home or self-care (01) ==
LOC: 2ND 17:03 → ER 17:03 → 2ND 21:05
PROVIDERS: ADMIT Emergency Medicine; ATTEND Emergency Medicine
CPT/HCPCS: 70450; 71010; 71045; 80053; 80305; 80307; 82553; 82803; 83735; 83880; 84146; 84484; 85007; 85025; 85610; 85730; 93005; 94640; 94761; 96365; 96366; 96367; 96375; 99285; G0378; J1953; J2310; J2405

== ENCOUNTER → 2018-10-12 15:28 | Outpatient (POV) | payer MEDICARE, MEDICAID, SELFPAY | PROVIDERS: Visit Provider Internal Medicine | DX: Z00.00 Encounter for general adult medical examination without abnormal findings (principal) ==

== ENCOUNTER → 2019-01-26 10:50 | Outpatient (CLI) | payer MEDICARE, MEDICAID, SELFPAY | PROVIDERS: PCP Emergency Medicine; Visit Provider Nurse Practitioner Family | DX: Z79.899 Other long term (current) drug therapy (principal) | CPT/HCPCS: 93005 ==

== ENCOUNTER → 2019-01-28 14:01 | Outpatient (CLI) | payer MEDICARE, MEDICAID, SELFPAY ==
[2019-01-28 14:15] LABS: Basophils # 0.1 K/mm3 (0-0.2); Basophils % 0.6 % (0.1-2.0); Eosinophils # 0.1 K/mm3 (0.0-0.4); Eosinophils % 0.8 % (0.1-12.0); Hemoglobin 15.5 g/dL (12.2-16.2); Lymphocytes # 1.3 K/mm3 (0.7-4.5); Lymphocytes % 15.7 % (10-50); Mean Corpuscular HGB Conc 31.6 g/dL (31.8-35.4); Mean Corpuscular Hemoglobin 30.4 pg (27.0-31.2); Mean Corpuscular Volume 96.2 fl (81-99); Mean Platelet Volume 8.7 fl (7.4-10.4); Monocytes # 0.7 K/mm3 (0.1-1.0); Monocytes % 8.6 % (1.7-9.3); Neutrophils # 5.9 K/mm3 (1.8-7.8); Neutrophils % 74.2 % (37.0-80.0); Platelet Count 219 K/mm3 (142-424); Red Cell Distribution Width 13.7 % (11.5-17.5)
[2019-01-28 15:24] LABS: Alanine Aminotransferase 24 U/L (12-78); Albumin Level 3.8 gm/dL (3.4-5.0); Albumin/Globulin Ratio 1.1 (1.1-1.8); Alkaline Phosphatase 157 U/L (46-116); Anion Gap 12.3 mEq/L (5-15); Aspartate Amino Transferase 13 U/L (15-37); Bilirubin,Total 0.3 mg/dL (0.2-1.0); Blood Urea Nitrogen 11 mg/dL (7-18); Calcium 8.7 mg/dL (8.5-10.1); Carbon Dioxide 33 mmol/L (21.0-32.0); Chloride 97 mmol/L (98-107); Creatinine,Serum 0.61 mg/dL (0.55-1.02); Estimated Glomerular Filt Rate 100 ml/min (>60); GFR (African American) 121 ML/MIN (>60); Globulin 3.5 gm/dl (1.3-3.2); Glucose 131 mg/dL (74-106); Potassium 4.3 mmoL/L (3.5-5.1); Sodium 138 mmol/L (136-145); Thyroid Stimulating Hormone 1.33 uIU/ml (0.358-3.740); Total Protein,Serum 7.3 gm/dL (6.4-8.2)
[2019-01-28 15:44] LABS: Erythrocyte Sedimentation Rate 0 mm/hr (0-30)
[2019-01-30 17:31] LABS: Vitamin B12 >2000 pg/mL (232-1245)
== END ==
PROVIDERS: Visit Provider Emergency Medicine
DX: E87.6 Hypokalemia (principal)
CPT/HCPCS: 80053; 82607; 82652; 84439; 84443; 85025; 85651

== ENCOUNTER 2019-02-25 16:17 | Emergency (ER) | payer MEDICARE, MEDICAID, SELFPAY ==
[2019-02-25 16:24] VITALS: BP 149/70; PULSE 102; RESP 17; O2SAT 86; BMI 21.9
[2019-02-25 16:30] VITALS: PULSE 88; PULSE 90
--- NOTE | 2019-02-25 16:34 | HMH.EDGENADL ---
ED Disposition Clinical Impression: COPD exacerbation Chronic respiratory failure Qualifiers: Respiratory failure complication: hypoxia Qualified Code(s): J96.11 - Chronic respiratory failure with hypoxia Acute bronchitis Qualifiers: Bronchitis organism: unspecified organism Qualified Code(s): J20.9 - Acute bronchitis, unspecified Disposition: Left Against Medical Advice Condition on Discharge: Fair Instructions: DI for Chronic Obstructive Pulmonary Disease Additional Instructions: Zithromax and prednisone as prescribed. Continue oxygen and nebulizer treatments at home as previously prescribed. See her primary care doctor next week, call Thursday. Return to the emergency department if worsening shortness of breath, fever, confusion or lethargy. Prescriptions: predniSONE [Prednisone 10mg Tab Dose-Pack] 10 mg PO DAILY #42 pack Azithromycin [Zithromax 250mg tab] 250 mg PO DAILY #4 tab Referrals: Bridger Aguilar MD [Primary Care Provider] - - Critical Care Critical Care Time: No Attestation: On 02/25/19, the high probability of a clinically significant, sudden or life threatening deterioration of the following system(s) required my full and direct attention, intervention and personal management. The time I documented below is in addition to time spent performing reported procedures but includes the following listed in this critical care notation. Medical Decision Making - [place] Inquiry Pt receiving controlled substance: No Vital Signs: 02/25/19 16:24 Pulse Rate [Right Brachial] 102 H Respiratory Rate 17 Blood Pressure [Right Arm] 149/70 H Blood Pressure Mean [Right Arm] 96 Blood Pressure Source [Right Arm] Automatic Cuff Blood Pressure Position [Right Arm] Sitting 02 Sat by Pulse Oximetry 86 L Oxygen Delivery Method Nasal Cannula Oxygen Flow Rate (LPM) 2 - Lab Data Lab Results 02/25/19 16:48: Specimen Source Right radial, O2 % 28%, nc, ABG pH 7.32 L, ABG pCO2 65.6 H, ABG pO2 72.7 L, ABG HCO3 32.7 H, ABG Total CO2 34.8 H, ABG O2 Saturation 94, ABG Base Excess 6.6 H, Gregg Test Acceptable 02/25/19 17:00: WBC 8.9, RBC 4.55, Hgb 13.1, Hct 41.9, MCV 92.0, MCH 28.8, MCHC 31.3 L, RDW 13.3, Plt Count 249, Neut % (Auto) 53.4, Lymph % (Auto) 28.3, [place] % (Auto) 12.6 H, Eos % (Auto) 4.8, Baso % (Auto) 0.9, Neut # (Auto) 4.8, Lymph # (Auto) 2.5, [place] # (Auto) 1.1 H, Eos # (Auto) 0.4, Baso # (Auto) 0.1, Total Counted 100, Neutrophils % (Manual) 58, Band Neutrophils % 2.0, Lymphocytes % (Manual) 25, Monocytes % (Manual) 9, Eosinophils % (Manual) 6 H, Platelet Estimate Normal, RBC Morphology Normal 02/25/19 17:00: Sodium 135 L, Potassium 3.8, Chloride 97 L, Carbon Dioxide 34 H, Anion Gap 7.8, BUN 6 L, Creatinine 0.71, Estimated Creat Clear 51, Estimated GFR 84, Est GFR ( Amer) 101, Glucose 127 H, Calcium 8.4 L, Total Bilirubin 0.3, AST 26, ALT 25, Alkaline Phosphatase 144 H, Total Protein 6.6, Albumin 3.3 L, Globulin 3.3 H, Albumin/Globulin Ratio 1.0 L 02/25/19 17:00: Lactate 1.2 Result diagrams: 02/25/19 17:00 02/25/19 17:00 Orders (Tests/Meds): ED MEDICATIONS Generic Name Dose Route Start Last Admin Trade Name Freq PRN Reason Stop Dose Admin Sodium Chloride 3 ml 02/25/19 16:36 Sodium Chloride 3% 15ml Neb IH 03/27/19 16:35 ONCE PRN INDUCE SPUTUM COLLECTION Discontinued Medications Generic Name Dose Route Start Last Admin Trade Name Freq PRN Reason Stop Dose Admin Methylprednisolone Sodium Succinate 125 mg 02/25/19 16:46 02/25/19 17:03 Solu-Medrol 125mg/2ml Vial IV 02/25/19 16:47 125 mg ONCE ONE Administration ORDERS Category Date Time Status Chest XR 2 view (NOT portable) [XR chest 2V] Stat Exams 02/25/19 16:36 Taken Upper Respiratory Panel, PCR Stat Lab 02/25/19 16:36 Ordered Sputum Culture & Gram Stain Stat Micro 02/25/19 16:36 Ordered - Radiology Data #1 Image(s): Chest Image Reviewed: Yes I reviewed the patient's radiology image
--- NOTE | 2019-02-25 16:36 | XR_ITS ---
XR chest 2V HISTORY: ITS.REASON: soa, cough, current smoker ORDERING PHYSICIAN: Alejandro Castelan MD PATIENT AGE: 63 years COMPARISON: 08/20/2018 FINDINGS: Normal heart size.. Chronic increased density is present in the right perihilar region which may be related pulmonary fibrosis versus residual or recurrent neoplasm. The density is slightly greater when compared to the previous study possibly related to the technique. Cannot exclude underlying true enlargement. Consider chest CT with contrast for further evaluation. The remaining lungs are clear. COPD changes. IMPRESSION: Chronic changes in the right perihilar region with slight increased density in this area which could be related to residual recurrent neoplasm versus progressing fibrosis. Consider chest CT with contrast for further evaluation.
--- NOTE | 2019-02-25 17:02 | PC.NURSE ---
pt up to bathroom, respiratory at bedside
[2019-02-25 17:06] LABS: MANUAL DIFFERENTIAL MANUAL DIFFERENTIAL (MANUAL DIFF)
[2019-02-25 17:09] LABS: Basophils # 0.1 K/mm3 (0-0.2); Basophils % 0.9 % (0.1-2.0); Eosinophils # 0.4 K/mm3 (0.0-0.4); Eosinophils % 4.8 % (0.1-12.0); Hematocrit 41.9 % (37.0-47.0); Hemoglobin 13.1 g/dL (12.2-16.2); Lymphocytes # 2.5 K/mm3 (0.7-4.5); Lymphocytes % 28.3 % (10-50); Mean Corpuscular HGB Conc 31.3 g/dL (31.8-35.4); Mean Corpuscular Hemoglobin 28.8 pg (27.0-31.2); Monocytes # 1.1 K/mm3 (0.1-1.0); Monocytes % 12.6 % (1.7-9.3); Neutrophils # 4.8 K/mm3 (1.8-7.8); Neutrophils % 53.4 % (37.0-80.0); Platelet Count 249 K/mm3 (142-424); Red Blood Count 4.55 M/mm3 (4.20-5.40); Red Cell Distribution Width 13.3 % (11.5-17.5); White Blood Count 8.9 K/mm3 (4.8-10.8)
[2019-02-25 17:12] LABS: ABG Base Excess 6.6 mmol/L (-2.4-2.3); ABG HCO3 32.7 mmhg (22.0-26.0); ABG Oxygen Saturation 94 % (90-100); ABG PH 7.32 mmol/L (7.35-7.45); ABG PO2 72.7 mmhg (80-100); ABG TCO2 34.8 mmhg (23-27)
[2019-02-25 17:16] LABS: Allen's Test Acceptable
[2019-02-25 17:17] LABS: ABG PCO2 65.6 mmhg (35.0-45.0); Source Right Radial
[2019-02-25 17:21] LABS: Alanine Aminotransferase 25 U/L (12-78); Albumin Level 3.3 gm/dL (3.4-5.0); Alkaline Phosphatase 144 U/L (46-116); Anion Gap 7.8 mEq/L (5-15); Aspartate Amino Transferase 26 U/L (15-37); Bilirubin,Total 0.3 mg/dL (0.2-1.0); Blood Urea Nitrogen 6 mg/dL (7-18); Calcium 8.4 mg/dL (8.5-10.1); Carbon Dioxide 34 mmol/L (21.0-32.0); Chloride 97 mmol/L (98-107); Creatinine Clearance Estimated 51 mL/min (50-200); Creatinine,Serum 0.71 mg/dL (0.55-1.02); Estimated Glomerular Filt Rate 84 ml/min (>60); GFR (African American) 101 ML/MIN (>60); Globulin 3.3 gm/dl (1.3-3.2); Glucose 127 mg/dL (74-106); Potassium 3.8 mmoL/L (3.5-5.1); Sodium 135 mmol/L (136-145); Total Protein,Serum 6.6 gm/dL (6.4-8.2)
[2019-02-25 17:24] LABS: Eosinophils % 6 % (0-3); Lactic Acid 1.2 mmol/L (0.4-2.0); Lymphocytes % 25 % (10-50); Monocytes % 9 % (2-9); Neutrophils % 58 % (42-76); Total Cells Counted 100
[2019-02-25 17:25] LABS: Platelet Estimate Normal; RBC Morphology Normal
[2019-02-25 18:17] VITALS: BP 134/75; PULSE 83; RESP 16; TEMP 36.7; O2SAT 90
== END 2019-02-25 18:19 | disposition left against medical advice (07) ==
PROVIDERS: Emergency Provider Emergency Medicine; PCP Emergency Medicine
DX: J44.1 Chronic obstructive pulmonary disease with (acute) exacerbation (principal); J44.0 Chronic obstructive pulmonary disease with (acute) lower respiratory infection; J96.11 Chronic respiratory failure with hypoxia; K21.9 Gastro-esophageal reflux disease without esophagitis; E78.5 Hyperlipidemia, unspecified; F17.210 Nicotine dependence, cigarettes, uncomplicated
CPT/HCPCS: 71046; 80053; 82803; 83605; 85007; 85014; 85018; 85048; 85049; 96374; 99283

== ENCOUNTER → 2019-05-10 10:22 | Outpatient (POV) | payer MEDICARE, MEDICAID, SELFPAY | PROVIDERS: Visit Provider Internal Medicine | DX: Z00.00 Encounter for general adult medical examination without abnormal findings (principal) ==

== ENCOUNTER → 2019-07-12 15:23 | Outpatient (POV) | payer MEDICARE, MEDICAID, SELFPAY | PROVIDERS: Visit Provider Internal Medicine | DX: Z00.00 Encounter for general adult medical examination without abnormal findings (principal) ==

== ENCOUNTER 2019-07-31 14:35 | Observation (INO) ==
[2019-07-31 15:12] LABS: ABG HCO3 45.4 mmhg (22.0-26.0); ABG Oxygen Saturation 98 % (90-100); ABG PH 7.36 mmol/L (7.35-7.45); ABG PO2 109.9 mmhg (80-100); ABG TCO2 47.9 mmhg (23-27)
[2019-07-31 15:15] LABS: Allen's Test ACCEPTABLE; Oxygen 33.5 %
[2019-07-31 15:17] LABS: ABG PCO2 81.4 mmhg (35.0-45.0)
[2019-07-31 15:28] LABS: Basophils # 0.1 K/mm3 (0-0.2); Basophils % 0.5 % (0.1-2.0); Eosinophils # 0.2 K/mm3 (0.0-0.4); Hematocrit 46.9 % (37.0-47.0); Hemoglobin 15.3 g/dL (12.2-16.2); Lymphocytes # 1.9 K/mm3 (0.7-4.5); Lymphocytes % 9.7 % (10-50); Mean Corpuscular HGB Conc 32.5 g/dL (31.8-35.4); Mean Corpuscular Volume 100.8 fl (81-99); Mean Platelet Volume 7.2 fl (7.4-10.4); Monocytes # 1.8 K/mm3 (0.1-1.0); Neutrophils # 15.9 K/mm3 (1.8-7.8); Neutrophils % 79.7 % (37.0-80.0); Platelet Count 253 K/mm3 (142-424); Red Blood Count 4.66 M/mm3 (4.20-5.40); Red Cell Distribution Width 13.7 % (11.5-17.5); White Blood Count 19.9 K/mm3 (4.8-10.8)
[2019-07-31 15:36] LABS: Alanine Aminotransferase 45 U/L (12-78); Albumin Level 3.5 gm/dL (3.4-5.0); Alkaline Phosphatase 219 U/L (46-116); Anion Gap 0.3 mEq/L (5-15); Aspartate Amino Transferase 49 U/L (15-37); Bilirubin,Total 0.5 mg/dL (0.2-1.0); Blood Urea Nitrogen 16 mg/dL (7-18); Calcium 9.2 mg/dL (8.5-10.1); Chloride 87 mmol/L (98-107); Globulin 3.5 gm/dl (1.3-3.2); Glucose 96 mg/dL (74-106); Sodium 129 mmol/L (136-145)
[2019-07-31 15:43] LABS: Carbon Dioxide 45 mmol/L (21.0-32.0)
[2019-07-31 15:59] LABS: Eosinophils % 2 % (0-3); Lymphocytes % 5 % (10-50); Monocytes % 10 % (2-9); Neutrophils % 83 % (42-76); Total Cells Counted 100
[2019-07-31 16:00] LABS: Anisocytosis 1+; Macrocytosis 1+
--- NOTE | 2019-07-31 16:16 | Emergency Department Note ---
ED Disposition Clinical Impression: COPD exacerbation Disposition: Admitted as Observation Condition on Discharge: Fair Referrals: Bridger Aguilar MD [Primary Care Provider] - - Critical Care Critical Care Time: No Attestation: On 07/31/19, the high probability of a clinically significant, sudden or life threatening deterioration of the following system(s) required my full and direct attention, intervention and personal management. The time I documented below is in addition to time spent performing reported procedures but includes the following listed in this critical care notation. Medical Decision Making - [place]ali Inquiry Pt receiving controlled substance: No Vital Signs: 07/31/19 14:36 07/31/19 14:50 Temperature 97.9 F Temperature Source Oral Pulse Rate 102 H Pulse Rate [Right Brachial] 98 H Respiratory Rate 22 Blood Pressure [Right Arm] 151/88 H Blood Pressure Mean [Right Arm] 109 Blood Pressure Source [Right Arm] Automatic Cuff Blood Pressure Position [Right Arm] Sitting 02 Sat by Pulse Oximetry 91 L 94 L Oxygen Delivery Method Nasal Cannula Nasal Cannula Oxygen Flow Rate (LPM) 3 4.5 - Lab Data Lab Results 07/31/19 14:43: Specimen Source Right radial, O2 % 33.5, ABG pH 7.36, ABG pCO2 81.4 H, ABG pO2 109.9 H, ABG HCO3 45.4 H, ABG Total CO2 47.9 H, ABG O2 Saturation 98, ABG Base Excess 20.0 H, Gregg Test Acceptable 07/31/19 15:00: WBC 19.9 H, RBC 4.66, Hgb 15.3, Hct 46.9, MCV 100.8 H, MCH 32.8 H, MCHC 32.5, RDW 13.7, Plt Count 253, MPV 7.2 L, Neut % (Auto) 79.7, Lymph % (Auto) 9.7 L, [place] % (Auto) 9.0, Eos % (Auto) 1.0, Baso % (Auto) 0.5, Neut # (Auto) 15.9 H, Lymph # (Auto) 1.9, [place] # (Auto) 1.8 H, Eos # (Auto) 0.2, Baso # (Auto) 0.1, Total Counted 100, Neutrophils % (Manual) 83 H, Lymphocytes % (Manual) 5 L, Monocytes % (Manual) 10 H, Eosinophils % (Manual) 2, Platelet Estimate Normal, Anisocytosis 1+, Macrocytosis 1+ 07/31/19 15:00: Sodium 129 L, Potassium 3.3 L, Chloride 87 L, Carbon Dioxide 45 H*, Anion Gap 0.3 L, BUN 16, Creatinine 0.65, Estimated Creat Clear 58, Estimated GFR 92, Est GFR ( Amer) 112, Glucose 96, Calcium 9.2, Total Bilirubin 0.5, AST 49 H, ALT 45, Alkaline Phosphatase 219 H, Troponin I < 0.02, Total Protein 7.0, Albumin 3.5, Globulin 3.5 H, Albumin/Globulin Ratio 1.0 L 07/31/19 15:00: Lactate 0.8 07/31/19 15:00: B-Natriuretic Peptide 80 Result diagrams: 07/31/19 15:00 07/31/19 15:00 Orders (Tests/Meds): ED MEDICATIONS Generic Name Dose Route Start Last Admin Trade Name Freq PRN Reason Stop Dose Admin Azithromycin 500 mg/ Sodium 250 mls @ 250 mls/hr 07/31/19 16:30 Chloride IV 08/14/19 16:29 Q24H MILI Protocol Ceftriaxone Sodium 1 gm/ 50 mls @ 100 mls/hr 07/31/19 16:30 07/31/19 16:35 Sodium Chloride IV 08/14/19 16:29 100 mls/hr Q24H MILI Administration Protocol Sodium Chloride 3 ml 07/31/19 15:04 Sodium Chloride 3% 15ml [facility] 08/30/19 15:03 ONCE PRN INDUCE SPUTUM COLLECTION Discontinued Medications Generic Name Dose Route Start Last Admin Trade Name Freq PRN Reason Stop Dose Admin Albuterol/Ipratropium 3 ml 07/31/19 15:04 07/31/19 14:50 Duoneb 3ml [facility] 07/31/19 15:05 3 ml ONCE ONE Administration Methylprednisolone Sodium Succinate 125 mg 07/31/19 16:29 07/31/19 16:35 Solu-Medrol 125mg/2ml Vial IV 07/31/19 16:30 125 mg ONCE ONE Administration ORDERS Category Date Time Status XR chest 2V Stat Exams 07/31/19 14:43 Taken Blood Culture Stat Micro 07/31/19 15:00 Received Sputum Culture & Gram Stain Stat Micro 07/31/19 15:04 Ordered - Radiology Data #1 Image(s): Chest Image Reviewed: Yes I reviewed the patient's radiology image COPD. Right hilar mass. Right rib abnormalities, chronic. No acute change. - ECG Data Tracing #1 EKG interpreted by Alejandro Castelan MD: Rhythm: sinus Rate: 97 [place]: normal Ectopy: none Conduction: normal ST Segment Changes: none T Wave Changes: none Q Waves: none No evidence of acute ischemia or injury - Physician Consults Physician Consulted: Hafsa Aguilar Time: 16:48 Reason -: Admission Comment/Response: Agrees to admit the patient to the hospital. We discussed the patient's clinical information, including history, exam, laboratory and radiology results and ED course. Per hospital procedure, I will write temporary bridge inpatient orders on the patient. Specific orders requested by the admitting physician: Continue steroids, antibiotics, nebulizer treatments Medical Decision Narrative: After 2 nebulizer treatments has not improved in the emergency department. I discussed admission and she is agreeable. General Adult HPI - General Stated complaint: SOA Time Seen by Provider: 07/31/19 16:15 - History of Present Illness HPI narrative: Patient has history of COPD and a prior history of lung cancer which she says was cleared with radiation. Worsening shortness of breath over the past week. Just finished antibiotics and steroids within the past day to 2. Seen at the urgent treatment center and by her primary care doctor recently. Records show she was at the urgent treatment center here on 07/04 and 07/08 and at her primary care doctor on 07/11. She has not improved. Complains of a cough with clear sputum. Denies fever. Denies ch est pain. Has loss of voice. Has wheezing. She is on 3 L nasal cannula oxygen at home. She no longer smokes. She was in the emergency department here on May [address] scan of her chest that suggested increase in the right hilar mass size. She says she has seen Dr. Wilson for that and he feels it is likely from radiation and not a recurrence of cancer. She is supposed to have a repeat CT scan of her chest in [place] in September. - Related Data Home Medications Medication Instructions Recorded Confirmed Buprenorphine HCl/Naloxone HCl 1 each SL DAILY 08/20/18 07/31/19 [Suboxone 8 mg-2 mg Sl Film] Ipratropium/Albuterol Sulfate 1 puffs INHALATION NEEDED PRN 08/21/18 07/31/19 [Combivent Respimat Inh] Albuterol Sulfate [Albuterol HFA See Rx Instructions .ROUTE .COMPLEX 06/17/19 07/31/19 Inhaler] Cholecalciferol (Vitamin D3) 1,000 unit PO DAILY 06/17/19 07/31/19 [Vitamin D3 1,000 Unit Cap] Ergocalciferol (Vitamin D2) See Rx Instructions .ROUTE .COMPLEX 06/17/19 07/31/19 [Drisdol] Naproxen 500 mg PO BID 06/17/19 07/31/19 Omeprazole [Omeprazole 20mg See Rx Instructions .ROUTE .COMPLEX 06/17/19 07/31/19 Capsule] predniSONE [Deltasone 10mg tablet] 10 mg PO DAILY 06/17/19 07/31/19 fluticasone furoate 100 1 inh INHALATION DAILY 07/11/19 07/31/19 mcg-vilanterol 25 mcg/dose inhalation powder Atorvastatin Calcium [Atorvastatin 40 mg PO DAILY 07/31/19 07/31/19 40mg Tab] Cyclobenzaprine HCl See Rx Instructions .ROUTE .COMPLEX 07/31/19 07/31/19 [Cyclobenzaprine 5mg Tab] methylPREDNISolone [Medrol 4mg 4 mg PO DIRECTED 07/31/19 07/31/19 tab] Previous Rx's Medication Instructions Recorded pregabalin 75 mg capsule 75 mg PO BID #60 cap 05/27/19 ferrous sulfate 325 mg (65 mg See Rx Instructions .ROUTE 07/18/19 iron) tablet .COMPLEX #180 tab Allergies Allergy/AdvReac Type Severity Reaction Status Date / Time No Known Allergies Allergy Verified 07/11/19 10:18 [facility] History - Hepatitis A Screen Attestation statement:: This patient has been screened for Hepatitis A risk factors. I have reviewed the patient's past medical history: Yes Medical History: Reports:: Cancer (lung tumor), Carotid Stenosis, Chronic Obstructive Pulmonary Disease (COPD), Cerebrovascular Accident, Gastroesophageal Reflux Disease(GERD), Hyperlipidemia, Seizures Denies:: Diabetes Mellitus Type 1, Diabetes Mellitus Type 2, Internal Pacemaker, MRSA Other Medical History: Reports: Anemia Laterality Cases: Bilateral: Tonsillectomy, Other Other Surgeries: Yes: Hysterectomy-Total, Other. No: Pacemaker Amputation: No Fractures: No Comment: Cartoid artery - Social History Smoking Status: Current every day smoker Tobacco Type: cigarettes # Packs/Day (cigarettes): 1 #Yrs smoked (if former smoker): 45 Alcohol Intake: never Alcohol Intake Frequency:: other Substance Use Type: denies use Occupational Status: unemployed Housing: house Household Members: spouse, family Family Hx:: Cancer ROS Obtained: Yes All systems reviewed & no additional complaints - Constitutional Constitutional: Denies fever(s) - ENT Ears, Nose, Mouth, and Throat: Reports change in voice - Cardiovascular Cardiovascular: Denies chest pain - Respiratory Respiratory: Yes cough, Yes dyspnea, Yes wheezing - Gastrointestinal Gastrointestingal: Denies: abdominal pain, diarrhea, vomiting Physical Exam - General General appearance: alert, other Comment: Reading a book. Audible wheezing. Whispery voice. - Head Head exam: atraumatic, normocephalic - Eye Eye exam: Present: normal appearance, EOMI - ENT ENT exam: Present: mucous membranes moist - Neck Neck exam: Present: normal inspection, trachea midline - Chest Chest inspection: Present: normal inspection, symmetric chest wall rise - Respiratory Respiratory exam: Present: wheezes - Cardiovascular Cardiovascular exam: Present: regular rate, normal rhythm, normal heart sounds - Abdominal Exam Abdominal exam: Present: soft, normal bowel sounds. Absent: distention, tenderness - Extremities Exam Extremities exam: Present: normal inspection - Neurological Exam Neurological exam: Present: alert, oriented X3 - Psychiatric Psychiatric exam: Present: normal affect, normal mood - Skin Skin exam: Present: warm, dry
--- NOTE | 2019-07-31 21:02 | History & Physical Report ---
*Admission Date: 07/31/19 *Chief complaint: sob *History of present illness: this wf presented to ed with persistent cough and sob - she has known copd and had been compliant with meds - she has been [facility] and [facility] -however has continued sx -hx of lung cancer in past - pt was seen in the ed -fter 2 nebul izer treatments has not improved in the emergency department. I discussed admission and she is agreeable. Patient has history of COPD and a prior history of lung cancer which she says was cleared with radiation. Worsening shortness of breath over the past week. Just finished antibiotics and steroids within the past day to 2. Seen at the urgent treatment center and by her primary care doctor recently. Records show she was at the urgent treatment center here on 07/04 and 07/08 and at her primary care doctor on 07/11. She has not improved. Complains of a cough with clear sputum. Denies fever. Denies chest pain. Has loss of voice. Has wheezing. She is on 3 L nasal cannula oxygen at home. She no longer smokes. She was in the emergency department here on May [address] scan of her chest that suggested increase in the right hilar mass size. She says she has seen Dr. Wilson for that and he feels it is likely from radiation and not a recurrence of cancer. [facility] History I have reviewed the patient's past medical history: Yes Medical History: Reports:: Cancer (lung tumor), Carotid Stenosis, Chronic Obstructive Pulmonary Disease (COPD), Cerebrovascular Accident, Gastroesophageal Reflux Disease(GERD), Hyperlipidemia, Seizures Denies:: Diabetes Mellitus Type 1, Diabetes Mellitus Type 2, Internal Pacemaker, MRSA *Have you ever received a pneumonia vaccine?: No *Have you received a flu vaccine this season?: No Other Medical History: Reports: Anemia Laterality Cases: Bilateral: Tonsillectomy, Other Other Surgeries: Yes: Hysterectomy-Total, Other. No: Pacemaker Amputation: No Fractures: No - *Social History Smoking Status: Current every day smoker Tobacco Type: cigarettes # Packs/Day (cigarettes): 1 #Yrs smoked (if former smoker): 45 Alcohol Intake: never Alcohol Intake Frequency:: other Substance Use Type: painkillers *Occupational Status:: disabled Housing: house Household Members: spouse, family *Travel in the last 8 weeks: None Family Hx:: Cancer Review of Systems - Review of Systems Review of systems:: pertinent systems reviewed and negative unless documented below - Constitutional Reports fatigue - Eyes Denies change in vision - ENT Denies sore throat - *Cardiovascular Reports shortness of breath - *Respiratory Reports cough, Reports shortness of breath, Denies coughing up blood - *Gastrointestinal Denies abdominal pain - *Genitourinary Denies blood in urine - *Musculoskeletal Denies joint pain - Integumentary/Breasts Denies rash - *Neurologic Denies headache(s) - Psychiatric Reports anxiety, Denies behavioral changes Meds Home Medications Medication Instructions Recorded Confirmed Type Buprenorphine HCl/Naloxone HCl 2 each SL DAILY 08/20/18 08/01/19 History [Suboxone 8 mg-2 mg Sl Film] Ipratropium/Albuterol Sulfate 1 puffs INHALATION NEEDED PRN 08/21/18 07/31/19 History [Combivent Respimat Inh] Albuterol Sulfate [Albuterol HFA 2 puffs PO Q4HP PRN 06/17/19 08/01/19 History Inhaler] Cholecalciferol (Vitamin D3) 1,000 unit PO DAILY 06/17/19 07/31/19 History [Vitamin D3 1,000 Unit Cap] Omeprazole [Omeprazole 20mg 20 mg PO DAILY 06/17/19 08/01/19 History Capsule] fluticasone furoate 100 1 inh INHALATION DAILY 07/11/19 07/31/19 History mcg-vilanterol 25 mcg/dose inhalation powder Atorvastatin Calcium [Lipitor 40mg 40 mg PO HS 07/31/19 07/31/19 History Tablet] Cholecalciferol (Vitamin D3) 5,000 unit PO WEEKLY 07/31/19 07/31/19 History [Vitamin D3] Pregabalin [Lyrica 75mg Cap] 75 mg PO BID 07/31/19 07/31/19 History Azithromycin 250 mg PO DAILY 08/01/19 08/01/19 History Ferrous Sulfate 325 mg PO DAILY 08/01/19 08/01/19 History predniSONE [Deltasone 10mg tablet] 10 mg PO DIRECTED 08/01/19 08/01/19 History Allergies Allergy/AdvReac Type Severity Reaction Status Date / Time No Known Allergies Allergy Verified 07/11/19 10:18 Exam Vital signs and Labs for Last 24 Hours: Temp Pulse Resp BP Pulse Ox 98.6 F 81 17 146/73 H 92 L 07/31/19 20:00 07/31/19 20:30 07/31/19 20:00 07/31/19 20:00 07/31/19 20:00 Laboratory Results - last 24 hr 07/31/19 14:43: Specimen Source Right radial, O2 % 33.5, ABG pH 7.36, ABG pCO2 81.4 H, ABG pO2 109.9 H, ABG HCO3 45.4 H, ABG Total CO2 47.9 H, ABG O2 Saturation 98, ABG Base Excess 20.0 H, Gregg Test Acceptable 07/31/19 15:00: WBC 19.9 H, RBC 4.66, Hgb 15.3, Hct 46.9, MCV 100.8 H, MCH 32.8 H, MCHC 32.5, RDW 13.7, Plt Count 253, MPV 7.2 L, Neut % (Auto) 79.7, Lymph % ( Auto) 9.7 L, [place] % (Auto) 9.0, Eos % (Auto) 1.0, Baso % (Auto) 0.5, Neut # (Auto) 15.9 H, Lymph # (Auto) 1.9, [place] # (Auto) 1.8 H, Eos # (Auto) 0.2, Baso # (Auto) 0.1, Total Counted 100, Neutrophils % (Manual) 83 H, Lymphocytes % (Manual) 5 L, Monocytes % (Manual) 10 H, Eosinophils % (Manual) 2, Platelet Estimate Normal, Anisocytosis 1+, Macrocytosis 1+ 07/31/19 15:00: Sodium 129 L, Potassium 3.3 L, Chloride 87 L, Carbon Dioxide 45 H*, Anion Gap 0.3 L, BUN 16, Creatinine 0.65, Estimated Creat Clear 58, Estimated GFR 92, Est GFR ( Amer) 112, Glucose 96, Calcium 9.2, Total Bilirubin 0.5, AST 49 H, ALT 45, Alkaline Phosphatase 219 H, Troponin I < 0.02, Total Protein 7.0, Albumin 3.5, Globulin 3.5 H, Albumin/Globulin Ratio 1.0 L 07/31/19 15:00: Lactate 0.8 07/31/19 15:00: B-Natriuretic Peptide 80 I & O for Last 24 hours: Intake & Output 07/29/19 07/30/19 07/31/19 08/01/19 11:59 11:59 11:59 11:59 Weight 116 lb 13.52 oz Microbiology Reports for the Last 24 Hours: Microbiology 07/31/19 19:30 Sputum - Expectorated Sputum Gram Stain - Final - Constitutional no acute distress, chronically ill appearing - *Routine HEENT Exam Head: Present: normocephalic Eye: Present: EOMI, PERRL ENT: Present: mucous membranes dry - *Routine Neck Exam Present: supple. Absent: JVD - *Routine Respiratory Exam Present: decreased breath sounds, wheezes - *Routine Cardiovascular Exam Present: RRR, murmur, S4 - *Routine Abdominal Exam Present: soft - *Routine Extremities Exam Present: edema. Absent: calf tenderness - *Routine Skin Exam Present: intact - *Routine Neurological Exam Present: alert, oriented X3, CN II-XII intact - Routine Psychiatric Exam Present: normal affect Assessment and Plan (1) COPD exacerbation Current visit: Yes Status: Acute Category: Medical Code(s): J44.1 - Chronic obstructive pulmonary disease with (acute) exacerbation (2) Respiratory failure Current visit: Yes Status: Acute Qualifiers: Chronicity: acute on chronic Respiratory failure complication: hypercapnia Qualified Code(s): J96.22 - Acute and chronic respiratory failure with hypercapnia Category: Medical Code(s): J96.90 - Respiratory failure, unspecified, unspecified whether with hypoxia or hypercapnia (3) Tobacco use Current visit: No Status: Acute Category: Medical Code(s): Z72.0 - Tobacco use
--- NOTE | 2019-07-31 21:03 | Electrocardiograph Report ---
APPROVED REPORT Exam: Resting ECG HR:97 bpm ECG Measurements Heart Rate 97 AXES OK 128 P 69 QRSd 76 QRS 77 QT 340 T62 QTc 431 <Conclusion> Normal sinus rhythm Biatrial enlargement Abnormal ECG Electronically signed by : Keegan Leroy, 07/31/2019 21:03:12
--- NOTE | 2019-08-01 07:47 | Pharmacy Consult Notes ---
[facility] Pharmacy VTE Monitoring - Patient Demographics Admission date: 07/31/19 Report Date: 08/01/19 Time: 07:47 Allergies/Adverse Reactions: Patient Allergies No Known Allergies Allergy (Verified 07/11/19 10:18) Height: 1.68 m Weight: 53 kg Patient Problems: Current Active Problems COPD exacerbation (Acute) - VTE Risk Labs: VTE Related Lab Results Hgb 15.3 g/dL (12.2-16.2) 07/31/19 15:00 Hct 46.9 % (37.0-47.0) 07/31/19 15:00 Plt Count 253 K/mm3 (142-424) 07/31/19 15:00 BUN 16 mg/dL (7-18) 07/31/19 15:00 Creatinine 0.65 mg/dL (0.55-1.02) 07/31/19 15:00 Estimated Creat Clear 58 mL/min (50-200) 07/31/19 15:00 - Prophylaxis VTE Prophylaxis Ordered?: Yes Types of VTE Prophylaxis: TEDS Knee High Location of Applied Device: Bilateral Lower Extremeties - VTE Diagnosis Confirmed Treatment or plan recommended: Continue Current Treatment
[2019-08-01 12:54] LABS: Basophils % 0.2 % (0.1-2.0); Eosinophils % 0.2 % (0.1-12.0); Hematocrit 46.6 % (37.0-47.0); Hemoglobin 15.1 g/dL (12.2-16.2); Lymphocytes # 0.4 K/mm3 (0.7-4.5); Lymphocytes % 2.1 % (10-50); Mean Corpuscular HGB Conc 32.4 g/dL (31.8-35.4); Mean Corpuscular Volume 102.8 fl (81-99); Mean Platelet Volume 7.8 fl (7.4-10.4); Neutrophils # 16.9 K/mm3 (1.8-7.8); Neutrophils % 94.6 % (37.0-80.0); Platelet Count 253 K/mm3 (142-424); Red Blood Count 4.53 M/mm3 (4.20-5.40); Red Cell Distribution Width 13.4 % (11.5-17.5); White Blood Count 17.9 K/mm3 (4.8-10.8)
[2019-08-01 12:55] LABS: Monocytes # 0.5 K/mm3 (0.1-1.0)
[2019-08-01 13:04] LABS: Anion Gap 6.6 mEq/L (5-15); Calcium 9.1 mg/dL (8.5-10.1)
[2019-08-01 13:37] LABS: Anisocytosis 1+; Lymphocytes % 2 % (10-50); Macrocytosis 1+; Monocytes % 2 % (2-9); Neutrophils % 96 % (42-76); Stomatocytes 1+; Total Cells Counted 100
--- NOTE | 2019-08-01 14:14 | Progress Note ---
Internal Medicine - PN: Subj *Date: 08/02/19 *Time: 06:45 Interval history: doing better but still with wheezing Exam Vital signs and Labs for Last 24 Hours: Temp Pulse Resp BP Pulse Ox 97.6 F 91 H 24 179/86 H 92 L 08/01/19 08:00 08/01/19 10:53 08/01/19 08:00 08/01/19 08:00 08/01/19 08:00 Laboratory Results - last 24 hr 07/31/19 14:43: Specimen Source Right radial, O2 % 33.5, ABG pH 7.36, ABG pCO2 81.4 H, ABG pO2 109.9 H, ABG HCO3 45.4 H, ABG Total CO2 47.9 H, ABG O2 Saturation 98, ABG Base Excess 20.0 H, Gregg Test Acceptable 07/31/19 15:00: WBC 19.9 H, RBC 4.66, Hgb 15.3, Hct 46.9, MCV 100.8 H, MCH 32.8 H, MCHC 32.5, RDW 13.7, Plt Count 253, MPV 7.2 L, Neut % (Auto) 79.7, Lymph % (Auto) 9.7 L, [place] % (Auto) 9.0, Eos % (Auto) 1.0, Baso % (Auto) 0.5, Neut # (Auto) 15.9 H, Lymph # (Auto) 1.9, [place] # (Auto) 1.8 H, Eos # (Auto) 0.2, Baso # (Auto) 0.1, Total Counted 100, Neutrophils % (Manual) 83 H, Lymphocytes % (Manual) 5 L, Monocytes % (Manual) 10 H, Eosinophils % (Manual) 2, Platelet Estimate Normal, Anisocytosis 1+, Macrocytosis 1+ 07/31/19 15:00: Sodium 129 L, Potassium 3.3 L, Chloride 87 L, Carbon Dioxide 45 H*, Anion Gap 0.3 L, BUN 16, Creatinine 0.65, Estimated Creat Clear 58, Estimated GFR 92, Est GFR ( Amer) 112, Glucose 96, Calcium 9.2, Total Bilirubin 0.5, AST 49 H, ALT 45, Alkaline Phosphatase 219 H, Troponin I < 0.02, Total Protein 7.0, Albumin 3.5, Globulin 3.5 H, Albumin/Globulin Ratio 1.0 L 07/31/19 15:00: Lactate 0.8 07/31/19 15:00: B-Natriuretic Peptide 80 08/01/19 12:35: WBC 17.9 H, RBC 4.53, Hgb 15.1, Hct 46.6, MCV 102.8 H, MCH 33.3 H, MCHC 32.4, RDW 13.4, Plt Count 253, MPV 7.8, Neut % (Auto) 94.6 H, Lymph % (A uto) 2.1 L, [place] % (Auto) 3.0, Eos % (Auto) 0.2, Baso % (Auto) 0.2, Neut # (Auto) 16.9 H, Lymph # (Auto) 0.4 L, [place] # (Auto) 0.5, Eos # (Auto) 0.0, Baso # (Auto) 0.0, Total Counted 100, Neutrophils % (Manual) 96 H, Lymphocytes % (Manual) 2 L, Monocytes % (Manual) 2, Platelet Estimate Normal, Anisocytosis 1+, Macrocytosis 1+, Stomatocytes 1+ 08/01/19 12:35: Sodium 130 L, Potassium 3.6, Chloride 85 L, Carbon Dioxide 42 H* , Anion Gap 6.6, BUN 15, Creatinine 0.61, Estimated Creat Clear 49, Estimated GFR 99, Est GFR ( Amer) 120, Glucose 145 H D, Calcium 9.1 I & O for Last 24 hours: Intake & Output 07/30/19 07/31/19 08/01/19 08/02/19 11:59 11:59 11:59 11:59 Intake Total 240 / 240 Balance 240 / 240 Weight 116 lb 13.52 oz Microbiology Reports for the Last 24 Hours: Microbiology 07/31/19 19:30 Sputum - Expectorated Sputum Gram Stain - Final 07/31/19 19:30 Sputum - Expectorated Sputum Sputum Culture - Preliminary - Constitutional no acute distress - *Routine HEENT Exam Head: Present: normocephalic Eye: Present: EOMI, PERRL ENT: Present: mucous membranes dry - *Routine Neck Exam Present: supple. Absent: JVD - *Routine Respiratory Exam Present: wheezes - *Routine Cardiovascular Exam Present: RRR, murmur - *Routine Abdominal Exam Present: soft - *Routine Extremities Exam Absent: calf tenderness - *Routine Skin Exam Present: intact - *Routine Neurological Exam Present: alert, CN II-XII intact - Routine Psychiatric Exam Present: normal affect
[2019-08-02 08:12] LABS: Basophils % 0.1 % (0.1-2.0); Eosinophils % 0.1 % (0.1-12.0); Lymphocytes # 0.4 K/mm3 (0.7-4.5); Lymphocytes % 1.6 % (10-50); Mean Corpuscular HGB Conc 31.9 g/dL (31.8-35.4); Mean Corpuscular Volume 101.7 fl (81-99); Mean Platelet Volume 7.7 fl (7.4-10.4); Monocytes # 1.1 K/mm3 (0.1-1.0); Monocytes % 4.4 % (1.7-9.3); Neutrophils # 23.5 K/mm3 (1.8-7.8); Neutrophils % 93.8 % (37.0-80.0); Platelet Count 262 K/mm3 (142-424); Red Blood Count 4.33 M/mm3 (4.20-5.40); Red Cell Distribution Width 13.8 % (11.5-17.5); White Blood Count 25.1 K/mm3 (4.8-10.8)
[2019-08-02 08:13] LABS: ABG Base Excess 16.8 mmol/L (-2.4-2.3); ABG HCO3 41.8 mmhg (22.0-26.0); ABG Oxygen Saturation 92 % (90-100); ABG PH 7.39 mmol/L (7.35-7.45)
[2019-08-02 08:16] LABS: Oxygen 3LPM %
[2019-08-02 08:44] LABS: Anion Gap 5.5 mEq/L (5-15); Calcium 8.5 mg/dL (8.5-10.1)
--- NOTE | 2019-08-02 08:55 | Progress Note ---
Internal Medicine - PN: Subj *Date: 08/02/19 *Time: 08:50 Interval history: Patient sitting up on side of the bed writing down notes. Patient states she is short of breath.increase effort in breathing Exam Vital signs and Labs for Last 24 Hours: Temp Pulse Resp BP Pulse Ox 97.8 F 109 H 20 148/75 H 90 L 08/02/19 07:33 08/02/19 08:00 08/02/19 07:33 08/02/19 07:33 08/02/19 08:00 Laboratory Results - last 24 hr 08/01/19 12:35: WBC 17.9 H, RBC 4.53, Hgb 15.1, Hct 46.6, MCV 102.8 H, MCH 33.3 H, MCHC 32.4, RDW 13.4, Plt Count 253, MPV 7.8, Neut % (Auto) 94.6 H, Lymph % (Auto) 2.1 L, Frederick % (Auto) 3.0, Eos % (Auto) 0.2, Baso % (Auto) 0.2, Neut # (Auto) 16.9 H, Lymph # (Auto) 0.4 L, Frederick # (Auto) 0.5, Eos # (Auto) 0.0, Baso # (Auto) 0.0, Total Counted 100, Neutrophils % (Manual) 96 H, Lymphocytes % (Manual) 2 L, Monocytes % (Manual) 2, Platelet Estimate Normal, Anisocytosis 1+, Macrocytosis 1+, Stomatocytes 1+ 08/01/19 12:35: Sodium 130 L, Potassium 3.6, Chloride 85 L, Carbon Dioxide 42 H* , Anion Gap 6.6, BUN 15, Creatinine 0.61, Estimated Creat Clear 49, Estimated GFR 99, Est GFR ( Amer) 120, Glucose 145 H D, Calcium 9.1 08/02/19 06:47: Specimen Source L brachial, O2 % 3lpm, ABG pH 7.39, ABG pCO2 71.0 H, ABG pO2 65.0 L, ABG HCO3 41.8 H, ABG Total CO2 44.0 H, ABG O2 Saturation 92, ABG Base Excess 16.8 H 08/02/19 07:49: WBC 25.1 H* D, RBC 4.33, Hgb 14.0, Hct 44.0, MCV 101.7 H, MCH 32.4 H, MCHC 31.9, RDW 13.8, Plt Count 262, MPV 7.7, Neut % (Auto) 93.8 H, Lymph % (Auto) 1.6 L, Frederick % (Auto) 4.4, Eos % (Auto) 0.1, Baso % (Auto) 0.1, Neut # (Auto) 23.5 H, Lymph # (Auto) 0.4 L, Frederick # (Auto) 1.1 H, Eos # (Auto) 0.0, Baso # (Auto) 0.0 08/02/19 07:49: Sodium 130 L, Potassium 3.5, Chloride 88 L, Carbon Dioxide 40 H, Anion Gap 5.5, BUN 14, Creatinine 0.58, Estimated Creat Clear 49, Estimated GFR 105, Est GFR ( Amer) 127, Glucose 177 H D, Calcium 8.5 I & O for Last 24 hours: Intake & Output 07/30/19 07/31/19 08/01/19 08/02/19 11:59 11:59 11:59 11:59 Intake Total 240 / 240 840 / 840 Balance 240 / 240 840 / 840 Weight 116 lb 13.52 oz 116 lb 13.52 oz Microbiology Reports for the Last 24 Hours: Microbiology 07/31/19 19:30 Sputum - Expectorated Sputum Gram Stain - Final 07/31/19 19:30 Sputum - Expectorated Sputum Sputum Culture - Preliminary - Constitutional no acute distress - *Routine HEENT Exam Head: Present: normocephalic Eye: Present: PERRL ENT: Present: mucous membranes moist - *Routine Neck Exam Present: supple. Absent: lymphadenopathy - *Routine Respiratory Exam Present: rhonchi, wheezes, diminished air movement - *Routine Cardiovascular Exam Present: RRR - *Routine Abdominal Exam Present: soft, normoactive bowel sounds. Absent: tenderness - *Routine Extremities Exam Present: full ROM. Absent: cyanosis, clubbing, edema - *Routine Skin Exam Present: intact, warm. Absent: rash - *Routine Neurological Exam Present: alert, oriented X3 Assessment and Plan (1) COPD exacerbation Current visit: Yes Status: Acute Category: Medical Code(s): J44.1 - Chronic obstructive pulmonary disease with (acute) exacerbation (2) Chronic pain disorder Current visit: No Status: Acute Category: Medical Code(s): G89.4 - Chronic pain syndrome (3) Chronic respiratory failure Current visit: No Status: Acute Qualifiers: Respiratory failure complication: hypoxia Qualified Code(s): J96.11 - Chronic respiratory failure with hypoxia Category: Medical Code(s): J96.10 - Chronic respiratory failure, unspecified whether with hypoxia or hypercapnia (4) History of lung cancer Current visit: No Status: Acute Category: Medical Code(s): Z85.118 - Personal history of other malignant neoplasm of bronchus and lung (5) Tobacco dependence syndrome Current visit: No Status: Acute Category: Medical Code(s): F17.200 - Nicotine dependence, unspecified, uncomplicated (6) Tobacco use Current visit: No Status: Acute Category: Medical Code(s): Z72.0 - Tobacco use - Assessment and plan all Dx Assessment and Plan for all problems:: Rounded with Dr. Aguilar all orders per Lauren wait cx results
[2019-08-02 09:04] LABS: Anisocytosis 1+; Lymphocytes % 1 % (10-50); Macrocytosis 1+; Monocytes % 3 % (2-9); Neutrophils % 96 % (42-76); Total Cells Counted 100
[2019-08-02 09:05] LABS: Stomatocytes 1+
[2019-08-03 07:16] LABS: Basophils # 0.1 K/mm3 (0-0.2); Basophils % 0.4 % (0.1-2.0); Eosinophils # 0.1 K/mm3 (0.0-0.4); Eosinophils % 0.3 % (0.1-12.0); Hematocrit 48.2 % (37.0-47.0); Hemoglobin 15.3 g/dL (12.2-16.2); Lymphocytes # 0.2 K/mm3 (0.7-4.5); Lymphocytes % 0.9 % (10-50); Mean Corpuscular HGB Conc 31.8 g/dL (31.8-35.4); Mean Corpuscular Volume 103.4 fl (81-99); Mean Platelet Volume 8.2 fl (7.4-10.4); Monocytes # 0.9 K/mm3 (0.1-1.0); Monocytes % 3.6 % (1.7-9.3); Neutrophils # 23.7 K/mm3 (1.8-7.8); Neutrophils % 94.8 % (37.0-80.0); Platelet Count 241 K/mm3 (142-424); Red Blood Count 4.66 M/mm3 (4.20-5.40); Red Cell Distribution Width 13.9 % (11.5-17.5)
[2019-08-03 07:18] LABS: Anion Gap 5.3 mEq/L (5-15); Calcium 8.5 mg/dL (8.5-10.1)
[2019-08-03 07:20] LABS: White Blood Count 25.3 K/mm3 (4.8-10.8)
[2019-08-03 09:27] VITALS: BP 121/74
[2019-08-03 10:38] LABS: Anisocytosis 1+; Macrocytosis 1+; Monocytes % 7 % (2-9); Neutrophils % 89 % (42-76); Total Cells Counted 100
--- NOTE | 2019-08-03 13:21 | Discharge Summary ---
General - General Admission date:: 07/31/19 Discharge date: 08/03/19 HPI HPI: this wf presented to ed with persistent cough and sob - she has known copd and had been compliant with meds - she has been seen in [facility] and pcp -however has continued sx -hx of lung cancer in past - pt was seen in the ed -fter 2 nebulizer treatments has not improved in the emergency department. I discussed admission and she is agreeable. Patient has history of COPD and a prior history of lung cancer which she says was cleared with radiation. Worsening shortness of breath over the past week. Just finished antibiotics and steroids within the past day to 2. Seen at the urgent treatment center and by her primary care doctor recently. Records show she was at the urgent treatment center here on 07/04 and 07/08 and at her primary care doctor on 07/11. She has not improved. Complains of a cough with clear sputum. Denies fever. Denies chest pain. Has loss of voice. Has wheezing. She is on 3 L nasal cannula oxygen at home. She no longer smokes. She was in the emergency department here on May [address] scan of her chest that suggested increase in the right hilar mass size. She says she has seen Dr. Wilson for that and he feels it is likely from radiation and not a recurrence of cancer. Hospital Course Hospital Course: ct chest:IMPRESSION: 1. Overall no significant change in the right perihilar mass with COPD/emphysema and fibrotic changes. 2. There is a 4 mm nodule in the left lower lobe. This is nonspecific and too small to categorize. Six-month follow-up suggested. chest x ray:IMPRESSION: Nothing definitely acute Stable region of density right mid lung, with associated prominence of the right torres.-No appreciable change here since May [address] chest. Certainly no no appreciable change on plain film.. Low threshold for follow-up CT recommended if patient remains symptomatic and particularly in view of the history of right bronchogenic carcinoma. The Stable old right 5th and 6 rib regularities/fractures; with stable pleural thickening beneath this area unchanged since May 2019 While admission patient received IV steroids and antibiotics for her COPD ex. patient today states she is feeling better and breathing easier with less wheezing. Patient will be discharged home with a continuing of antibiotics and steroids. Patient will be changed from Brio and Combivent to trilogy. A consult to new assistant education director as outpatient. Patient's vital signs within normal limits. Patient is to follow back up with her oncologist in [place](patient states she has an appointment scheduled). Patient sputum and blood cultures were negative. Objective Vital signs: Temp Pulse Resp BP Pulse Ox 98.2 F 99 H 19 121/74 90 L 08/03/19 08:00 08/03/19 12:51 08/03/19 08:00 08/03/19 08:00 08/03/19 08:00 no acute distress - *Routine HEENT Exam Head: Present: normocephalic, scalp tenderness ENT: Present: mucous membranes moist - *Routine Neck Exam Present: full ROM - *Routine Respiratory Exam Present: wheezes - *Routine Cardiovascular Exam Present: RRR - *Routine Abdominal Exam Present: soft - *Routine Extremities Exam Present: full ROM - *Routine Skin Exam Present: intact - *Routine Neurological Exam Present: alert, oriented X3 - Routine Psychiatric Exam Present: normal affect Results Labs on day of discharge: Labs from last 24 hours 08/03/19 08/03/19 06:48 06:48 WBC 25.3 H* RBC 4.66 Hgb 15.3 Hct 48.2 H MCV 103.4 H MCH 32.9 H MCHC 31.8 RDW 13.9 Plt Count 241 MPV 8.2 Neut % (Auto) 94.8 H Lymph % (Auto) 0.9 L Nicholas % (Auto) 3.6 Eos % (Auto) 0.3 Baso % (Auto) 0.4 Neut # (Auto) 23.7 H Lymph # (Auto) 0.2 L Nicholas # (Auto) 0.9 Eos # (Auto) 0.1 Baso # (Auto) 0.1 Total Counted 100 Neutrophils % (Manual) 89 H Band Neutrophils % 3.0 Monocytes % (Manual) 7 Metamyelocytes % 1.0 Platelet Estimate Normal Anisocytosis 1+ Macrocytosis 1+ Sodium 125 L Potassium 4.3 D Chloride 85 L Carbon Dioxide 39 H Anion Gap 5.3 BUN 17 Creatinine 0.61 Estimated Creat Clear 49 Estimated GFR 99 Est GFR ( Amer) 120 Glucose 203 H Calcium 8.5 Preliminary micro results at discharge 07/31/19 15:00 Blood Culture - Preliminary Blood NO GROWTH AFTER 48 HOURS 07/31/19 15:00 Blood Culture - Preliminary Blood NO GROWTH AFTER 48 HOURS - Additional Comments Lauern chi earlier DS: Diagnosis - Discharge Diagnosis (1) COPD exacerbation Status: Acute (2) Chronic pain disorder Status: Acute (3) Chronic respiratory failure Status: Acute (4) History of lung cancer Status: Acute (5) Tobacco dependence syndrome Status: Acute (6) Tobacco use Status: Acute Discharge Plan - Patient Discharge Instructions ACTIVITY: Continue current activity DIET: continue same diet Patient Instructions: DI for Chronic Obstructive Pulmonary Disease - Follow up Plan Follow up with: Makayla Almazan APRN [Nurse Practitioner] - 08/09/19 10:00 am Disposition: Home, Self-Fci Medications: Home Medications Medication Instructions Recorded Confirmed Type Buprenorphine HCl/Naloxone HCl 2 each SL DAILY 08/20/18 08/01/19 History [Suboxone 8 mg-2 mg Sl Film] Albuterol Sulfate [Albuterol HFA 2 puffs PO Q4HP PRN 06/17/19 08/01/19 History Inhaler] Cholecalciferol (Vitamin D3) 1,000 unit PO DAILY 06/17/19 07/31/19 History [Vitamin D3 1,000 Unit Cap] Omeprazole [Omeprazole 20mg 20 mg PO DAILY 06/17/19 08/01/19 History Capsule] Atorvastatin Calcium [Lipitor 40mg 40 mg PO HS 07/31/19 07/31/19 History Tablet] Cholecalciferol (Vitamin D3) 5,000 unit PO WEEKLY 07/31/19 07/31/19 History [Vitamin D3] Pregabalin [Lyrica 75mg Cap] 75 mg PO BID 07/31/19 07/31/19 History Ferrous Sulfate 325 mg PO DAILY 08/01/19 08/01/19 History Azithromycin 250 mg PO DAILY 3 Days #3 tab 08/03/19 Rx Azithromycin [Zithromax 250mg 500 mg PO 1100 tab 08/03/19 Rx tab] Fluticasone/Umeclidin/Vilanter 1 each IH DAILY 30 Days #1 08/03/19 Rx [Trelegy Ellipta 100-62.5-25] [facility] cephALEXin [Keflex 500mg Cap] 500 mg PO BID 10 Days #20 cap 08/03/19 Rx predniSONE [Deltasone 10mg tablet] 10 mg PO DIRECTED 9 Days #21 tab 08/03/19 Rx Prescriptions/Medication Reconciliation: New Fluticasone/Umeclidin/Vilanter [Trelegy Ellipta 100-62.5-25] 1 each IH DAILY 30 Days #1 [facility] Azithromycin [Zithromax 250mg tab] 500 mg PO 1100 tab cephALEXin [Keflex 500mg Cap] 500 mg PO BID 10 Days #20 cap Continued Omeprazole [Omeprazole 20mg Capsule] 20 mg PO DAILY Cholecalciferol (Vitamin D3) [Vitamin D3 1,000 Unit Cap] 1,000 unit PO DAILY Albuterol Sulfate [Albuterol HFA Inhaler] 2 puffs PO Q4HP PRN PRN Reason: Shortness Of Breath Or Wheezing Pregabalin [Lyrica 75mg Cap] 75 mg PO BID Atorvastatin Calcium [Lipitor 40mg Tablet] 40 mg PO HS Azithromycin 250 mg PO DAILY 3 Days #3 tab predniSONE [Deltasone 10mg tablet] 10 mg PO DIRECTED 9 Days #21 tab Buprenorphine HCl/Naloxone HCl [Suboxone 8 mg-2 mg Sl Film] 2 each SL DAILY Cholecalciferol (Vitamin D3) [Vitamin D3] 5,000 unit PO WEEKLY Ferrous Sulfate 325 mg PO DAILY Discontinued fluticasone furoate 100 mcg-vilanterol 25 mcg/dose inhalation powder 1 inh INHALATION DAILY Ipratropium/Albuterol Sulfate [Combivent Respimat Inh] 1 puffs INHALATION NEEDED PRN PRN Reason: Shortness Of Breath Or Wheezing - Problem Reconciliation Problems Reviewed?: Yes
== END 2019-08-03 14:47 | disposition home or self-care (01) ==
LOC: ER 14:35 → 2ND 14:35
PROVIDERS: ADMIT Internal Medicine Adolescent Medicine; ATTEND Emergency Medicine
CPT/HCPCS: 36415; 71020; 71046; 71250; 80048; 80053; 82803; 83605; 83880; 84484; 85007; 85025; 87040; 87070; 87205; 93005; 94640; 94760; 94761; 96365; 96367; 96375; 99284; G0378; J0456; J0571

== ENCOUNTER 2019-09-11 21:38 | Observation (INO) ==
--- NOTE | 2019-09-11 22:10 | Emergency Department Note ---
ED Disposition Clinical Impression: COPD exacerbation Acute and chronic respiratory failure Qualifiers: Respiratory failure complication: hypoxia and hypercapnia Qualified Code(s): J96.21 - Acute and chronic respiratory failure with hypoxia; J96.22 - Acute and chronic respiratory failure with hypercapnia Sepsis Qualifiers: Sepsis type: sepsis due to unspecified organism Sepsis acute organ dysfunction status: with acute organ dysfunction Severe sepsis acute organ dysfunction type: acute respiratory failure Acute respiratory failure type: unspecified Severe sepsis shock status: without septic shock Qualified Code(s): A41.9 - Sepsis, unspecified organism; R65.20 - Severe sepsis without septic shock; J96.00 - Acute respiratory failure, unspecified whether with hypoxia or hypercapnia Disposition: Admitted as Observation Condition on Discharge: [facility] - Critical Care Critical Care Time: No Attestation: On 09/11/19, the high probability of a clinically significant, sudden or life threatening deterioration of the following system(s) required my full and direct attention, intervention and personal management. The time I documented below is in addition to time spent performing reported procedures but includes the following listed in this critical care notation. Medical Decision Making - Neftali Inquiry Pt receiving controlled substance: No Vital Signs: 09/11/19 22:09 09/11/19 23:06 09/12/19 00:33 Temperature 98 F 98 F Temperature Source Oral Oral Pulse Rate 84 84 Pulse Rate [Right Brachial] 102 H Respiratory Rate 20 18 Blood Pressure 142/84 H Blood Pressure [Right Arm] 140/85 Blood Pressure Mean [Right Arm] 103 Blood Pressure Source Automatic Cuff Blood Pressure Source [Right Arm] Automatic Cuff Blood Pressure Position Standing Blood Pressure Position [Right Arm] Sitting 02 Sat by Pulse Oximetry 87 L Oxygen Delivery Method Nasal Cannula Room Air Oxygen Flow Rate (LPM) 3 09/12/19 00:44 Temperature Temperature Source Pulse Rate 83 Pulse Rate [Right Brachial] Respiratory Rate Blood Pressure Blood Pressure [Right Arm] Blood Pressure Mean [Right Arm] Blood Pressure Source Blood Pressure Source [Right Arm] Blood Pressure Position Blood Pressure Position [Right Arm] 02 Sat by Pulse Oximetry Oxygen Delivery Method Oxygen Flow Rate (LPM) - Lab Data Lab Results 09/11/19 22:40: Specimen Source R/r, O2 % 4, ABG pH 7.31 L, ABG pCO2 68.6 H, ABG pO2 66.4 L, ABG HCO3 33.5 H, ABG Total CO2 35.6 H, ABG O2 Saturation 92, ABG Base Excess 7.2 H, Gregg Test Y 09/11/19 23:20: WBC 13.8 H, RBC 4.43, Hgb 13.9, Hct 45.0, MCV 101.5 H, MCH 31.4 H, MCHC 30.9 L, RDW 14.9, Plt Count 236, MPV 7.3 L, Neut % (Auto) 69.9, Lymph % (Auto) 17.6, Towns % (Auto) 10.8 H, Eos % (Auto) 1.1, Baso % (Auto) 0.7, Neut # (Auto) 9.7 H, Lymph # (Auto) 2.4, Towns # (Auto) 1.5 H, Eos # (Auto) 0.2, Baso # (Auto) 0.1 09/11/19 23:20: Sodium 134 L, Potassium 4.1, Chloride 92 L, Carbon Dioxide 36 H, Anion Gap 10.1, BUN 11, Creatinine 0.60, Estimated Creat Clear 50, Estimated GFR 101, Est GFR ( Amer) 123, Glucose 83, Calcium 8.6, Total Bilirubin 0.3, AST 21, ALT 31, Alkaline Phosphatase 204 H, Troponin I 0.03, Total Protein 6.2 L , Albumin 3.5, Globulin 2.7, Albumin/Globulin Ratio 1.3 09/11/19 23:20: Lactate 0.5 Result diagrams: 09/11/19 23:20 09/11/19 23:20 Orders (Tests/Meds): ED MEDICATIONS Generic Name Dose Route Start Last Admin Trade Name Melloq PRN Reason Stop Dose Admin Acetaminophen 650 mg 09/12/19 00:41 Acetaminophen 325mg Tab PO 10/12/19 00:40 Q4HP PRN As Needed for Fever or Pain Albuterol/Ipratropium 3 ml 09/12/19 06:00 Duoneb 3ml Neb IH 10/12/19 05:59 QIDRT [facility] Atorvastatin Calcium 40 mg 09/12/19 21:00 Lipitor 40mg Tablet PO 10/12/19 20:59 HS MILI Azithromycin 500 mg/ Sodium 250 mls @ 250 mls/hr 09/12/19 23:30 Chloride IV 09/25/19 23:29 Q24H [facility] Protocol Ceftriaxone Sodium 1 gm/ 50 mls @ 100 mls/hr 09/12/19 23:30 Sodium Chloride IV 09/25/19 23:29 Q24H [facility] Protocol Sodium Chloride 1,000 mls @ 50 mls/hr 09/12/19 00:45 Sod Chlor 0.9% 1000ml Bag IV 10/12/19 00:44 .Q20H [facility] Methylprednisolone Sodium Succinate 80 mg 09/12/19 00:45 Solu-Medrol 125mg/2ml Vial IV 10/12/19 00:44 Q8H [facility] Sodium Chloride 10 ml 09/12/19 00:41 Saline Flush 10ml Syringe IV 10/12/19 00:40 NEEDED PRN Maintain IV Site Discontinued Medications Generic Name Dose Route Start Last Admin Trade Name Freq PRN Reason Stop Dose Admin Albuterol/Ipratropium 3 ml 09/11/19 22:17 09/11/19 23:06 Duoneb 3ml Neb 09/11/19 22:18 3 ml ONCE ONE Administration Albuterol/Ipratropium 3 ml 09/12/19 00:28 09/12/19 00:42 Duoneb 3ml Neb 09/12/19 00:29 3 ml ONCE ONE Administration Ceftriaxone Sodium 1 gm/ 50 mls @ 100 mls/hr 09/11/19 23:30 09/11/19 23:42 Sodium Chloride IV 09/25/19 23:29 100 mls/hr Q24H [facility] Administration Protocol Azithromycin 500 mg/ Sodium 250 mls @ 250 mls/hr 09/11/19 23:30 09/11/19 23:42 Chloride IV 09/25/19 23:29 250 mls/hr Q24H [facility] Administration Protocol Methylprednisolone Sodium Succinate 125 mg 09/11/19 22:49 09/11/19 23:03 Solu-Medrol 125mg/2ml Vial IV 09/11/19 22:50 125 mg ONCE ONE Administration Sodium Chloride 3 ml 09/11/19 22:26 Sodium Chloride 3% 15ml [facility] 10/11/19 22:25 ONCE PRN INDUCE SPUTUM COLLECTION ORDERS Category Date Time Status CXR 2 view (NOT portable) [XR chest 2V] Stat Exams 09/11/19 22:18 Taken Blood Culture Stat Micro 09/11/19 23:20 Received Sputum Culture & Gram Stain Stat Micro 12/29/19 22:26 Ordered 12-lead EKG Request [ECG Request by /Kira] Stat Y 09/11/19 22:19 Stop Req - Radiology Data #1 Image(s): Chest Image Reviewed: Yes I reviewed the patient's radiology image Chronic right perihilar mass, chronic changes of the right ribs, postsurgical. No acute process. No acute infiltrate seen. - ECG Data Tracing #1 EKG interpreted by Alejandro Castelan MD: Rhythm: sinus Rate: 94 [place]: normal Ectopy: none Conduction: normal ST Segment Changes: none T Wave Changes: none Q Waves: none No evidence of acute ischemia or injury Normal electrocardiogram - Physician Consults Physician Consulted: Hafsa Aguilar Time: 00:20 Reason -: Admission Comment/Response: Agrees to admit the patient to the hospital. We discussed the patient's clinical information, including history, exam, laboratory and radiology results and ED course. Per hospital procedure, I will write temporary bridge inpatient orders on the patient. Specific orders requested by the admitting physician: Continue nebulizers, steroids, antibiotics, oxygen General Adult HPI - General Stated complaint: SOB,COPD Time Seen by Provider: 09/11/19 22:18 - History of Present Illness HPI narrative: The patient has severe COPD. Oxygen dependent 3 L. Complains of increased sh ortness of breath for 2 days. Has dyspnea on exertion as well. Wheezing and rattling in her chest. Chronic cough, says she is producing some light brown sputum. Denies fever or chest pain. States that she just finished steroids a couple of days ago. Says that she was on them for 1 month. She also says that she is on azithromycin 5 days a week for prophylaxis. Her bilingual medical receptionist was Dr. Wilson, she will be seeing the new bilingual medical receptionist here as well. She says she quit smoking 1 month ago. She says she has had about 5 nebulizer treatments today. - Related Data Home Medications Medication Instructions Recorded Confirmed Albuterol Sulfate [Albuterol HFA 2 puffs PO Q4HP PRN 06/17/19 09/11/19 Inhaler] Cholecalciferol (Vitamin D3) 1,000 unit PO DAILY 06/17/19 09/11/19 [Vitamin D3 1,000 Unit Cap] Atorvastatin Calcium [Lipitor 40mg 40 mg PO HS 07/31/19 09/11/19 Tablet] Cholecalciferol (Vitamin D3) 5,000 unit PO WEEKLY 07/31/19 09/11/19 [Vitamin D3] Ferrous Sulfate 325 mg PO DAILY 08/01/19 09/11/19 Fluticasone/Umeclidin/Vilanter 1 puff INHALATION DAILY 08/23/19 09/11/19 [Trelegy Ellipta 100-62.5-25] Previous Rx's Medication Instructions Recorded omeprazole 20 mg capsule,delayed 20 mg PO DAILY #90 cap 08/17/19 release Allergies Allergy/AdvReac Type Severity Reaction Status Date / Time No Known Allergies Allergy Verified 08/18/19 13:22 [facility] History - Hepatitis A Screen Attestation statement:: This patient has been screened for Hepatitis A risk factors. I have reviewed the patient's past medical history: Yes Medical History: Reports:: Cancer, Carotid Stenosis, Chronic Obstructive Pulmonary Disease (COPD), Cerebrovascular Accident, Gastroesophageal Reflux Disease(GERD), Hyperlipidemia Denies:: Diabetes Mellitus Type 1, Diabetes Mellitus Type 2, Internal Pacemaker, MRSA, Seizures Other Medical History: Reports: Anemia Laterality Cases: Bilateral: Tonsillectomy, Other Other Surgeries: Yes: Hysterectomy-Total, Other. No: Pacemaker Amputation: No Fractures: No Comment: Cartoid artery - Social History Smoking Status: Former smoker Tobacco Type: cigarettes # Packs/Day (cigarettes): 1 #Yrs smoked (if former smoker): 45 Alcohol Intake: never Alcohol Intake Frequency:: other Substance Use Type: painkillers Occupational Status: disabled Housing: house Household Members: spouse, family Family Hx:: Cancer ROS Obtained: Yes All systems reviewed & no additional complaints - Constitutional Constitutional: Denies fever(s) - Cardiovascular Cardiovascular: Denies chest pain - Respiratory Respiratory: Yes cough, Yes dyspnea, Yes dyspnea on exertion, No coughing up blood, Yes wheezing - Gastrointestinal Gastrointestingal: Denies: abdominal pain, vomiting Physical Exam - General General appearance: alert Comment: Appears chronically ill. Mildly to moderately labored respirations. Speaks in short sentences. - Head Head exam: atraumatic, normocephalic - Eye Eye exam: Present: normal appearance, EOMI - ENT ENT exam: Present: mucous membranes moist - Neck Neck exam: Present: normal inspection, trachea midline - Chest Chest inspection: Present: normal inspection, symmetric chest wall rise - Respiratory Respiratory exam: Present: wheezes, other (Rhonchi) - Cardiovascular Cardiovascular exam: Present: regular rate, normal rhythm, normal heart sounds - Abdominal Exam Abdominal exam: Present: soft, normal bowel sounds. Absent: distention, tenderness - Extremities Exam Extremities exam: Present: other (Trace pitting ankle edema bilaterally) - Neurological Exam Neurological exam: Present: alert, oriented X3 - Psychiatric Psychiatric exam: Present: normal affect, normal mood - Skin Skin exam: Present: warm, dry
[2019-09-11 22:41] LABS: ABG Base Excess 7.2 mmol/L (-2.4-2.3); ABG HCO3 33.5 mmhg (22.0-26.0); ABG Oxygen Saturation 92 % (90-100); ABG PH 7.31 mmol/L (7.35-7.45); ABG PO2 66.4 mmhg (80-100); ABG TCO2 35.6 mmhg (23-27)
[2019-09-11 22:42] LABS: Allen's Test Y; Oxygen 4 %
[2019-09-11 22:43] LABS: ABG PCO2 68.6 mmhg (35.0-45.0)
[2019-09-11 23:41] LABS: Basophils # 0.1 K/mm3 (0-0.2); Basophils % 0.7 % (0.1-2.0); Eosinophils # 0.2 K/mm3 (0.0-0.4); Eosinophils % 1.1 % (0.1-12.0); Hemoglobin 13.9 g/dL (12.2-16.2); Lymphocytes # 2.4 K/mm3 (0.7-4.5); Lymphocytes % 17.6 % (10-50); Mean Corpuscular HGB Conc 30.9 g/dL (31.8-35.4); Mean Corpuscular Volume 101.5 fl (81-99); Mean Platelet Volume 7.3 fl (7.4-10.4); Monocytes # 1.5 K/mm3 (0.1-1.0); Monocytes % 10.8 % (1.7-9.3); Neutrophils # 9.7 K/mm3 (1.8-7.8); Neutrophils % 69.9 % (37.0-80.0); Platelet Count 236 K/mm3 (142-424); Red Blood Count 4.43 M/mm3 (4.20-5.40); Red Cell Distribution Width 14.9 % (11.5-17.5); White Blood Count 13.8 K/mm3 (4.8-10.8)
[2019-09-11 23:57] LABS: Albumin Level 3.5 gm/dL (3.4-5.0); Albumin/Globulin Ratio 1.3 (1.1-1.8); Anion Gap 10.1 mEq/L (5-15); Bilirubin,Total 0.3 mg/dL (0.2-1.0); Calcium 8.6 mg/dL (8.5-10.1); Globulin 2.7 gm/dl (1.3-3.2); Total Protein,Serum 6.2 gm/dL (6.4-8.2)
--- NOTE | 2019-09-12 08:29 | History & Physical Report ---
*Admission Date: 09/12/19 *Chief complaint: Cough/congestion *History of present illness: The patient has severe COPD. Oxygen dependent 3 L. Complains of increased shortness of breath for 2 days. Has dyspnea on exertion as well. Wheezing and rattling in her chest. Chronic cough, says she is producing some light brown sputum. Denies fever or chest pain. States that she just finished steroids a couple of days ago. Says that she was on them for 1 month. She also says that she is on azithromycin 5 days a week for prophylaxis. Her bridge tender was Dr. Wilson, she will be seeing the new bridge tender here as well. She says she quit smoking 1 month ago. She says she has had about 5 nebulizer treatments today. Above note per emergency department. Patient feels somewhat better this morning. Has produced a sputum culture [facility] History I have reviewed the patient's past medical history: Yes Medical History: Reports:: Carotid Stenosis, Chronic Obstructive Pulmonary Disease (COPD), Cerebrovascular Accident, Gastroesophageal Reflux Disease(GERD), Hyperlipidemia Denies:: Cancer, Diabetes Mellitus Type 1, Diabetes Mellitus Type 2, Internal Pacemaker, MRSA, Seizures *Have you ever received a pneumonia vaccine?: No *Have you received a flu vaccine this season?: No Other Medical History: Reports: Anemia, Cataracts Laterality Cases: Bilateral: Tonsillectomy, Other Other Surgeries: Yes: Hysterectomy-Total, Hysterectomy-Partial, Other. No: Pacemaker Amputation: No Fractures: No - *Social History Educational Level: Completed High School Smoking Status: Former smoker Tobacco Type: cigarettes # Packs/Day (cigarettes): 1 #Yrs smoked (if former smoker): 45 Alcohol Intake: never Alcohol Intake Frequency:: other Substance Use Type: opiates, painkillers *Occupational Status:: disabled Housing: house Household Members: spouse, family *Travel in the last 8 weeks: None Family Hx:: No significant family history Review of Systems - Review of Systems Review of systems:: pertinent systems reviewed and negative unless documented below Patient does not have any cardiac symptoms at this point. No GI symptoms. Otherwise 10 point review of systems negative except as outlined in HPI Meds Home Medications Medication Instructions Recorded Confirmed Type Albuterol Sulfate [Albuterol HFA 2 puffs PO Q4HP PRN 06/17/19 09/11/19 History Inhaler] Cholecalciferol (Vitamin D3) 1,000 unit PO DAILY 06/17/19 09/11/19 History [Vitamin D3 1,000 Unit Cap] Atorvastatin Calcium [Lipitor 40mg 40 mg PO HS 07/31/19 09/11/19 History Tablet] Cholecalciferol (Vitamin D3) 5,000 unit PO WEEKLY 07/31/19 09/11/19 History [Vitamin D3] Ferrous Sulfate 325 mg PO DAILY 08/01/19 09/11/19 History omeprazole 20 mg capsule,delayed 20 mg PO DAILY #90 cap 08/17/19 09/11/19 Rx release Fluticasone/Umeclidin/Vilanter 1 puff INHALATION DAILY 08/23/19 09/11/19 History [Erin Anton 100-62.5-25] Allergies Allergy/AdvReac Type Severity Reaction Status Date / Time No Known Allergies Allergy Verified 08/18/19 13:22 Exam Vital signs and Labs for Last 24 Hours: Temp Pulse Resp BP Pulse Ox 97.8 F 91 H 18 143/75 H 87 L 09/12/19 04:00 09/12/19 06:50 09/12/19 04:00 09/12/19 04:00 09/12/19 06:50 Laboratory Results - last 24 hr 09/11/19 22:40: Specimen Source R/r, O2 % 4, ABG pH 7.31 L, ABG pCO2 68.6 H, ABG pO2 66.4 L, ABG HCO3 33.5 H, ABG Total CO2 35.6 H, ABG O2 Saturation 92, ABG Base Excess 7.2 H, Gregg Test Y 09/11/19 23:20: WBC 13.8 H, RBC 4.43, Hgb 13.9, Hct 45.0, MCV 101.5 H, MCH 31.4 H, MCHC 30.9 L, RDW 14.9, Plt Count 236, MPV 7.3 L, Neut % (Auto) 69.9, Lymph % (Auto) 17.6, [place] % (Auto) 10.8 H, Eos % (Auto) 1.1, Baso % (Auto) 0.7, Neut # (Auto) 9.7 H, Lymph # (Auto) 2.4, [place] # (Auto) 1.5 H, Eos # (Auto) 0.2, Baso # (Auto) 0.1 09/11/19 23:20: Sodium 134 L, Potassium 4.1, Chloride 92 L, Carbon Dioxide 36 H, Anion Gap 10.1, BUN 11, Creatinine 0.60, Estimated Creat Clear 50, Estimated GFR 101, Est GFR ( Amer) 123, Glucose 83, Calcium 8.6, Total Bilirubin 0.3, AST 21, ALT 31, Alkaline Phosphatase 204 H, Troponin I 0.03, Total Protein 6.2 L , Albumin 3.5, Globulin 2.7, Albumin/Globulin Ratio 1.3 09/11/19 23:20: Lactate 0.5 I & O for Last 24 hours: Intake & Output 09/09/19 09/10/19 09/11/19 09/12/19 11:59 11:59 11:59 11:59 Intake Total 203 / 203 Output Total 1300 / 1300 Balance -1097 / -1097 Weight 125 lb 1 oz Microbiology Reports for the Last 24 Hours: Microbiology 09/12/19 07:10 Sputum - Expectorated Sputum Gram Stain - Final Narrative: Patient appears frail, appears somewhat older than stated age. Oropharynx dry but clear. No JVD. Heart rate regular. No edema or clubbing. Abdomen soft. Neurologic exam is notable for alert and oriented status. Lungs have rhonchi, crackles in both lung drummond, symmetric air entry. Lots of rhonchi and expiratory distal/end expiratory wheezing Assessment and Plan (1) Acute and chronic respiratory failure Current visit: Yes Status: Acute Qualifiers: Respiratory failure complication: hypoxia and hypercapnia Qualified Code(s): J96.21 - Acute and chronic respiratory failure with hypoxia; J96.22 - Acute and chronic respiratory failure with hypercapnia Category: Medical Code(s): J96.20 - Acute and chronic respiratory failure, unspecified whether with hypoxia or hypercapnia (2) COPD exacerbation Current visit: Yes Status: Acute Category: Medical Code(s): J44.1 - Chronic obstructive pulmonary disease with (acute) exacerbation Agree with admission. Significant COPD. Aggressive inpatient therapy.
--- NOTE | 2019-09-12 11:13 | Pharmacy Consult Notes ---
[facility] Pharmacy VTE Monitoring - Patient Demographics Admission date: 09/12/19 Report Date: 09/12/19 Time: 11:13 Allergies/Adverse Reactions: Patient Allergies No Known Allergies Allergy (Verified 08/18/19 13:22) Height: 1.57 m Weight: 56.727 kg Patient Problems: Current Active Problems COPD exacerbation (Acute) Acute and chronic respiratory failure (Acute) Sepsis (Acute) - VTE Risk Labs: VTE Related Lab Results Hgb 13.9 g/dL (12.2-16.2) 09/11/19 23:20 Hct 45.0 % (37.0-47.0) 09/11/19 23:20 Plt Count 236 K/mm3 (142-424) 09/11/19 23:20 BUN 11 mg/dL (7-18) 09/11/19 23:20 Creatinine 0.60 mg/dL (0.55-1.02) 09/11/19 23:20 Estimated Creat Clear 50 mL/min (50-200) 09/11/19 23:20 Was VTE Risk Assessment Performed: Yes VTE Score: 5 VTE Risk Level: Low Risk - Prophylaxis VTE Prophylaxis Ordered?: Yes Types of VTE Prophylaxis: TEDS Knee High Location of Applied Device: Bilateral Lower Extremeties
--- NOTE | 2019-09-12 18:11 | Electrocardiograph Report ---
APPROVED REPORT Exam: Resting ECG HR:94 bpm ECG Measurements Heart Rate 94 AXES CA 128 P 61 QRSd 70 QRS 48 QT 324 T48 QTc 405 <Conclusion> Normal sinus rhythm Normal ECG Electronically signed by : Toribio Brown, 09/12/2019 18:11:27
[2019-09-13 06:29] LABS: Basophils % 0.1 % (0.1-2.0); Eosinophils # 0.1 K/mm3 (0.0-0.4); Eosinophils % 0.3 % (0.1-12.0); Hemoglobin 14.7 g/dL (12.2-16.2); Lymphocytes # 0.7 K/mm3 (0.7-4.5); Lymphocytes % 2.5 % (10-50); Mean Corpuscular HGB Conc 30.6 g/dL (31.8-35.4); Mean Corpuscular Volume 104.1 fl (81-99); Mean Platelet Volume 7.3 fl (7.4-10.4); Monocytes # 1.1 K/mm3 (0.1-1.0); Monocytes % 4.5 % (1.7-9.3); Neutrophils # 23.3 K/mm3 (1.8-7.8); Neutrophils % 92.5 % (37.0-80.0); Platelet Count 261 K/mm3 (142-424); Red Blood Count 4.62 M/mm3 (4.20-5.40); Red Cell Distribution Width 14.8 % (11.5-17.5); White Blood Count 25.2 K/mm3 (4.8-10.8)
[2019-09-13 06:31] LABS: Anion Gap 8.1 mEq/L (5-15); Calcium 8.5 mg/dL (8.5-10.1)
[2019-09-13 08:19] LABS: Lymphocytes % 3 % (10-50); Monocytes % 5 % (2-9); Neutrophils % 91 % (42-76); Total Cells Counted 100
[2019-09-13 08:20] LABS: Macrocytosis 1+
--- NOTE | 2019-09-13 21:20 | Progress Note ---
Internal Medicine - PN: Subj *Date: 09/13/19 *Time: 09:00 Interval history: Patient stable this morning on exam. Still very wheezy however with respiratory distress. Remains afebrile and hemodynamically stable. Tolerating breathing treatments. On home oxygen level. Given frequency of breathing treatments required, patient comfortable with consideration for discharge. Would agree. Denies nausea, vomiting, chest pain, diarrhea. Exam Vital signs and Labs for Last 24 Hours: Temp Pulse Resp BP Pulse Ox 98.4 F 81 20 165/85 H 96 09/13/19 16:00 09/13/19 18:16 09/13/19 16:00 09/13/19 16:00 09/13/19 16:00 Laboratory Results - last 24 hr 09/13/19 06:13: WBC 25.2 H* D, RBC 4.62, Hgb 14.7, Hct 48.0 H, MCV 104.1 H, MCH 31.8 H, MCHC 30.6 L, RDW 14.8, Plt Count 261, MPV 7.3 L, Neut % (Auto) 92.5 H, Lymph % (Auto) 2.5 L, [place] % (Auto) 4.5, Eos % (Auto) 0.3, Baso % (Auto) 0.1, Neut # (Auto) 23.3 H, Lymph # (Auto) 0.7, [place] # (Auto) 1.1 H, Eos # (Auto) 0.1, Baso # (Auto) 0.0, Total Counted 100, Neutrophils % (Manual) 91 H, Band Neutrophils % 1.0, Lymphocytes % (Manual) 3 L, Monocytes % (Manual) 5, Platelet Estimate Normal, Macrocytosis 1+ 09/13/19 06:13: Sodium 137, Potassium 4.1, Chloride 97 L, Carbon Dioxide 36 H, Anion Gap 8.1, BUN 13, Creatinine 0.48 L, Estimated Creat Clear 53, Estimated GFR 131, Est GFR ( Amer) 159 D, Glucose 131 H, Calcium 8.5 I & O for Last 24 hours: Intake & Output 09/10/19 09/11/19 09/12/19 09/13/19 23:59 23:59 23:59 23:59 Intake Total 803 / 803 2253 / 2253 Output Total 1900 / 1900 1200 / 1200 Balance -1097 / -1097 1053 / 1053 Weight 54.431 kg 56.727 kg 57.861 kg Microbiology Reports for the Last 24 Hours: Microbiology 09/12/19 07:10 Sputum - Expectorated Sputum Gram Stain - Final 09/12/19 07:10 Sputum - Expectorated Sputum Sputum Culture - Preliminary Narrative: Patient appears frail, appears somewhat older than stated age. Oropharynx moist but clear. No JVD. Heart rate regular No edema or clubbing. Abdomen soft. non tender Neurologically intect, no focal deficits. Alert and oriented. Lungs have coarse breath sounds and poor air movement. Crackles and rhonchi bilaterally. Diffuse wheeze Assessment and Plan (1) Acute and chronic respiratory failure Current visit: Yes Status: Acute Qualifiers: Respiratory failure complication: hypoxia and hypercapnia Qualified Code(s): J96.21 - Acute and chronic respiratory failure with hypoxia; J96.22 - Acute and chronic respiratory failure with hypercapnia Category: Medical Code(s): J96.20 - Acute and chronic respiratory failure, unspecified whether with hypoxia or hypercapnia (2) COPD exacerbation Current visit: Yes Status: Acute Category: Medical Code(s): J44.1 - Chronic obstructive pulmonary disease with (acute) exacerbation (3) HLD (hyperlipidemia) Current visit: No Status: Chronic Qualifiers: Hyperlipidemia type: mixed hyperlipidemia Qualified Code(s): E78.2 - Mixed hyperlipidemia Category: Medical Code(s): E78.5 - Hyperlipidemia, unspecified (4) Tobacco use disorder Current visit: No Status: Chronic Category: Medical Code(s): F17.200 - Nicotine dependence, unspecified, uncomplicated - Assessment and plan all Dx Assessment and Plan for all problems:: Continue respiratory distress and regular breathing treatment needed. Unable to continue level of treatment at home. Continues to require inpatient admission. Continue steroids, antibiotics, breathing treatments.
[2019-09-14 08:17] LABS: Basophils % 0.1 % (0.1-2.0); Eosinophils # 0.1 K/mm3 (0.0-0.4); Eosinophils % 0.6 % (0.1-12.0); Hematocrit 42.7 % (37.0-47.0); Hemoglobin 13.7 g/dL (12.2-16.2); Lymphocytes # 0.3 K/mm3 (0.7-4.5); Lymphocytes % 1.2 % (10-50); Mean Corpuscular HGB Conc 32.1 g/dL (31.8-35.4); Mean Corpuscular Volume 100.8 fl (81-99); Mean Platelet Volume 7.5 fl (7.4-10.4); Monocytes # 0.9 K/mm3 (0.1-1.0); Monocytes % 4.2 % (1.7-9.3); Neutrophils # 20.7 K/mm3 (1.8-7.8); Neutrophils % 93.9 % (37.0-80.0); Platelet Count 227 K/mm3 (142-424); Red Blood Count 4.23 M/mm3 (4.20-5.40); Red Cell Distribution Width 13.8 % (11.5-17.5)
[2019-09-14 08:21] LABS: Anion Gap 10.8 mEq/L (5-15); Calcium 8.2 mg/dL (8.5-10.1)
[2019-09-14 09:07] LABS: Anisocytosis 1+; Lymphocytes % 2 % (10-50); Macrocytosis 1+; Monocytes % 2 % (2-9); Neutrophils % 96 % (42-76); Total Cells Counted 100
[2019-09-14 09:21] VITALS: BP 152/88
--- NOTE | 2019-09-14 10:31 | Discharge Summary ---
General - General Admission date:: 09/12/19 Discharge date: 09/14/19 HPI HPI: The patient has severe COPD. Oxygen dependent 3 L. Complains of increased shortness of breath for 2 days. Has dyspnea on exertion as well. Wheezing and rattling in her chest. Chronic cough, says she is producing some light brown sputum. Denies fever or chest pain. States that she just finished steroids a couple of days ago. Says that she was on them for 1 month. She also says that she is on azithromycin 5 days a week for prophylaxis. Her sea air land officer was Dr. Wilson, she will be seeing the new sea air land officer here as well. She says she quit smoking 1 month ago. She says she has had about 5 nebulizer treatments today. Above note per emergency department. Patient feels somewhat better this morning. Has produced a sputum culture Hospital Course Hospital Course: Patient was admitted to the hospital, improved very nicely over the next couple of days and is essentially back to her baseline at this morning, which is honestly quite frankly not very good. She continues to require oxygen at 2 L, and continues to have wheezing but feels "as good as I normally do." Sputum culture grew gram-negative kristal this morning. Sensitivities are not back. White blood cell count elevated after admission and treatment with methylprednisolone intravenously but this morning is down slightly. Plan will be to discharge home with levofloxacin therapy for 7 days, ongoing prednisone and Lasix because of some fluid retention, I have advised that she needs to call her regular physicians office tomorrow for an appointment early next week. I think she will need to be on longer term steroids. I would advise a CBC and BMP on Thursday of next week to make sure that her leukocytosis is resolving. She has an appointment with pulmonology here at [facility] in the next week. Objective Vital signs: Temp Pulse Resp BP Pulse Ox 97.9 F 80 16 152/88 H 93 L 09/14/19 08:00 09/14/19 09:53 09/14/19 08:00 09/14/19 08:00 09/14/19 08:00 Narrative: Patient is awake, alert, on oxygen, able to sit up in the bed. Ate 100% of her breakfast. Lungs have diffuse wheezing but good air movement, improved over admission. Some rhonchi bilaterally, clears with a deep breath. Heart rate regular. Abdomen soft, Trace ankle edema. Some facial puffiness noted. Otherwise neurologic exam intact. Abdomen soft nontender. Results Labs on day of discharge: Labs from last 24 hours 09/14/19 09/14/19 08:07 08:07 WBC 22.0 H* RBC 4.23 Hgb 13.7 Hct 42.7 MCV 100.8 H MCH 32.4 H MCHC 32.1 RDW 13.8 Plt Count 227 MPV 7.5 Neut % (Auto) 93.9 H Lymph % (Auto) 1.2 L [place] % (Auto) 4.2 Eos % (Auto) 0.6 Baso % (Auto) 0.1 Neut # (Auto) 20.7 H Lymph # (Auto) 0.3 L [place] # (Auto) 0.9 Eos # (Auto) 0.1 Baso # (Auto) 0.0 Total Counted 100 Neutrophils % (Manual) 96 H Lymphocytes % (Manual) 2 L Monocytes % (Manual) 2 Platelet Estimate Normal Anisocytosis 1+ Macrocytosis 1+ Sodium 133 L Potassium 3.8 Chloride 94 L Carbon Dioxide 32 Anion Gap 10.8 BUN 14 Creatinine 0.53 L Estimated Creat Clear 54 Estimated GFR 117 Est GFR ( Amer) 141 Glucose 220 H Calcium 8.2 L Preliminary micro results at discharge 09/12/19 07:10 Sputum Culture - Preliminary Sputum - Expectorated Sputum Gram Negative Rods 09/11/19 23:20 Blood Culture - Preliminary Blood NO GROWTH AFTER 48 HOURS 09/11/19 23:20 Blood Culture - Preliminary Blood NO GROWTH AFTER 48 HOURS DS: Diagnosis - Discharge Diagnosis (1) Acute and chronic respiratory failure Status: Acute (2) COPD exacerbation Status: Acute (3) HLD (hyperlipidemia) Status: Chronic (4) Tobacco use disorder Status: Chronic (5) Community acquired pneumonia Status: Acute Problem details: Gram-negative kristal pneumonia, cultures pending Discharge Plan - Patient Discharge Instructions ACTIVITY: Continue current activity DIET: continue same diet Patient Instructions: Chronic Obstructive Pulmonary Disease, DI for Chronic Obstructive Pulmonary Disease, DI for Respiratory Failure, Respiratory Failure - Follow up Plan Follow up with: Bridger Aguilar MD [Primary Care Provider] - 09/19/19 Disposition: Home, Self-Custodial Medications: Home Medications Medication Instructions Recorded Confirmed Type Albuterol Sulfate [Albuterol HFA 2 puffs PO Q4HP PRN 06/17/19 09/11/19 History Inhaler] Cholecalciferol (Vitamin D3) 1,000 unit PO DAILY 06/17/19 09/11/19 History [Vitamin D3 1,000 Unit Cap] Atorvastatin Calcium [Lipitor 40mg 40 mg PO HS 07/31/19 09/11/19 History Tablet] Ferrous Sulfate 325 mg PO BID 08/01/19 09/12/19 History omeprazole 20 mg capsule,delayed 20 mg PO DAILY #90 cap 08/17/19 09/11/19 Rx release Fluticasone/Umeclidin/Vilanter 1 puff INHALATION DAILY 08/23/19 09/11/19 History [Trelegy Ellipta 100-62.5-25] Azithromycin 250 mg PO MOTUWETHFR 09/12/19 09/12/19 History Buprenorphine HCl/Naloxone HCl 2 each SL DAILY 09/12/19 09/12/19 History [Buprenorphin-Naloxon 8-2 mg Sl] Ergocalciferol (Vitamin D2) 50,000 unit PO WEEKLY 09/12/19 09/12/19 History [Drisdol 50,000 units (1.25mg) capsule] Pregabalin 75 mg PO BID 09/12/19 09/12/19 History Furosemide [Lasix 20mg tab] 20 mg PO DAILY #15 tab 09/14/19 Rx levoFLOXacin [Levaquin 500mg 500 mg PO DAILY #7 tab 09/14/19 Rx tab] predniSONE [Deltasone 20mg 20 mg PO BID 7 Days #14 tab 09/14/19 Rx tablet] Prescriptions/Medication Reconciliation: New predniSONE [Deltasone 20mg tablet] 20 mg PO BID 7 Days #14 tab Furosemide [Lasix 20mg tab] 20 mg PO DAILY #15 tab levoFLOXacin [Levaquin 500mg tab] 500 mg PO DAILY #7 tab Continued omeprazole 20 mg capsule,delayed release 20 mg PO DAILY #90 cap Cholecalciferol (Vitamin D3) [Vitamin D3 1,000 Unit Cap] 1,000 unit PO DAILY Albuterol Sulfate [Albuterol HFA Inhaler] 2 puffs PO Q4HP PRN PRN Reason: Shortness Of Breath Or Wheezing Atorvastatin Calcium [Lipitor 40mg Tablet] 40 mg PO HS Azithromycin 250 mg PO MOTUWETHFR Buprenorphine HCl/Naloxone HCl [Buprenorphin-Naloxon 8-2 mg Sl] 2 each SL DAILY Ferrous Sulfate 325 mg PO BID Fluticasone/Umeclidin/Vilanter [Trelegy Ellipta 100-62.5-25] 1 puff INHALATION DAILY Ergocalciferol (Vitamin D2) [Drisdol 50,000 units (1.25mg) capsule] 50,000 unit PO WEEKLY Pregabalin 75 mg PO BID Other Amb Orders: Basic Metabolic Panel Time Frame: 09/19/19, Location: None Selected Complete Blood Count Auto Diff Time Frame: 09/19/19, Location: None Selected - Problem Reconciliation Problems Reviewed?: Yes
== END 2019-09-14 12:00 | disposition home or self-care (01) ==
LOC: 2ND 21:38 → ER 21:38 → 2ND 09-12 01:17
PROVIDERS: ADMIT Internal Medicine Adolescent Medicine; ATTEND Internal Medicine Adolescent Medicine
CPT/HCPCS: 36415; 71020; 71046; 71260; 80048; 80053; 82803; 83605; 84484; 85007; 85025; 87040; 87070; 87077; 87186; 87205; 93005; 94640; 94760; 94761; 96365; 96366; 96375; 99285; G0378; J0456; J0571; Q9967

== ENCOUNTER 2019-09-21 08:34 | Outpatient (RCR) | payer MEDICARE, MEDICAID, SELFPAY ==
[2019-09-21 11:07] LABS: Anion Gap 8.9 mEq/L (5-15); Blood Urea Nitrogen 11 mg/dL (7-18); Calcium 8.5 mg/dL (8.5-10.1); Carbon Dioxide 38 mmol/L (21.0-32.0); Chloride 89 mmol/L (98-107); Creatinine,Serum 0.68 mg/dL (0.55-1.02); Estimated Glomerular Filt Rate 88 ml/min (>60); GFR (African American) 106 ML/MIN (>60); Glucose 206 mg/dL (74-106); Potassium 3.9 mmoL/L (3.5-5.1); Sodium 132 mmol/L (136-145)
== END 2019-12-14 10:25 | disposition home or self-care (01) ==
LOC: PT 08:34
PROVIDERS: Visit Provider Internal Medicine Sleep Medicine
DX: J44.9 Chronic obstructive pulmonary disease, unspecified (principal)
CPT/HCPCS: 36415; 80048

== ENCOUNTER 2019-10-06 12:11 | Observation (INO) ==
--- NOTE | 2019-10-06 12:36 | Emergency Department Note ---
ED Disposition Clinical Impression: Acute exacerbation of chronic obstructive pulmonary disease (COPD) Pneumonia Qualifiers: Pneumonia type: due to unspecified organism Laterality: bilateral Lung location: lower lobe of lung Qualified Code(s): J18.1 - Lobar pneumonia, unspecified organism Disposition: Admitted As Inpatient Condition on Discharge: Fair (Stable) Time of Disposition: 13:19 - Critical Care Critical Care Time: No Attestation: On 10/06/19, the high probability of a clinically significant, sudden or life threatening deterioration of the following system(s) required my full and direct attention, intervention and personal management. The time I documented below is in addition to time spent performing reported procedures but includes the following listed in this critical care notation. Medical Decision Making - Medical Records Medical records reviewed: Yes: I reviewed the patient's medical records. - Neftali Inquiry Pt receiving controlled substance: No Neftali was queried for this patient: No Vital Signs: 10/06/19 12:30 10/06/19 13:14 Temperature 98.3 F Temperature Source Oral Pulse Rate [Right Radial] 118 H Respiratory Rate 24 Blood Pressure [Right Arm] 161/97 H Blood Pressure Mean [Right Arm] 118 02 Sat by Pulse Oximetry 87 L Oxygen Delivery Method Nasal Cannula Nasal Cannula Oxygen Flow Rate (LPM) 3 3 - Lab Data Lab Results 10/06/19 12:37: WBC 12.8 H, RBC 4.46, Hgb 14.5, Hct 44.3, MCV 99.3 H, MCH 32.5 H , MCHC 32.7, RDW 13.7, Plt Count 208, MPV 7.9, Neut % (Auto) 95.2 H, Lymph % (Auto) 2.7 L, [place] % (Auto) 1.8, Eos % (Auto) 0.1, Baso % (Auto) 0.1, Neut # (Auto) 12.2 H, Lymph # (Auto) 0.4 L, [place] # (Auto) 0.2, Eos # (Auto) 0.0, Baso # (Auto) 0.0, Total Counted 100, Neutrophils % (Manual) 95 H, Lymphocytes % (Manual) 3 L, Monocytes % (Manual) 2, Platelet Estimate Normal, RBC Morphology Normal 10/06/19 12:37: Sodium 135 L, Potassium 3.2 L, Chloride 92 L, Carbon Dioxide 36 H, Anion Gap 10.2, BUN 14, Creatinine 1.11 H, Estimated Creat Clear 47, Estimated GFR 50 L, Est GFR ( Amer) 60, Glucose 172 H, Calcium 8.4 L, Total Bilirubin 0.4, AST 94 H, ALT 209 H, Alkaline Phosphatase 174 H, Troponin I < 0.02, Total Protein 6.6, Albumin 3.2 L, Globulin 3.4 H, Albumin/Globulin Ratio 0.9 L 10/06/19 12:37: Lactate 3.4 H 10/06/19 12:37: Influenza Type A Ag Negative, Influenza Type B Ag Negative Result diagrams: 10/06/19 12:37 10/06/19 12:37 Orders (Tests/Meds): ED MEDICATIONS Generic Name Dose Route Start Last Admin Trade Name Freq PRN Reason Stop Dose Admin Ertapenem 1 gm/ Sodium 50 mls @ 100 mls/hr 10/07/19 13:00 Chloride IV 10/21/19 12:59 Q24H [facility] Protocol Ertapenem 1 gm/ Sodium 100 mls @ 200 mls/hr 10/06/19 13:15 10/06/19 13:06 Chloride IV 10/06/19 13:44 200 mls/hr ONCE ONE Administration Miscellaneous 1 each 10/06/19 13:15 Vancomycin Consult Request * 11/05/19 13:14 CONSULT PHARMACY [facility] Sodium Chloride 3 ml 10/06/19 12:35 Sodium Chloride 3% 15ml [facility] 11/05/19 12:34 ONCE PRN INDUCE SPUTUM COLLECTION Discontinued Medications Generic Name Dose Route Start Last Admin Trade Name Freq PRN Reason Stop Dose Admin Albuterol/Ipratropium 3 ml 10/06/19 12:34 10/06/19 12:50 Duoneb 3ml [facility] 10/06/19 12:35 3 ml ONCE ONE Administration Methylprednisolone Sodium Succinate 125 mg 10/06/19 12:34 10/06/19 12:36 Solu-Medrol 125mg/2ml Vial IV 10/06/19 12:35 125 mg ONCE ONE Administration ORDERS Category Date Time Status Troponin I Q3H Lab 10/06/19 15:45 Ordered Troponin I Q3H Lab 10/06/19 18:45 Ordered Blood Culture Stat Micro 10/06/19 12:43 Received Sputum Culture & Gram Stain Stat Micro 10/06/19 13:00 Received Arterial Blood Gas Stat RT 10/06/19 12:33 Ordered - Radiology Data #1 Image(s): Chest Image Reviewed: Yes I reviewed the patient's radiology results JAYCE Keane [id number] XRay Report Signed Patient: Lenore Anderson MR#: [id number] : 1955 Acct:[id number] Age/Sex: 64 / F ADM Date: 10/06/19 Loc: [facility] 203-[address]: Bridger Aguilar MD Ordering Physician: Yancy Brooks III, DO Date of Service: 10/06/19 Procedure(s): XR chest portable Accession Number(s): [id number] cc: Martín Adames MD; Bridger Aguilar MD~ PROCEDURE: XR CHEST PORTABLE CLINICAL HISTORY: shortness of breath COMPARISON: XR CHEST 2V from 05/31/2019 XR CHEST 2V from 07/31/2019 XR CHEST 2V from 09/11/2019 CT CHEST W CON from 09/13/2019 FINDINGS: Heart size is borderline. There is an atherosclerotic aorta without CHF. Right perihilar opacity extending laterally to the pleural surface is again noted and not significantly changed. According to report right hilar mass was described on CT 09/13/2019. Pleural reaction associated with lateral posterior right rib fractures is again noted. There is no acute infiltrate or pleural effusion. IMPRESSION: No acute cardiopulmonary finding. No significant interval change compared to 09/11/2019. Findings again compatible with right perihilar mass with some associated postobstructive atelectasis/pneumonitis. Healing posterior lateral right rib fractures again noted. Dictated by: Martín Adames 10/06/2019 13:01 Electronically signed by Martín Adames in [place] 10/06/2019 13:01 - ECG Data Tracing #1 I reviewed this ECG and interpreted as documented below: (EKG at 12:42 shows sinus tachycardia with PACs. Rate of 108 bpm) Medical Decision Narrative: 13:16 patient evaluated and worked up. Case subsequently discussed with Yaya Tate NP taking call for Dr. Aguilar today. She has agreed to admit this patient. I have discussed results of work-up, diagnosis and care plan with patient. She understands, agrees and all questions answered. Patient will now be admitted. General Adult HPI - General Stated complaint: SOA Time Seen by Provider: 10/06/19 12:28 Mode of Arrival: Ambulatory Source of Information: Patient Limitations: No Limitations Description of Symptoms (Recalled from ER Triage Doc. by RN): pt presents to ed with co cough/congestion, and shortness of breath - History of Present Illness HPI narrative: Patient is here in the emergency room for evaluation stating that her PCP Dr. Aguilar called her and told her to come into the ER so she could be admitted to the hospital. Patient apparently had a CT scan of her chest performed yesterday, and the scan showed pneumonia. Patient has stage IV COPD. She states she has chronic shortness of breath and chronic cough. Patient is not complaining of having increase in her cough or her shortness of breath/dyspnea on exertion. No chest pain. No abdominal pain. No other complaints. - Related Data Home Medications Medication Instructions Recorded Confirmed Albuterol Sulfate [Albuterol HFA 2 puffs PO Q4HP PRN 06/17/19 10/06/19 Inhaler] Cholecalciferol (Vitamin D3) 1,000 unit PO DAILY 06/17/19 10/06/19 [Vitamin D3 1,000 Unit Cap] Atorvastatin Calcium [Lipitor 40mg 40 mg PO HS 07/31/19 10/06/19 Tablet] Ferrous Sulfate 325 mg PO BID 08/01/19 10/06/19 Fluticasone/Umeclidin/Vilanter 1 puff INHALATION DAILY 08/23/19 10/06/19 [Trelegy Ellipta 100-62.5-25] Azithromycin 250 mg PO MOTUWETHFR 09/12/19 10/06/19 Ergocalciferol (Vitamin D2) 50,000 unit PO WEEKLY 09/12/19 10/06/19 [Drisdol 50,000 units (1.25mg) capsule] buprenorphine 8 mg-naloxone 2 mg 1 tab SUBLINGUAL DAILY tab 09/27/19 10/06/19 sublingual tablet ipratropium 20 mcg-albuterol 100 2 puffs INHALATION Q4H g 09/27/19 10/06/19 mcg/actuation mist for inhalation Furosemide [Furosemide 20mg Tab] 10 mg PO DAILY 10/06/19 10/06/19 predniSONE [Deltasone 10mg tablet] 10 mg PO BID 10/06/19 10/06/19 Previous Rx's Medication Instructions Recorded omeprazole 20 mg capsule,delayed 20 mg PO DAILY #90 cap 08/17/19 release ipratropium 0.5 mg-albuterol 3 mg 3 ml INHALATION QID PRN #90 ml 09/27/19 (2.5 mg base)/3 mL nebulization soln pregabalin 75 mg capsule 75 mg PO BID 30 Days #60 cap 09/27/19 Allergies Allergy/AdvReac Type Severity Reaction Status Date / Time No Known Allergies Allergy Verified 10/06/19 12:33 [facility] History - Hepatitis A Screen Drug use history?: No High risk sexual behaviors?: No History of sexually transmitted infection?: No Currently employed?: No Childcare worker?: No Do you have indoor plumbing?: Yes Do you have electricity?: Yes Attestation statement:: This patient has been screened for Hepatitis A risk factors. I have reviewed the patient's past medical history: Yes Medical History: Reports:: Carotid Stenosis, Chronic Obstructive Pulmonary Disease (COPD), Cerebrovascular Accident, Gastroesophageal Reflux Disease(GERD), Hyperlipidemia Denies:: Cancer, Diabetes Mellitus Type 1, Diabetes Mellitus Type 2, Internal Pacemaker, MRSA, Seizures Other Medical History: Reports: Anemia, Cataracts Laterality Cases: Bilateral: Tonsillectomy, Other Other Surgeries: Yes: Hysterectomy-Total, Hysterectomy-Partial, Other. No: Pacemaker Amputation: No Fractures: No Comment: Cartoid artery - Social History Smoking Status: Former smoker Tobacco Type: cigarettes # Packs/Day (cigarettes): 1 #Yrs smoked (if former smoker): 45 Alcohol Intake: never Alcohol Intake Frequency:: other Substance Use Type: opiates, painkillers Occupational Status: disabled Housing: house Household Members: spouse, family Family Hx:: No significant family history ROS Obtained: Yes All systems reviewed & no additional complaints - Constitutional Constitutional: Reports system reviewed and no additional complaints, except as docu - Eyes Eyes: Reports system reviewed and no additional complaints, except as docu - ENT Ears, Nose, Mouth, and Throat: Reports system reviewed and no additional complaints, except as docu - Cardiovascular Cardiovascular: Reports system reviewed and no additional complaints, except as docu - Respiratory Respiratory: Yes system reviewed and no additional complaints, except as docu, Yes chest congestion, Yes cough, Yes dyspnea, Yes other (Pneumonia found on CT of the chest yesterday) - Gastrointestinal Gastrointestingal: Reports: system reviewed and no additional complaints, except as docu - Genitourinary Female Genitourinary: Reports system reviewed and no additional complaints, except as docu - Musculoskeletal Musculoskeletal: Reports system reviewed and no additional complaints, except as docu - Integumentary/Breasts Skin/Breast: Reports system reviewed and no additional complaints, except as docu - Neurologic Neurologic: Reports system reviewed and no additional complaints, except as docu - Endocrine Endocrine: Reports system reviewed and no additional complaints, except as docu - Hematologic/Lymphatic Henatologic/Lymphatic: Reports system reviewed and no additional complaints, except as docu - Allergic/Immunologic Allergic/Immunologic: Reports system reviewed and no additional complaints, except as docu Physical Exam - General General appearance: alert, in no apparent distress - Head Head exam: atraumatic, normocephalic, normal inspection - Eye Eye exam: Present: PERRL, EOMI - ENT ENT exam: Present: mucous membranes moist - Neck Neck exam: Present: trachea midline - Chest Chest inspection: Present: normal inspection, symmetric chest wall rise - Respiratory Respiratory exam: Present: other (Patient is noted to have equally diminished breath sounds bilaterally with bibasilar end expiratory wheezing and diffuse rhonchi.) - Cardiovascular Cardiovascular exam: Present: tachycardia - Abdominal Exam Abdominal exam: Present: soft, normal bowel sounds. Absent: tenderness, guarding, rebound - Extremities Exam Extremities exam: Present: normal inspection, full ROM. Absent: pedal edema - Neurological Exam Neurological exam: Present: alert, oriented X3, CN II-XII intact - Psychiatric Psychiatric exam: Present: normal affect - Skin Skin exam: Present: warm, dry, intact. Absent: rash, cyanosis, diaphoresis
[2019-10-06 12:48] LABS: Basophils % 0.1 % (0.1-2.0); Eosinophils % 0.1 % (0.1-12.0); Hematocrit 44.3 % (37.0-47.0); Hemoglobin 14.5 g/dL (12.2-16.2); Lymphocytes # 0.4 K/mm3 (0.7-4.5); Lymphocytes % 2.7 % (10-50); Mean Corpuscular HGB Conc 32.7 g/dL (31.8-35.4); Mean Corpuscular Volume 99.3 fl (81-99); Mean Platelet Volume 7.9 fl (7.4-10.4); Monocytes # 0.2 K/mm3 (0.1-1.0); Monocytes % 1.8 % (1.7-9.3); Neutrophils # 12.2 K/mm3 (1.8-7.8); Neutrophils % 95.2 % (37.0-80.0); Platelet Count 208 K/mm3 (142-424); Red Blood Count 4.46 M/mm3 (4.20-5.40); Red Cell Distribution Width 13.7 % (11.5-17.5); White Blood Count 12.8 K/mm3 (4.8-10.8)
[2019-10-06 12:56] LABS: Lymphocytes % 3 % (10-50); Monocytes % 2 % (2-9); Neutrophils % 95 % (42-76); Total Cells Counted 100
[2019-10-06 12:57] LABS: RBC Morphology Normal
[2019-10-06 13:03] LABS: Alanine Aminotransferase 209 U/L (12-78); Albumin Level 3.2 gm/dL (3.4-5.0); Albumin/Globulin Ratio 0.9 (1.1-1.8); Alkaline Phosphatase 174 U/L (46-116); Anion Gap 10.2 mEq/L (5-15); Aspartate Amino Transferase 94 U/L (15-37); Bilirubin,Total 0.4 mg/dL (0.2-1.0); Blood Urea Nitrogen 14 mg/dL (7-18); Calcium 8.4 mg/dL (8.5-10.1); Carbon Dioxide 36 mmol/L (21.0-32.0); Chloride 92 mmol/L (98-107); Globulin 3.4 gm/dl (1.3-3.2); Glucose 172 mg/dL (74-106); Sodium 135 mmol/L (136-145); Total Protein,Serum 6.6 gm/dL (6.4-8.2)
--- NOTE | 2019-10-06 13:18 | Pharmacy Consult Notes ---
- Pharmacy Consult Date: 10/06/19 Time: 13:17 Referring provider: DR. PEREA Reason for Consult:: VANCOMYCIN DOSING Allergies and ADEs:: Allergies Allergy/AdvReac Type Severity Reaction Status Date / Time No Known Allergies Allergy Verified 10/06/19 12:33 Home Medications:: Home Medications Medication Instructions Recorded Confirmed Type Albuterol Sulfate [Albuterol HFA 2 puffs PO Q4HP PRN 06/17/19 10/06/19 History Inhaler] Cholecalciferol (Vitamin D3) 1,000 unit PO DAILY 06/17/19 10/06/19 History [Vitamin D3 1,000 Unit Cap] Atorvastatin Calcium [Lipitor 40mg 40 mg PO HS 07/31/19 10/06/19 History Tablet] Ferrous Sulfate 325 mg PO BID 08/01/19 10/06/19 History omeprazole 20 mg capsule,delayed 20 mg PO DAILY #90 cap 08/17/19 10/06/19 Rx release Fluticasone/Umeclidin/Vilanter 1 puff INHALATION DAILY 08/23/19 10/06/19 History [Erin Ellipta 100-62.5-25] Azithromycin 250 mg PO MOTUWETHFR 09/12/19 10/06/19 History Ergocalciferol (Vitamin D2) 50,000 unit PO WEEKLY 09/12/19 10/06/19 History [Drisdol 50,000 units (1.25mg) capsule] buprenorphine 8 mg-naloxone 2 mg 1 tab SUBLINGUAL DAILY tab 09/27/19 10/06/19 History sublingual tablet ipratropium 0.5 mg-albuterol 3 mg 3 ml INHALATION QID PRN #90 ml 09/27/19 10/06/19 Rx (2.5 mg base)/3 mL nebulization soln ipratropium 20 mcg-albuterol 100 2 puffs INHALATION Q4H g 09/27/19 10/06/19 History mcg/actuation mist for inhalation pregabalin 75 mg capsule 75 mg PO BID 30 Days #60 cap 09/27/19 10/06/19 Rx Furosemide [Furosemide 20mg Tab] 10 mg PO DAILY 10/06/19 10/06/19 History predniSONE [Deltasone 10mg tablet] 10 mg PO BID 10/06/19 10/06/19 History Height: 1.57 m Weight: 56.699 kg Laboratory Results:: Laboratory Results - last 24 hr 10/06/19 12:37: WBC 12.8 H, RBC 4.46, Hgb 14.5, Hct 44.3, MCV 99.3 H, MCH 32.5 H , MCHC 32.7, RDW 13.7, Plt Count 208, MPV 7.9, Neut % (Auto) 95.2 H, Lymph % (Auto) 2.7 L, [place] % (Auto) 1.8, Eos % (Auto) 0.1, Baso % (Auto) 0.1, Neut # (Auto) 12.2 H, Lymph # (Auto) 0.4 L, [place] # (Auto) 0.2, Eos # (Auto) 0.0, Baso # (Auto) 0.0, Total Counted 100, Neutrophils % (Manual) 95 H, Lymphocytes % (Manual) 3 L, Monocytes % (Manual) 2, Platelet Estimate Normal, RBC Morphology Normal 10/06/19 12:37: Sodium 135 L, Potassium 3.2 L, Chloride 92 L, Carbon Dioxide 36 H, Anion Gap 10.2, BUN 14, Creatinine 1.11 H, Estimated Creat Clear 47, Estimated GFR 50 L, Est GFR ( Amer) 60, Glucose 172 H, Calcium 8.4 L, Total Bilirubin 0.4, AST 94 H, ALT 209 H, Alkaline Phosphatase 174 H, Troponin I < 0.02, Total Protein 6.6, Albumin 3.2 L, Globulin 3.4 H, Albumin/Globulin Ratio 0.9 L 10/06/19 12:37: Lactate 3.4 H 10/06/19 12:37: Influenza Type A Ag Negative, Influenza Type B Ag Negative Medical History: Reports:: Carotid Stenosis, Chronic Obstructive Pulmonary Disease (COPD), Cerebrovascular Accident, Gastroesophageal Reflux Disease(GERD), Hyperlipidemia Denies:: Cancer, Diabetes Mellitus Type 1, Diabetes Mellitus Type 2, Internal Pacemaker, MRSA, Seizures Assessment and Plan - Assessment and plan all Dx Assessment and Plan for all problems:: BASED ON PATIENT'S FACTORS, RECOMMEND STARTING WITH VANCOMYCIN 1000 MG Q24H AT THIS TIME. PHARMACY WILL FOLLOW DAILY AND ADJUST APPROPRIATE.
[2019-10-06 13:28] LABS: ABG Base Excess 11.7 mmol/L (-2.4-2.3); ABG Oxygen Saturation 95 % (90-100); ABG PH 7.37 mmol/L (7.35-7.45); ABG PO2 79.5 mmhg (80-100)
[2019-10-06 13:42] LABS: Allen's Test Acceptable
[2019-10-06 13:43] LABS: ABG PCO2 65.3 mmhg (35.0-45.0)
[2019-10-07 06:23] LABS: Basophils % 0.1 % (0.1-2.0); Hematocrit 43.4 % (37.0-47.0); Hemoglobin 13.9 g/dL (12.2-16.2); Lymphocytes # 0.7 K/mm3 (0.7-4.5); Lymphocytes % 3.8 % (10-50); Mean Corpuscular Volume 100.3 fl (81-99); Mean Platelet Volume 8.2 fl (7.4-10.4); Monocytes # 0.7 K/mm3 (0.1-1.0); Monocytes % 3.8 % (1.7-9.3); Neutrophils # 16.2 K/mm3 (1.8-7.8); Neutrophils % 92.4 % (37.0-80.0); Platelet Count 210 K/mm3 (142-424); Red Blood Count 4.33 M/mm3 (4.20-5.40); Red Cell Distribution Width 13.7 % (11.5-17.5); White Blood Count 17.5 K/mm3 (4.8-10.8)
[2019-10-07 06:28] LABS: Anion Gap 11.3 mEq/L (5-15)
--- NOTE | 2019-10-07 07:13 | Pharmacy Consult Notes ---
[facility] Pharmacy VTE Monitoring - Patient Demographics Admission date: 10/06/19 Report Date: 10/07/19 Time: 07:13 Allergies/Adverse Reactions: Patient Allergies No Known Allergies Allergy (Verified 10/06/19 12:33) Height: 1.57 m Weight: 56.756 kg Patient Problems: Current Active Problems COPD exacerbation (Acute) Pneumonia (Acute) - VTE Risk Labs: VTE Related Lab Results Hgb 13.9 g/dL (12.2-16.2) 10/07/19 05:34 Hct 43.4 % (37.0-47.0) 10/07/19 05:34 Plt Count 210 K/mm3 (142-424) 10/07/19 05:34 BUN 12 mg/dL (7-18) 10/07/19 05:34 Creatinine 0.81 mg/dL (0.55-1.02) D 10/07/19 05:34 Estimated Creat Clear 52 mL/min (50-200) 10/07/19 05:34 Was VTE Risk Assessment Performed: Yes VTE Score: 3 VTE Risk Level: Low Risk - Prophylaxis VTE Prophylaxis Ordered?: Yes Types of VTE Prophylaxis: TEDS Knee High Location of Applied Device: Bilateral Lower Extremeties
--- NOTE | 2019-10-07 09:10 | History & Physical Report ---
*Admission Date: 10/06/19 *Chief complaint: soa *History of present illness: 64 yr old female presented to ed for evaluation stating Patient had ct outpt and showed pneumonia. Patient has stage IV COPD. She states she has chronic shortness of breath and chronic cough. pt admitted for acute on chronic resp failure due to copd. [facility] History I have reviewed the patient's past medical history: Yes Medical History: Reports:: Carotid Stenosis, Chronic Obstructive Pulmonary Disease (COPD), Cerebrovascular Accident, Gastroesophageal Reflux Disease(GERD), Hyperlipidemia Denies:: Cancer, Diabetes Mellitus Type 1, Diabetes Mellitus Type 2, Internal Pacemaker, MRSA, Seizures *Have you ever received a pneumonia vaccine?: No *Have you received a flu vaccine this season?: No Other Medical History: Reports: Anemia, Cataracts Laterality Cases: Bilateral: Tonsillectomy, Other Other Surgeries: Yes: Hysterectomy-Total, Hysterectomy-Partial, Other. No: Pacemaker Amputation: No Fractures: No - *Social History Smoking Status: Former smoker Tobacco Type: cigarettes # Packs/Day (cigarettes): 1 #Yrs smoked (if former smoker): 45 Alcohol Intake: never Alcohol Intake Frequency:: other Substance Use Type: opiates, painkillers *Occupational Status:: disabled Housing: house Household Members: spouse, family *Travel in the last 8 weeks: None Family Hx:: No significant family history Review of Systems - Constitutional Denies body ache(s), Denies fever(s), Denies lack of energy - Eyes Denies change in vision, Denies pain - ENT Denies change in voice, Denies neck pain, Denies throat swelling - *Cardiovascular Denies chest pain at rest, Denies leg sores - *Respiratory Reports change in phlegm color, Reports chest congestion, Reports cough, Reports shortness of breath, Reports shortness of breath with activity - *Gastrointestinal Denies nausea, Denies vomiting - *Musculoskeletal Denies joint pain - Integumentary/Breasts Denies rash - *Neurologic Denies abnormal hearing, Denies headache(s) - Psychiatric Denies lack of enjoyment, Denies panic attacks - Endocrine Denies excessive sweating - Hematologic/Lymphatic Denies enlarged lymph nodes - Allergic/Immunologic Reports wheezing, Denies itchy eyes Meds Home Medications Medication Instructions Recorded Confirmed Type Albuterol Sulfate [Albuterol HFA 2 puffs PO Q4HP PRN 06/17/19 10/06/19 History Inhaler] Cholecalciferol (Vitamin D3) 1,000 unit PO DAILY 06/17/19 10/06/19 History [Vitamin D3 1,000 Unit Cap] Atorvastatin Calcium [Lipitor 40mg 40 mg PO HS 07/31/19 10/06/19 History Tablet] Ferrous Sulfate 325 mg PO BID 08/01/19 10/06/19 History omeprazole 20 mg capsule,delayed 20 mg PO DAILY #90 cap 08/17/19 10/06/19 Rx release Fluticasone/Umeclidin/Vilanter 1 puff INHALATION DAILY 08/23/19 10/06/19 History [Trelegy Ellipta 100-62.5-25] Ergocalciferol (Vitamin D2) 50,000 unit PO WEEKLY 09/12/19 10/06/19 History [Drisdol 50,000 units (1.25mg) capsule] buprenorphine 8 mg-naloxone 2 mg 2 tab SUBLINGUAL DAILY tab 09/27/19 10/06/19 History sublingual tablet ipratropium 0.5 mg-albuterol 3 mg 3 ml INHALATION QID PRN #90 ml 09/27/19 10/06/19 Rx (2.5 mg base)/3 mL nebulization soln ipratropium 20 mcg-albuterol 100 2 puffs INHALATION Q4H g 09/27/19 10/06/19 History mcg/actuation mist for inhalation pregabalin 75 mg capsule 75 mg PO BID 30 Days #60 cap 09/27/19 10/06/19 Rx predniSONE [Deltasone 10mg tablet] 10 mg PO BID 10/06/19 10/06/19 History Furosemide [Furosemide 20mg Tab] 20 mg PO DAILY 10/07/19 10/07/19 History Allergies Allergy/AdvReac Type Severity Reaction Status Date / Time No Known Allergies Allergy Verified 10/06/19 12:33 Exam Vital signs and Labs for Last 24 Hours: Temp Pulse Resp BP Pulse Ox 97.8 F 82 16 148/83 H 98 10/07/19 04:00 10/07/19 06:35 10/07/19 04:00 10/07/19 04:00 10/07/19 06:35 Laboratory Results - last 24 hr 10/06/19 12:33: Specimen Source Right radial, O2 % 3lpm nc, ABG pH 7.37, ABG pCO2 65.3 H, ABG pO2 79.5 L, ABG HCO3 37.0 H, ABG Total CO2 39.0 H, ABG O2 Saturation 95, ABG Base Excess 11.7 H, Gregg Test Acceptable 10/06/19 12:37: WBC 12.8 H, RBC 4.46, Hgb 14.5, Hct 44.3, MCV 99.3 H, MCH 32.5 H , MCHC 32.7, RDW 13.7, Plt Count 208, MPV 7.9, Neut % (Auto) 95.2 H, Lymph % (Auto) 2.7 L, [place] % (Auto) 1.8, Eos % (Auto) 0.1, Baso % (Auto) 0.1, Neut # (Auto) 12.2 H, Lymph # (Auto) 0.4 L, [place] # (Auto) 0.2, Eos # (Auto) 0.0, Baso # (Auto) 0.0, Total Counted 100, Neutrophils % (Manual) 95 H, Lymphocytes % (Manual) 3 L, Monocytes % (Manual) 2, Platelet Estimate Normal, RBC Morphology Normal 10/06/19 12:37: Sodium 135 L, Potassium 3.2 L, Chloride 92 L, Carbon Dioxide 36 H, Anion Gap 10.2, BUN 14, Creatinine 1.11 H, Estimated Creat Clear 47, Estimated GFR 50 L, Est GFR ( Amer) 60, Glucose 172 H, Calcium 8.4 L, Total Bilirubin 0.4, AST 94 H, ALT 209 H, Alkaline Phosphatase 174 H, Troponin I < 0.02, Total Protein 6.6, Albumin 3.2 L, Globulin 3.4 H, Albumin/Globulin Ratio 0.9 L 10/06/19 12:37: Lactate 3.4 H 10/06/19 12:37: Influenza Type A Ag Negative, Influenza Type B Ag Negative 10/06/19 15:36: Troponin I < 0.02 10/06/19 16:59: Lactate 3.9 H 10/06/19 18:40: Troponin I < 0.02 10/06/19 19:18: Lactate 3.1 H 10/07/19 05:34: WBC 17.5 H D, RBC 4.33, Hgb 13.9, Hct 43.4, MCV 100.3 H, MCH 32.1 H, MCHC 32.0, RDW 13.7, Plt Count 210, MPV 8.2, Neut % (Auto) 92.4 H, Lymph % (Auto) 3.8 L, [place] % (Auto) 3.8, Eos % (Auto) 0.0 L, Baso % (Auto) 0.1, Neut # (Auto) 16.2 H, Lymph # (Auto) 0.7, [place] # (Auto) 0.7, Eos # (Auto) 0.0, Baso # (Auto) 0.0 10/07/19 05:34: Sodium 133 L, Potassium 3.3 L, Chloride 94 L, Carbon Dioxide 31, Anion Gap 11.3, BUN 12, Creatinine 0.81 D, Estimated Creat Clear 52, Estimated GFR 72, Est GFR ( Amer) 87 D, Glucose 188 H, Calcium 8.0 L I & O for Last 24 hours: Intake & Output 10/04/19 10/05/19 10/06/19 10/07/19 11:59 11:59 11:59 11:59 Intake Total 840 / 840 Balance 840 / 840 Weight 125 lb 2 oz Microbiology Reports for the Last 24 Hours: Microbiology 10/06/19 13:00 Sputum - Expectorated Sputum Gram Stain - Final - Constitutional no acute distress, chronically ill appearing - *Routine HEENT Exam Head: Present: normocephalic Eye: Present: PERRL ENT: Present: mucous membranes moist - *Routine Neck Exam Present: supple. Absent: lymphadenopathy - *Routine Respiratory Exam Present: decreased breath sounds, rhonchi, wheezes - *Routine Cardiovascular Exam Present: RRR - *Routine Abdominal Exam Present: soft, normoactive bowel sounds. Absent: tenderness - *Routine Extremities Exam Present: full ROM. Absent: cyanosis, clubbing, edema - *Routine Skin Exam Present: warm. Absent: rash - *Routine Neurological Exam Present: alert, oriented X3 - Routine Psychiatric Exam Present: normal affect Assessment and Plan (1) Pneumonia Current visit: Yes Status: Acute Qualifiers: Pneumonia type: due to unspecified organism Laterality: bilateral Lung location: lower lobe of lung Category: Medical Code(s): J18.9 - Pneumonia, unspecified organism (2) Acute and chronic respiratory failure Current visit: No Status: Acute Qualifiers: Respiratory failure complication: hypoxia and hypercapnia Qualified Code(s): J96.21 - Acute and chronic respiratory failure with hypoxia; J96.22 - Acute and chronic respiratory failure with hypercapnia Category: Medical Code(s): J96.20 - Acute and chronic respiratory failure, unspecified whether with hypoxia or hypercapnia (3) Acute exacerbation of chronic obstructive airways disease Current visit: No Status: Acute Category: Medical Code(s): J44.1 - Chronic obstructive pulmonary disease with (acute) exacerbation (4) History of lung cancer Current visit: No Status: Acute Category: Medical Code(s): Z85.118 - Personal history of other malignant neoplasm of bronchus and lung - Assessment and plan all Dx Assessment and Plan for all problems:: laura will round later today, pt discussed, orders per laura ct chest iv antibiotics
[2019-10-07 10:13] LABS: Lymphocytes % 5 % (10-50); Neutrophils % 95 % (42-76); Total Cells Counted 100
[2019-10-07 10:14] LABS: RBC Morphology Normal
[2019-10-08 07:24] LABS: Eosinophils % 0.1 % (0.1-12.0); Hematocrit 41.9 % (37.0-47.0); Hemoglobin 13.7 g/dL (12.2-16.2); Lymphocytes # 0.6 K/mm3 (0.7-4.5); Lymphocytes % 2.2 % (10-50); Mean Corpuscular HGB Conc 32.7 g/dL (31.8-35.4); Mean Corpuscular Volume 99.8 fl (81-99); Monocytes # 1.2 K/mm3 (0.1-1.0); Monocytes % 4.2 % (1.7-9.3); Neutrophils # 26.9 K/mm3 (1.8-7.8); Neutrophils % 93.5 % (37.0-80.0); Platelet Count 212 K/mm3 (142-424); Red Cell Distribution Width 13.8 % (11.5-17.5); White Blood Count 28.8 K/mm3 (4.8-10.8)
[2019-10-08 07:32] LABS: Anion Gap 7.6 mEq/L (5-15); Calcium 7.6 mg/dL (8.5-10.1)
[2019-10-08 07:54] LABS: Anisocytosis 1+; Lymphocytes % 5 % (10-50); Macrocytosis 1+; Monocytes % 2 % (2-9); Neutrophils % 91 % (42-76); Total Cells Counted 100
--- NOTE | 2019-10-08 09:54 | Progress Note ---
Internal Medicine - PN: Subj *Date: 10/08/19 *Time: 09:51 Interval history: looks good - labd reviewed - elevated wbc prob steroids - ct chest reviewed and discussed with pt- low k Exam Vital signs and Labs for Last 24 Hours: Temp Pulse Resp BP Pulse Ox 98.6 F 94 H 12 134/66 95 10/08/19 08:00 10/08/19 08:00 10/08/19 08:00 10/08/19 08:00 10/08/19 08:00 Laboratory Results - last 24 hr 10/07/19 05:34: Total Counted 100, Neutrophils % (Manual) 95 H, Lymphocytes % (Manual) 5 L, Platelet Estimate Normal, RBC Morphology Normal 10/08/19 07:02: WBC 28.8 H* D, RBC 4.20, Hgb 13.7, Hct 41.9, MCV 99.8 H, MCH 32.6 H, MCHC 32.7, RDW 13.8, Plt Count 212, MPV 8.0, Neut % (Auto) 93.5 H, Lymph % (Auto) 2.2 L, [place] % (Auto) 4.2, Eos % (Auto) 0.1, Baso % (Auto) 0.0 L, Neut # (Auto) 26.9 H, Lymph # (Auto) 0.6 L, [place] # (Auto) 1.2 H, Eos # (Auto) 0.0, Baso # (Auto) 0.0, Total Counted 100, Neutrophils % (Manual) 91 H, Band Neutrophils % 2.0, Lymphocytes % (Manual) 5 L, Monocytes % (Manual) 2, Platelet Estimate Normal, Anisocytosis 1+, Macrocytosis 1+ 10/08/19 07:02: Sodium 133 L, Potassium 2.6 L* D, Chloride 93 L, Carbon Dioxide 35 H, Anion Gap 7.6, BUN 15, Creatinine 0.80, Estimated Creat Clear 52, Estimated GFR 73, Est GFR ( Amer) 88, Glucose 193 H, Calcium 7.6 L I & O for Last 24 hours: Intake & Output 10/05/19 10/06/19 10/07/19 10/08/19 11:59 11:59 11:59 11:59 Intake Total 1320 / 1320 1875 Balance 1320 / 1320 1876 / 1876 Weight 125 lb 2 oz 125 lb 10.616 oz Microbiology Reports for the Last 24 Hours: Microbiology 10/06/19 13:00 Sputum - Expectorated Sputum Gram Stain - Final 10/06/19 13:00 Sputum - Expectorated Sputum Sputum Culture - Final Normal Respiratory Mariah - Constitutional no acute distress - *Routine HEENT Exam Head: Present: normocephalic Eye: Present: EOMI, PERRL ENT: Present: mucous membranes dry - *Routine Neck Exam Absent: JVD - *Routine Respiratory Exam Present: decreased breath sounds, prolonged expiratory phase, rhonchi - *Routine Cardiovascular Exam Present: RRR, murmur, S4 - *Routine Abdominal Exam Present: soft - *Routine Extremities Exam Absent: calf tenderness - *Routine Skin Exam Present: intact - *Routine Neurological Exam Present: alert, oriented X3, CN II-XII intact - Routine Psychiatric Exam Present: normal affect Assessment and Plan (1) Pneumonia Current visit: Yes Status: Acute Qualifiers: Pneumonia type: due to unspecified organism Laterality: bilateral Lung location: lower lobe of lung Category: Medical Code(s): J18.9 - Pneumonia, unspecified organism (2) Acute and chronic respiratory failure Current visit: No Status: Acute Qualifiers: Respiratory failure complication: hypoxia and hypercapnia Qualified Code(s): J96.21 - Acute and chronic respiratory failure with hypoxia; J96.22 - Acute and chronic respiratory failure with hypercapnia Category: Medical Code(s): J96.20 - Acute and chronic respiratory failure, unspecified whether with hypoxia or hypercapnia (3) Acute exacerbation of chronic obstructive airways disease Current visit: No Status: Acute Category: Medical Code(s): J44.1 - Chronic obstructive pulmonary disease with (acute) exacerbation (4) History of lung cancer Current visit: No Status: Acute Category: Medical Code(s): Z85.118 - Personal history of other malignant neoplasm of bronchus and lung (5) Hypokalemia Current visit: Yes Status: Acute Category: Medical Code(s): E87.6 - Hypokalemia
[2019-10-08 15:01] LABS: Anion Gap 13.5 mEq/L (5-15); Calcium 7.7 mg/dL (8.5-10.1)
[2019-10-08 15:02] LABS: Vancomycin,Trough 3.6 mcg/ml (10.0-20.0)
--- NOTE | 2019-10-08 19:10 | Electrocardiograph Report ---
APPROVED REPORT Exam: Resting ECG HR:108 bpm ECG Measurements Heart Rate 108 AXES MN 130 P 67 QRSd 78 QRS 46 QT 348 T55 QTc 466 <Conclusion> Sinus tachycardia with premature atrial complexes Otherwise normal ECG Electronically signed by : Keegan Leroy, 10/08/2019 19:09:50
--- NOTE | 2019-10-09 11:40 | Pharmacy Consult Notes ---
- Pharmacy Consult Date: 10/09/19 Time: 11:39 Referring provider: DR. ARVIZU Reason for Consult:: VANCOMYCIN DOSING Allergies and ADEs:: Allergies Allergy/AdvReac Type Severity Reaction Status Date / Time No Known Allergies Allergy Verified 10/06/19 12:33 Home Medications:: Home Medications Medication Instructions Recorded Confirmed Type Albuterol Sulfate [Albuterol HFA 2 puffs PO Q4HP PRN 06/17/19 10/06/19 History Inhaler] Cholecalciferol (Vitamin D3) 1,000 unit PO DAILY 06/17/19 10/06/19 History [Vitamin D3 1,000 Unit Cap] Atorvastatin Calcium [Lipitor 40mg 40 mg PO HS 07/31/19 10/06/19 History Tablet] Ferrous Sulfate 325 mg PO BID 08/01/19 10/06/19 History omeprazole 20 mg capsule,delayed 20 mg PO DAILY #90 cap 08/17/19 10/06/19 Rx release Fluticasone/Umeclidin/Vilanter 1 puff INHALATION DAILY 08/23/19 10/06/19 History [Yuniorlekathy Ellipta 100-62.5-25] Ergocalciferol (Vitamin D2) 50,000 unit PO WEEKLY 09/12/19 10/06/19 History [Drisdol 50,000 units (1.25mg) capsule] buprenorphine 8 mg-naloxone 2 mg 2 tab SUBLINGUAL DAILY tab 09/27/19 10/06/19 History sublingual tablet ipratropium 0.5 mg-albuterol 3 mg 3 ml INHALATION QID PRN #90 ml 09/27/19 10/06/19 Rx (2.5 mg base)/3 mL nebulization soln ipratropium 20 mcg-albuterol 100 2 puffs INHALATION Q4H g 09/27/19 10/06/19 History mcg/actuation mist for inhalation pregabalin 75 mg capsule 75 mg PO BID 30 Days #60 cap 09/27/19 10/06/19 Rx predniSONE [Deltasone 10mg tablet] 10 mg PO BID 10/06/19 10/06/19 History Furosemide [Furosemide 20mg Tab] 20 mg PO DAILY 10/07/19 10/07/19 History Height: 1.57 m Weight: 58.117 kg Laboratory Results:: Laboratory Results - last 24 hr 10/08/19 14:14: Sodium 134 L, Potassium 3.5 D, Chloride 95 L, Carbon Dioxide 29, Anion Gap 13.5, BUN 19 H D, Creatinine 0.85, Estimated Creat Clear 52, Estimated GFR 68, Est GFR ( Amer) 82, Glucose 208 H, Calcium 7.7 L, Vancomycin Trough 3.6 L Medical History: Reports:: Carotid Stenosis, Chronic Obstructive Pulmonary Disease (COPD), Cerebrovascular Accident, Gastroesophageal Reflux Disease(GERD), Hyperlipidemia Denies:: Cancer, Diabetes Mellitus Type 1, Diabetes Mellitus Type 2, Internal Pacemaker, MRSA, Seizures Assessment and Plan (1) Pneumonia Current visit: Yes Status: Acute Qualifiers: Pneumonia type: due to unspecified organism Laterality: bilateral Lung location: lower lobe of lung Category: Medical Code(s): J18.9 - Pneumonia, unspecified organism (2) Acute and chronic respiratory failure Current visit: No Status: Acute Qualifiers: Respiratory failure complication: hypoxia and hypercapnia Qualified Code(s): J96.21 - Acute and chronic respiratory failure with hypoxia; J96.22 - Acute and chronic respiratory failure with hypercapnia Category: Medical Code(s): J96.20 - Acute and chronic respiratory failure, unspecified whether with hypoxia or hypercapnia (3) Acute exacerbation of chronic obstructive airways disease Current visit: No Status: Acute Category: Medical Code(s): J44.1 - Chronic obstructive pulmonary disease with (acute) exacerbation (4) History of lung cancer Current visit: No Status: Acute Category: Medical Code(s): Z85.118 - Personal history of other malignant neoplasm of bronchus and lung (5) Hypokalemia Current visit: Yes Status: Acute Category: Medical Code(s): E87.6 - Hypokalemia - Assessment and plan all Dx Assessment and Plan for all problems:: BASED ON VANCOMYCIN TROUGH LEVEL OF 3.6 MCG/ML, RECOMMEND CHANGING DOSING INTERVAL OF VANCOMYCIN 1 GM TO Q12H HOURS. WILL OBTAIN TROUGH LEVEL ON 10/10/19.
[2019-10-09 12:01] VITALS: BP 143/79
--- NOTE | 2019-10-09 14:05 | Discharge Summary ---
General - General Admission date:: 10/06/19 Discharge date: 10/09/19 HPI HPI: 64 yr old female presented to ed for evaluation stating Patient had ct outpt and showed pneumonia. Patient has stage IV COPD. She states she has chronic shortness of breath and chronic cough. pt admitted for acute on chronic resp failure due to copd. Hospital Course Hospital Course: pt with known o2 dep copd and was seen by pulmonary med at and has progressive resp sx and was seen in the ed and admitted - she has abn but stable ct and has did well with ivf and abx - pt will continue on meds and see pcp and pul as op - pt was tami diet and activity prior to d/c Objective Vital signs: Temp Pulse Resp BP Pulse Ox 97.9 F 104 H 22 143/79 H 95 10/09/19 12:00 10/09/19 13:53 10/09/19 12:00 10/09/19 12:00 10/09/19 12:00 no acute distress - *Routine HEENT Exam Head: Present: normocephalic Eye: Present: EOMI, PERRL ENT: Present: mucous membranes dry - *Routine Neck Exam Present: supple. Absent: JVD - *Routine Respiratory Exam Present: decreased breath sounds, prolonged expiratory phase, wheezes - *Routine Cardiovascular Exam Present: RRR, murmur, S4 - *Routine Abdominal Exam Present: soft - *Routine Extremities Exam Absent: calf tenderness - *Routine Skin Exam Present: intact - *Routine Neurological Exam Present: alert, oriented X3, CN II-XII intact - Routine Psychiatric Exam Present: normal affect Results Labs on day of discharge: Labs from last 24 hours 10/08/19 14:14 Sodium 134 L Potassium 3.5 D Chloride 95 L Carbon Dioxide 29 Anion Gap 13.5 BUN 19 H D Creatinine 0.85 Estimated Creat Clear 52 Estimated GFR 68 Est GFR ( Amer) 82 Glucose 208 H Calcium 7.7 L Vancomycin Trough 3.6 L Preliminary micro results at discharge 10/06/19 12:43 Blood Culture - Preliminary Blood NO GROWTH AFTER 48 HOURS 10/06/19 12:43 Blood Culture - Preliminary Blood NO GROWTH AFTER 48 HOURS DS: Diagnosis - Discharge Diagnosis (1) Pneumonia Status: Acute (2) Acute and chronic respiratory failure Status: Acute (3) Acute exacerbation of chronic obstructive airways disease Status: Acute (4) History of lung cancer Status: Acute (5) Hypokalemia Status: Acute (6) Severe sepsis with acute organ dysfunction Status: Acute (7) Pulmonary mass Status: Acute (8) Pneumonitis Status: Acute (9) History of rib fracture Status: Acute Discharge Plan - Patient Discharge Instructions ACTIVITY: Continue current activity DIET: continue same diet Patient Instructions: Pneumonia-Adult - Follow up Plan Follow up with: Bridger Aguilar MD [Primary Care Provider] - Disposition: Home, Self-Skilled Nursing Medications: Home Medications Medication Instructions Recorded Confirmed Type Albuterol Sulfate [Albuterol HFA 2 puffs PO Q4HP PRN 06/17/19 10/06/19 History Inhaler] Cholecalciferol (Vitamin D3) 1,000 unit PO DAILY 06/17/19 10/06/19 History [Vitamin D3 1,000 Unit Cap] Atorvastatin Calcium [Lipitor 40mg 40 mg PO HS 07/31/19 10/06/19 History Tablet] Ferrous Sulfate 325 mg PO BID 08/01/19 10/06/19 History omeprazole 20 mg capsule,delayed 20 mg PO DAILY #90 cap 08/17/19 10/06/19 Rx release Fluticasone/Umeclidin/Vilanter 1 puff INHALATION DAILY 08/23/19 10/06/19 History [Trelegy Ellipta 100-62.5-25] Ergocalciferol (Vitamin D2) 50,000 unit PO WEEKLY 09/12/19 10/06/19 History [Drisdol 50,000 units (1.25mg) capsule] buprenorphine 8 mg-naloxone 2 mg 2 tab SUBLINGUAL DAILY tab 09/27/19 10/06/19 History sublingual tablet ipratropium 0.5 mg-albuterol 3 mg 3 ml INHALATION QID PRN #90 ml 09/27/19 10/06/19 Rx (2.5 mg base)/3 mL nebulization soln ipratropium 20 mcg-albuterol 100 2 puffs INHALATION Q4H g 09/27/19 10/06/19 History mcg/actuation mist for inhalation pregabalin 75 mg capsule 75 mg PO BID 30 Days #60 cap 09/27/19 10/06/19 Rx predniSONE [Deltasone 10mg tablet] 10 mg PO BID 10/06/19 10/06/19 History Furosemide [Furosemide 20mg Tab] 20 mg PO DAILY 10/07/19 10/07/19 History Azithromycin [Zithromax 250mg 250 mg PO DIRECTED #6 tab 10/09/19 Rx tab] Prescriptions/Medication Reconciliation: New Azithromycin [Zithromax 250mg tab] 250 mg PO DIRECTED #6 tab Continued omeprazole 20 mg capsule,delayed release 20 mg PO DAILY #90 cap buprenorphine 8 mg-naloxone 2 mg sublingual tablet 2 tab SUBLINGUAL DAILY tab ipratropium 20 mcg-albuterol 100 mcg/actuation mist for inhalation 2 puffs INHALATION Q4H g pregabalin 75 mg capsule 75 mg PO BID 30 Days #60 cap ipratropium 0.5 mg-albuterol 3 mg (2.5 mg base)/3 mL nebulization soln 3 ml INHALATION QID PRN #90 ml PRN Reason: shortness of breath Cholecalciferol (Vitamin D3) [Vitamin D3 1,000 Unit Cap] 1,000 unit PO DAILY Albuterol Sulfate [Albuterol HFA Inhaler] 2 puffs PO Q4HP PRN PRN Reason: Shortness Of Breath Or Wheezing Atorvastatin Calcium [Lipitor 40mg Tablet] 40 mg PO HS predniSONE [Deltasone 10mg tablet] 10 mg PO BID Ferrous Sulfate 325 mg PO BID Fluticasone/Umeclidin/Vilanter [Trelegy Ellipta 100-62.5-25] 1 puff INHALATION DAILY Ergocalciferol (Vitamin D2) [Drisdol 50,000 units (1.25mg) capsule] 50,000 unit PO WEEKLY Furosemide [Furosemide 20mg Tab] 20 mg PO DAILY - Problem Reconciliation Problems Reviewed?: Yes
== END 2019-10-09 14:43 | disposition home or self-care (01) ==
LOC: 2ND 12:11 → ER 12:11 → 2ND 13:45
PROVIDERS: ADMIT Emergency Medicine; ATTEND Emergency Medicine
CPT/HCPCS: 36415; 71010; 71045; 71260; 80048; 80053; 80202; 82803; 83605; 84484; 85007; 85025; 87040; 87070; 87205; 87275; 87276; 93005; 94640; 94761; 96365; 96375; 99285; G0378; J0571; J1335; J3370; Q9967

== ENCOUNTER 2019-10-18 19:41 | Observation (INO) ==
[2019-10-18 20:20] LABS: Basophils # 0.3 K/mm3 (0-0.2); Basophils % 1.9 % (0.1-2.0); Eosinophils # 0.1 K/mm3 (0.0-0.4); Eosinophils % 0.5 % (0.1-12.0); Hematocrit 41.9 % (37.0-47.0); Hemoglobin 13.7 g/dL (12.2-16.2); Lymphocytes # 1.4 K/mm3 (0.7-4.5); Lymphocytes % 10.1 % (10-50); Mean Corpuscular HGB Conc 32.8 g/dL (31.8-35.4); Mean Corpuscular Volume 98.8 fl (81-99); Monocytes # 2.4 K/mm3 (0.1-1.0); Monocytes % 17.8 % (1.7-9.3); Neutrophils # 9.3 K/mm3 (1.8-7.8); Neutrophils % 69.7 % (37.0-80.0); Platelet Count 182 K/mm3 (142-424); Red Blood Count 4.24 M/mm3 (4.20-5.40); White Blood Count 13.3 K/mm3 (4.8-10.8)
[2019-10-18 20:37] LABS: Anion Gap 8.3 mEq/L (5-15); Calcium 8.9 mg/dL (8.5-10.1)
--- NOTE | 2019-10-18 20:37 | Emergency Department Note ---
ED Disposition Clinical Impression: Acute exacerbation of chronic obstructive airways disease, SIRS (systemic inflammatory response syndrome) Disposition: Admitted as Observation Condition on Discharge: Fair - Critical Care Critical Care Time: No Attestation: On 10/18/19, the high probability of a clinically significant, sudden or life threatening deterioration of the following system(s) required my full and direct attention, intervention and personal management. The time I documented below is in addition to time spent performing reported procedures but includes the following listed in this critical care notation. Medical Decision Making - Medical Records Medical records reviewed: Yes: I reviewed the patient's medical records. - Neftali Inquiry Pt receiving controlled substance: No Vital Signs: 10/18/19 20:02 10/18/19 20:40 10/18/19 21:55 Temperature 98.9 F Temperature Source Oral Pulse Rate 88 Pulse Rate [Left Brachial] 104 H 94 H Respiratory Rate 20 24 Blood Pressure [Left Arm] 147/77 H 118/74 Blood Pressure Mean [Left Arm] 100 88 Blood Pressure Source [Left Arm] Automatic Cuff Blood Pressure Position [Left Arm] Sitting 02 Sat by Pulse Oximetry 93 L 93 L Oxygen Delivery Method Nasal Cannula Nasal Cannula Oxygen Flow Rate (LPM) 3 3 10/18/19 21:56 Temperature Temperature Source Pulse Rate 89 Pulse Rate [Left Brachial] Respiratory Rate Blood Pressure [Left Arm] Blood Pressure Mean [Left Arm] Blood Pressure Source [Left Arm] Blood Pressure Position [Left Arm] 02 Sat by Pulse Oximetry Oxygen Delivery Method Oxygen Flow Rate (LPM) - Lab Data Lab results reviewed: Yes: I reviewed the patient's lab results. Lab Results 10/18/19 20:05: Troponin I 0.03 10/18/19 20:05: WBC 13.3 H, RBC 4.24, Hgb 13.7, Hct 41.9, MCV 98.8, MCH 32.4 H, MCHC 32.8, RDW 14.0, Plt Count 182, MPV 8.0, Neut % (Auto) 69.7, Lymph % (Auto) 10.1, [place] % (Auto) 17.8 H, Eos % (Auto) 0.5, Baso % (Auto) 1.9, Neut # (Auto) 9.3 H, Lymph # (Auto) 1.4, [place] # (Auto) 2.4 H, Eos # (Auto) 0.1, Baso # (Auto) 0.3 H 10/18/19 20:05: Sodium 140, Potassium 4.3, Chloride 96 L, Carbon Dioxide 40 H, Anion Gap 8.3, BUN 10, Creatinine 0.63, Estimated Creat Clear 54, Estimated GFR 96, Est GFR ( Amer) 116, Glucose 111 H, Calcium 8.9 10/18/19 20:05: Lactate 1.0 10/18/19 20:05: ESR 16 10/18/19 20:05: C-Reactive Protein 2.6 H 10/18/19 20:58: Specimen Source R/r, O2 % 3, ABG pH 7.33 L, ABG pCO2 77.2 H, ABG pO2 72.7 L, ABG HCO3 39.8 H, ABG Total CO2 42.2 H, ABG O2 Saturation 93, ABG Base Excess 13.9 H, Gregg Test Y Result diagrams: 10/18/19 20:05 10/18/19 20:05 Orders (Tests/Meds): ED MEDICATIONS Generic Name Dose Route Start Last Admin Trade Name Freq PRN Reason Stop Dose Admin Acetylcysteine 2 ml 10/19/19 06:00 Mucomyst 20% 4ml Vial 11/18/19 05:59 TIDRT [facility] Levofloxacin/Dextrose 500 mg in 100 mls @ 100 mls/hr 10/18/19 21:30 10/18/19 21:36 Levaquin 500mg/100ml Premix IV 11/01/19 21:29 100 mls/hr Q24H [facility] Administration Protocol Levalbuterol HCl 1.25 mg 10/19/19 06:00 Xopenex 1.25mg/3ml [facility] 11/18/19 05:59 TIDRT MILI Sodium Chloride 3 ml 10/18/19 20:36 Sodium Chloride 3% 15ml [facility] 11/17/19 20:35 ONCE PRN INDUCE SPUTUM [employer]LECTION Discontinued Medications Generic Name Dose Route Start Last Admin Trade Name Freq PRN Reason Stop Dose Admin Methylprednisolone Sodium Succinate 125 mg 10/18/19 20:35 10/18/19 20:37 Solu-Medrol 125mg/2ml Vial IV 10/18/19 20:36 125 mg ONCE ONE Administration ORDERS Category Date Time Status XR chest portable Stat Exams 10/18/19 20:10 Taken Troponin I Q3H Lab 10/18/19 23:15 Ordered Troponin I Q3H Lab 10/19/19 02:15 Ordered Blood Culture Stat Micro 10/18/19 20:05 Received Sputum Culture & Gram Stain Stat Micro 10/18/19 20:42 Results ABG [Arterial Blood Gas] Stat RT 10/18/19 20:35 Ordered - Radiology Data #1 Image(s): Chest Image Reviewed: Yes I reviewed the patient's radiology image Preliminary Findings: Abnormal (nonspecific) - ECG Data Tracing #1 Normal Sinus Rhythm: Yes Ischemic changes: non-specific ST-T wave changes Resp/SOB HPI - General Chief Complaint: Shortness of Breath/Dyspnea Stated Complaint: Difficulty breathing Time Seen by Provider: 10/18/19 20:10 Mode of Arrival: Wheelchair Source of Information: Patient, Relative, Medical Record Limitations: No Limitations Description of Symptoms (Recalled from ER Triage Doc. by RN): Patient reports SOA. Patient is on 3l at home but was unable to get relief. - History of Present Illness this wf with hx of o2 dep copd and was admitted for excerbation with ct chest showing stable changes - pt over the last few days inc sx despite at home o2 and treatments - MD Complaint: shortness of breath, cough Onset (ago): day(s) Severity: similar to previous episodes Known history of: COPD Associated symptoms: cough Treatment prior to arrival: oxygen, bronchodilator - Related Data Home oxygen amount: 3 liters Home Medications Medication Instructions Recorded Confirmed Albuterol Sulfate [Albuterol HFA 2 puffs PO Q4HP PRN 06/17/19 10/18/19 Inhaler] Cholecalciferol (Vitamin D3) 1,000 unit PO DAILY 06/17/19 10/18/19 [Vitamin D3 1,000 Unit Cap] Atorvastatin Calcium [Lipitor 40mg 40 mg PO HS 07/31/19 10/18/19 Tablet] Fluticasone/Umeclidin/Vilanter 1 puff INHALATION DAILY 08/23/19 10/18/19 [Trelegy Ellipta 100-62.5-25] Ergocalciferol (Vitamin D2) 50,000 unit PO WEEKLY 09/12/19 10/18/19 [Drisdol 50,000 units (1.25mg) capsule] ipratropium 20 mcg-albuterol 100 2 puffs INHALATION Q4H g 09/27/19 10/18/19 mcg/actuation mist for inhalation Azithromycin [Zithromax 250mg 250 mg PO DIRECTED 10/18/19 10/18/19 tab] Previous Rx's Medication Instructions Recorded omeprazole 20 mg capsule,delayed 20 mg PO DAILY #90 cap 08/17/19 release ipratropium 0.5 mg-albuterol 3 mg 3 ml INHALATION QID PRN #90 ml 09/27/19 (2.5 mg base)/3 mL nebulization soln pregabalin 75 mg capsule 75 mg PO BID 30 Days #60 cap 09/27/19 ferrous sulfate 325 mg (65 mg 325 mg PO BID #60 tab 10/17/19 iron) tablet Allergies Allergy/AdvReac Type Severity Reaction Status Date / Time No Known Allergies Allergy Verified 10/06/19 12:33 [facility] History - Hepatitis A Screen Drug use history?: No High risk sexual behaviors?: No History of sexually transmitted infection?: No Currently employed?: No Childcare worker?: No Do you have indoor plumbing?: Yes Do you have electricity?: Yes Attestation statement:: This patient has been screened for Hepatitis A risk factors. I have reviewed the patient's past medical history: Yes Medical History: Reports:: Carotid Stenosis, Chronic Obstructive Pulmonary Disease (COPD), Cerebrovascular Accident, Gastroesophageal Reflux Disease(GERD), Hyperlipidemia Denies:: Cancer, Diabetes Mellitus Type 1, Diabetes Mellitus Type 2, Internal Pacemaker, MRSA, Seizures Other Medical History: Reports: Anemia, Cataracts Laterality Cases: Bilateral: Tonsillectomy, Other Other Surgeries: Yes: Hysterectomy-Total, Hysterectomy-Partial, Other. No: Pacemaker Amputation: No Fractures: No Comment: Cartoid artery - Social History Smoking Status: Former smoker Tobacco Type: cigarettes # Packs/Day (cigarettes): 1 #Yrs smoked (if former smoker): 45 Alcohol Intake: never Alcohol Intake Frequency:: other Substance Use Type: opiates, painkillers Occupational Status: retired Housing: house Household Members: spouse, family Family Hx:: No significant family history ROS Obtained: Yes All systems reviewed & no additional complaints - Constitutional Constitutional: Denies fever(s) - Eyes Eyes: Denies change in vision - ENT Ears, Nose, Mouth, and Throat: Denies sore throat - Cardiovascular Cardiovascular: Denies chest pain - Respiratory Respiratory: Yes as per HPI, Yes cough, Yes non-productive cough, No coughing up blood - Gastrointestinal Gastrointestingal: Denies: vomiting - Genitourinary Female Genitourinary: Denies hematuria - Musculoskeletal Musculoskeletal: Denies joint swelling - Integumentary/Breasts Skin/Breast: Denies rash - Neurologic Neurologic: Denies convulsions, Denies focal weakness Physical Exam - General General appearance: alert - Head Head exam: normocephalic - Eye Eye exam: Present: PERRL, EOMI. Absent: scleral icterus - ENT ENT exam: Present: mucous membranes dry - Neck Neck exam: Present: trachea midline - Respiratory Respiratory exam: Present: wheezes. Absent: respiratory distress - Cardiovascular Cardiovascular exam: Present: regular rate, systolic murmur, +S4 - Abdominal Exam Abdominal exam: Present: soft - Extremities Exam Extremities exam: Absent: calf tenderness - Neurological Exam Neurological exam: Present: alert, CN II-XII intact - Psychiatric Psychiatric exam: Present: normal affect - Skin Skin exam: Absent: rash
[2019-10-18 20:59] LABS: ABG Base Excess 13.9 mmol/L (-2.4-2.3); ABG HCO3 39.8 mmhg (22.0-26.0); ABG Oxygen Saturation 93 % (90-100); ABG PH 7.33 mmol/L (7.35-7.45); ABG PO2 72.7 mmhg (80-100); ABG TCO2 42.2 mmhg (23-27); Allen's Test Y; Oxygen 3 %
[2019-10-18 21:01] LABS: ABG PCO2 77.2 mmhg (35.0-45.0)
--- NOTE | 2019-10-19 07:28 | Pharmacy Consult Notes ---
[facility] VTE Monitoring - Patient Demographics Admission date: 10/18/19 Report Date: 10/19/19 Time: 07:27 Allergies/Adverse Reactions: Patient Allergies No Known Allergies Allergy (Verified 10/06/19 12:33) Height: 1.57 m Weight: 58.202 kg Patient Problems: Current Active Problems SIRS (systemic inflammatory response syndrome) (Acute) Acute exacerbation of chronic obstructive airways disease (Acute) - VTE Risk Labs: VTE Related Lab Results Hgb 13.7 g/dL (12.2-16.2) 10/18/19 20:05 Hct 41.9 % (37.0-47.0) 10/18/19 20:05 Plt Count 182 K/mm3 (142-424) 10/18/19 20:05 BUN 10 mg/dL (7-18) 10/18/19 20:05 Creatinine 0.63 mg/dL (0.55-1.02) 10/18/19 20:05 Estimated Creat Clear 54 mL/min (50-200) 10/18/19 20:05 VTE Score: 9 VTE Risk Level: Moderate Risk - Prophylaxis VTE Prophylaxis Ordered?: Yes Types of VTE Prophylaxis: TEDS Knee High Location of Applied Device: Bilateral Lower Extremeties
[2019-10-19 08:26] LABS: Basophils % 0.2 % (0.1-2.0); Eosinophils % 0.1 % (0.1-12.0); Hematocrit 40.7 % (37.0-47.0); Hemoglobin 13.3 g/dL (12.2-16.2); Lymphocytes # 0.2 K/mm3 (0.7-4.5); Lymphocytes % 2.8 % (10-50); Mean Corpuscular HGB Conc 32.6 g/dL (31.8-35.4); Mean Corpuscular Volume 99.3 fl (81-99); Mean Platelet Volume 8.5 fl (7.4-10.4); Monocytes # 0.3 K/mm3 (0.1-1.0); Monocytes % 3.3 % (1.7-9.3); Neutrophils # 7.9 K/mm3 (1.8-7.8); Neutrophils % 93.5 % (37.0-80.0); Platelet Count 185 K/mm3 (142-424); Red Cell Distribution Width 13.8 % (11.5-17.5); White Blood Count 8.5 K/mm3 (4.8-10.8)
[2019-10-19 08:29] LABS: Anion Gap 4.7 mEq/L (5-15); Calcium 8.5 mg/dL (8.5-10.1)
--- NOTE | 2019-10-19 09:38 | History & Physical Report ---
*Admission Date: 10/18/19 *Chief complaint: Shotness of Breath *History of present illness: 64-year-old female patient sitting up in bed on Vapotherm, reports she is feeling better this wf with hx of o2 dep copd and was admitted for excerbation with ct chest showing stable changes - pt over the last few days inc sx despite at home o2 and treatments (Per Dr. Aguilar) 10/19/2019 CXR: IMPRESSION: Overall no significant change in the cardiomegaly, right perihilar mass/consolidation and chronic changes in the right upper lobe laterally Dictated by: Dr. Murray, [facility] History Medical History: Reports:: Carotid Stenosis, Chronic Obstructive Pulmonary Disease (COPD), Cerebrovascular Accident, Gastroesophageal Reflux Disease(GERD), Hyperlipidemia Denies:: Cancer, Diabetes Mellitus Type 1, Diabetes Mellitus Type 2, Internal Pacemaker, MRSA, Seizures *Have you ever received a pneumonia vaccine?: No *Have you received a flu vaccine this season?: No Other Medical History: Reports: Anemia, Cataracts Laterality Cases: Bilateral: Tonsillectomy, Other Other Surgeries: Yes: Hysterectomy-Total, Hysterectomy-Partial, Other. No: Pacemaker Amputation: No Fractures: No - *Social History Smoking Status: Former smoker Tobacco Type: cigarettes # Packs/Day (cigarettes): 1 #Yrs smoked (if former smoker): 45 Alcohol Intake: never Alcohol Intake Frequency:: other Substance Use Type: opiates, painkillers *Occupational Status:: retired Housing: house Household Members: spouse, family *Travel in the last 8 weeks: None Family Hx:: No significant family history Review of Systems - Review of Systems Review of systems:: pertinent systems reviewed and negative unless documented below - Constitutional Reports fatigue, Reports lack of energy, Reports weakness - Eyes Denies change in vision, Denies loss of vision - ENT Denies difficulty swallowing, Denies sinus pain - *Cardiovascular Reports shortness of breath, Reports foot swelling, Denies chest pain - *Respiratory Reports chest congestion, Reports cough, Reports shortness of breath - *Gastrointestinal Denies abdominal pain, Denies constipation - *Musculoskeletal Denies joint pain, Denies body aches - Integumentary/Breasts Denies rash, Denies wounds - *Neurologic Denies seizure-like activity, Denies localized weakness - Psychiatric Denies lack of enjoyment, Denies hearing things others do not hear - Endocrine Denies cold intolerance, Denies heat intolerance - Hematologic/Lymphatic Reports easy bruising, Denies easy bleeding - Allergic/Immunologic Denies GI upset with certain foods, Denies throat swelling Meds Home Medications Medication Instructions Recorded Confirmed Type Albuterol Sulfate [Albuterol HFA 2 puffs PO Q4HP PRN 06/17/19 10/18/19 History Inhaler] Cholecalciferol (Vitamin D3) 1,000 unit PO DAILY 06/17/19 10/18/19 History [Vitamin D3 1,000 Unit Cap] Atorvastatin Calcium [Lipitor 40mg 40 mg PO HS 07/31/19 10/18/19 History Tablet] omeprazole 20 mg capsule,delayed 20 mg PO DAILY #90 cap 08/17/19 10/18/19 Rx release Fluticasone/Umeclidin/Vilanter 1 puff INHALATION DAILY 08/23/19 10/18/19 History [Trelekathy Ellipta 100-62.5-25] Ergocalciferol (Vitamin D2) 50,000 unit PO WEEKLY 09/12/19 10/18/19 History [Drisdol 50,000 units (1.25mg) capsule] ipratropium 0.5 mg-albuterol 3 mg 3 ml INHALATION QID PRN #90 ml 09/27/19 10/18/19 Rx (2.5 mg base)/3 mL nebulization soln ipratropium 20 mcg-albuterol 100 2 puffs INHALATION Q4H g 09/27/19 10/18/19 History mcg/actuation mist for inhalation pregabalin 75 mg capsule 75 mg PO BID 30 Days #60 cap 09/27/19 10/18/19 Rx ferrous sulfate 325 mg (65 mg 325 mg PO BID #60 tab 10/17/19 10/18/19 Rx iron) tablet Buprenorphine HCl/Naloxone HCl 2 tab SL DAILY 10/19/19 10/19/19 History [Suboxone 8 mg-2 mg Sl Film] Allergies Allergy/AdvReac Type Severity Reaction Status Date / Time No Known Allergies Allergy Verified 10/06/19 12:33 Exam Vital signs and Labs for Last 24 Hours: Temp Pulse Resp BP Pulse Ox 98.9 F 100 H 18 148/71 H 90 L 10/19/19 08:00 10/19/19 08:00 10/19/19 08:00 10/19/19 08:00 10/19/19 08:00 Laboratory Results - last 24 hr 10/18/19 20:05: Troponin I 0.03 10/18/19 20:05: WBC 13.3 H, RBC 4.24, Hgb 13.7, Hct 41.9, MCV 98.8, MCH 32.4 H, MCHC 32.8, RDW 14.0, Plt Count 182, MPV 8.0, Neut % (Auto) 69.7, Lymph % (Auto) 10.1, [place] % (Auto) 17.8 H, Eos % (Auto) 0.5, Baso % (Auto) 1.9, Neut # (Auto) 9.3 H, Lymph # (Auto) 1.4, [place] # (Auto) 2.4 H, Eos # (Auto) 0.1, Baso # (Auto) 0.3 H 10/18/19 20:05: Sodium 140, Potassium 4.3, Chloride 96 L, Carbon Dioxide 40 H, Anion Gap 8.3, BUN 10, Creatinine 0.63, Estimated Creat Clear 54, Estimated GFR 96, Est GFR ( Amer) 116, Glucose 111 H, Calcium 8.9 10/18/19 20:05: Lactate 1.0 10/18/19 20:05: ESR 16 10/18/19 20:05: C-Reactive Protein 2.6 H 10/18/19 20:05: Magnesium 1.4 10/18/19 20:58: Specimen Source R/r, O2 % 3, ABG pH 7.33 L, ABG pCO2 77.2 H, ABG pO2 72.7 L, ABG HCO3 39.8 H, ABG Total CO2 42.2 H, ABG O2 Saturation 93, ABG Base Excess 13.9 H, Gregg Test Y 10/18/19 23:15: Troponin I 0.03 10/19/19 02:50: Troponin I < 0.02 10/19/19 08:10: WBC 8.5 D, RBC 4.10 L, Hgb 13.3, Hct 40.7, MCV 99.3 H, MCH 32.4 H, MCHC 32.6, RDW 13.8, Plt Count 185, MPV 8.5, Neut % (Auto) 93.5 H, Lymph % (Auto) 2.8 L, [place] % (Auto) 3.3, Eos % (Auto) 0.1, Baso % (Auto) 0.2, Neut # (Auto) 7.9 H, Lymph # (Auto) 0.2 L, [place] # (Auto) 0.3, Eos # (Auto) 0.0, Baso # (Auto) 0.0 10/19/19 08:10: Sodium 134 L, Potassium 4.7, Chloride 95 L, Carbon Dioxide 39 H, Anion Gap 4.7 L, BUN 12, Creatinine 0.81 D, Estimated Creat Clear 54, Estimated GFR 72, Est GFR ( Amer) 87 D, Glucose 245 H D, Calcium 8.5 I & O for Last 24 hours: Intake & Output 10/16/19 10/17/19 10/18/19 10/19/19 23:59 23:59 23:59 23:59 Intake Total 150 / 467 317 / 317 Balance 150 / 467 317 / 317 Weight 128 lb 5 oz 128 lb 5.015 oz Microbiology Reports for the Last 24 Hours: Microbiology 10/18/19 20:42 Sputum - Expectorated Sputum Gram Stain - Final - Constitutional no acute distress, chronically ill appearing - *Routine HEENT Exam Head: Present: cushingoid faces Eye: Present: EOMI, PERRL, normal accommodation ENT: Present: mucous membranes dry - *Routine Neck Exam Present: supple, full ROM, trachea midline. Absent: JVD, tracheal deviation - *Routine Respiratory Exam Present: accessory muscle use, rhonchi, wheezes - *Routine Cardiovascular Exam Present: RRR - *Routine Abdominal Exam Present: soft, normoactive bowel sounds. Absent: tenderness, firm - *Routine Extremities Exam Present: edema, full ROM, pulses intact. Absent: calf tenderness Comments: Sl Bilat Pedal Edema - Routine Back/Spine/Pelvis Exam Back/Spine: Present: full ROM. Absent: CVA tenderness - *Routine Skin Exam Present: intact. Absent: erythema - *Routine Neurological Exam Present: alert, oriented X3, CN II-XII intact. Absent: pronator drift - Routine Psychiatric Exam Present: normal affect, normal thought process. Absent: visual hallucinations, tactile hallucinations Assessment and Plan (1) Acute and chronic respiratory failure Current visit: No Status: Acute Qualifiers: Respiratory failure complication: hypoxia and hypercapnia Qualified Code(s): J96.21 - Acute and chronic respiratory failure with hypoxia; J96.22 - Acute and chronic respiratory failure with hypercapnia Category: Medical Code(s): J96.20 - Acute and chronic respiratory failure, unspecified whether with hypoxia or hypercapnia (2) COPD (chronic obstructive pulmonary disease) Current visit: No Status: Acute Qualifiers: COPD type: COPD with acute exacerbation Qualified Code(s): J44.1 - Chronic obstructive pulmonary disease with (acute) exacerbation Category: Medical Code(s): J44.9 - Chronic obstructive pulmonary disease, unspecified (3) SIRS (systemic inflammatory response syndrome) Current visit: Yes Status: Acute Category: Medical Code(s): R65.10 - Systemic inflammatory response syndrome (SIRS) of non-infectious origin without acute organ dysfunction (4) COPD with exacerbation Current visit: No Status: Acute Category: Medical Code(s): J44.1 - Chronic obstructive pulmonary disease with (acute) exacerbation - Assessment and plan all Dx Assessment and Plan for all problems:: Rounded with Dr. Aguilar, all orders per Dr. Aguilar 1. Patient needs volume ventilation to treat respiratory failure; higher pressures on bilevel Pap vision device will not adequately treat patient 2. Will get ABG on 3L N/C 3. Pulm Consult
[2019-10-19 11:16] LABS: Lymphocytes % 4 % (10-50); Monocytes % 2 % (2-9); Neutrophils % 94 % (42-76); Total Cells Counted 100
[2019-10-19 11:18] LABS: RBC Morphology Normal
[2019-10-19 11:45] LABS: ABG Base Excess 13.4 mmol/L (-2.4-2.3); ABG HCO3 39.3 mmhg (22.0-26.0); ABG Oxygen Saturation 93 % (90-100); ABG PH 7.33 mmol/L (7.35-7.45); ABG PO2 72.7 mmhg (80-100); ABG TCO2 41.7 mmhg (23-27)
[2019-10-19 11:49] LABS: Allen's Test Acceptable; Oxygen 3L NC %
[2019-10-19 11:51] LABS: ABG PCO2 76.7 mmhg (35.0-45.0)
[2019-10-20 12:50] VITALS: BP 169/79
--- NOTE | 2019-10-20 15:17 | Discharge Summary ---
General - General Admission date:: 10/18/19 Discharge date: 10/20/19 HPI HPI: 64-year-old female patient sitting up in bed on Vapotherm, reports she is feeling better this wf with hx of o2 dep copd and was admitted for excerbation with ct chest showing stable changes - pt over the last few days inc sx despite at home o2 and treatments (Per Dr. Aguilar) 10/19/2019 CXR: IMPRESSION: Overall no significant change in the cardiomegaly, right perihilar mass/consolidation and chronic changes in the right upper lobe laterally Dictated by: Dr. Murray, Hospital Course Hospital Course: copd- steroids, antibiotics,nebs pulmonary consult- see note- states ok to dc Laboratory Results - last 72 hr 10/18/19 10/18/19 10/18/19 20:05 20:05 20:05 WBC 13.3 H RBC 4.24 Hgb 13.7 Hct 41.9 MCV 98.8 MCH 32.4 H MCHC 32.8 RDW 14.0 Plt Count 182 MPV 8.0 Neut % (Auto) 69.7 Lymph % (Auto) 10.1 [place] % (Auto) 17.8 H Eos % (Auto) 0.5 Baso % (Auto) 1.9 Neut # (Auto) 9.3 H Lymph # (Auto) 1.4 [place] # (Auto) 2.4 H Eos # (Auto) 0.1 Baso # (Auto) 0.3 H Total Counted Neutrophils % (Manual) Lymphocytes % (Manual) Monocytes % (Manual) Platelet Estimate RBC Morphology ESR Specimen Source O2 % ABG pH ABG pCO2 ABG pO2 ABG HCO3 ABG Total CO2 ABG O2 Saturation ABG Base Excess Gregg Test Sodium 140 Potassium 4.3 Chloride 96 L Carbon Dioxide 40 H Anion Gap 8.3 BUN 10 Creatinine 0.63 Estimated Creat Clear 54 Estimated GFR 96 Est GFR ( Amer) 116 Glucose 111 H Lactate Calcium 8.9 Magnesium Troponin I 0.03 C-Reactive Protein 10/18/19 10/18/19 10/18/19 20:05 20:05 20:05 WBC RBC Hgb Hct MCV MCH MCHC RDW Plt Count MPV Neut % (Auto) Lymph % (Auto) [place] % (Auto) Eos % (Auto) Baso % (Auto) Neut # (Auto) Lymph # (Auto) [place] # (Auto) Eos # (Auto) Baso # (Auto) Total Counted Neutrophils % (Manual) Lymphocytes % (Manual) Monocytes % (Manual) Platelet Estimate RBC Morphology ESR 16 Specimen Source O2 % ABG pH ABG pCO2 ABG pO2 ABG HCO3 ABG Total CO2 ABG O2 Saturation ABG Base Excess Gregg Test Sodium Potassium Chloride Carbon Dioxide Anion Gap BUN Creatinine Estimated Creat Clear Estimated GFR Est GFR ( Amer) Glucose Lactate 1.0 Calcium Magnesium Troponin I C-Reactive Protein 2.6 H 10/18/19 10/18/19 10/18/19 20:05 20:58 23:15 WBC RBC Hgb Hct MCV MCH MCHC RDW Plt Count MPV Neut % (Auto) Lymph % (Auto) [place] % (Auto) Eos % (Auto) Baso % (Auto) Neut # (Auto) Lymph # (Auto) [place] # (Auto) Eos # (Auto) Baso # (Auto) Total Counted Neutrophils % (Manual) Lymphocytes % (Manual) Monocytes % (Manual) Platelet Estimate RBC Morphology ESR Specimen Source R/r O2 % 3 ABG pH 7.33 L ABG pCO2 77.2 H ABG pO2 72.7 L ABG HCO3 39.8 H ABG Total CO2 42.2 H ABG O2 Saturation 93 ABG Base Excess 13.9 H Gregg Test Y Sodium Potassium Chloride Carbon Dioxide Anion Gap BUN Creatinine Estimated Creat Clear Estimated GFR Est GFR ( Amer) Glucose Lactate Calcium Magnesium 1.4 Troponin I 0.03 C-Reactive Protein 10/19/19 10/19/19 10/19/19 02:50 08:10 08:10 WBC 8.5 D RBC 4.10 L Hgb 13.3 Hct 40.7 MCV 99.3 H MCH 32.4 H MCHC 32.6 RDW 13.8 Plt Count 185 MPV 8.5 Neut % (Auto) 93.5 H Lymph % (Auto) 2.8 L [place] % (Auto) 3.3 Eos % (Auto) 0.1 Baso % (Auto) 0.2 Neut # (Auto) 7.9 H Lymph # (Auto) 0.2 L [place] # (Auto) 0.3 Eos # (Auto) 0.0 Baso # (Auto) 0.0 Total Counted 100 Neutrophils % (Manual) 94 H Lymphocytes % (Manual) 4 L Monocytes % (Manual) 2 Platelet Estimate Normal RBC Morphology Normal ESR Specimen Source O2 % ABG pH ABG pCO2 ABG pO2 ABG HCO3 ABG Total CO2 ABG O2 Saturation ABG Base Excess Gregg Test Sodium 134 L Potassium 4.7 Chloride 95 L Carbon Dioxide 39 H Anion Gap 4.7 L BUN 12 Creatinine 0.81 D Estimated Creat Clear 54 Estimated GFR 72 Est GFR ( Amer) 87 D Glucose 245 H D Lactate Calcium 8.5 Magnesium Troponin I < 0.02 C-Reactive Protein 10/19/19 09:41 WBC RBC Hgb Hct MCV MCH MCHC RDW Plt Count MPV Neut % (Auto) Lymph % (Auto) [place] % (Auto) Eos % (Auto) Baso % (Auto) Neut # (Auto) Lymph # (Auto) [place] # (Auto) Eos # (Auto) Baso # (Auto) Total Counted Neutrophils % (Manual) Lymphocytes % (Manual) Monocytes % (Manual) Platelet Estimate RBC Morphology ESR Specimen Source Right radial O2 % 3l nc ABG pH 7.33 L ABG pCO2 76.7 H ABG pO2 72.7 L ABG HCO3 39.3 H ABG Total CO2 41.7 H ABG O2 Saturation 93 ABG Base Excess 13.4 H Gregg Test Acceptable Sodium Potassium Chloride Carbon Dioxide Anion Gap BUN Creatinine Estimated Creat Clear Estimated GFR Est GFR ( Amer) Glucose Lactate Calcium Magnesium Troponin I C-Reactive Protein Microbiology 10/18/19 20:42 Gram Stain - Final Sputum - Expectorated Sputum Sputum Culture - Preliminary chest x ray: IMPRESSION: Overall no significant change in the cardiomegaly, right perihilar mass/consolidation and chronic changes in the right upper lobe laterally care management consult for hospice for copd. will dc home with trilogy unit- pt wore last pm and tolerated well. steriod taper, antibiotics follow up in office thursday. Objective Vital signs: Temp Pulse Resp BP Pulse Ox 98.5 F 85 20 169/79 H 92 L 10/20/19 12:00 10/20/19 12:59 10/20/19 12:00 10/20/19 12:00 10/20/19 12:00 no acute distress - *Routine HEENT Exam Head: Present: normocephalic Eye: Present: PERRL ENT: Present: mucous membranes moist - *Routine Respiratory Exam Present: wheezes, diminished air movement - *Routine Cardiovascular Exam Present: RRR - *Routine Abdominal Exam Present: soft, normoactive bowel sounds - *Routine Extremities Exam Present: full ROM - *Routine Skin Exam Present: intact - *Routine Neurological Exam Present: alert, oriented X3 - Routine Psychiatric Exam Present: normal affect Results Labs on day of discharge: Preliminary micro results at discharge 10/18/19 20:42 Sputum Culture - Preliminary Sputum - Expectorated Sputum - Additional Comments rounded with dr steve all orders per laura DS: Diagnosis - Discharge Diagnosis (1) Acute and chronic respiratory failure Status: Acute (2) COPD (chronic obstructive pulmonary disease) Status: Acute (3) SIRS (systemic inflammatory response syndrome) Status: Acute (4) COPD with exacerbation Status: Acute Discharge Plan - Patient Discharge Instructions ACTIVITY: Continue current activity DIET: continue same diet Patient Instructions: Chronic Obstructive Pulmonary Disease, DI for Chronic Obstructive Pulmonary Disease - Follow up Plan Follow up with: Bridger Aguilar MD [Primary Care Provider] - Disposition: Home, Self-[facility] Medications: Home Medications Medication Instructions Recorded Confirmed Type Albuterol Sulfate [Albuterol HFA 2 puffs PO Q4HP PRN 06/17/19 10/18/19 History Inhaler] Cholecalciferol (Vitamin D3) 1,000 unit PO DAILY 06/17/19 10/18/19 History [Vitamin D3 1,000 Unit Cap] Atorvastatin Calcium [Lipitor 40mg 40 mg PO HS 07/31/19 10/18/19 History Tablet] omeprazole 20 mg capsule,delayed 20 mg PO DAILY #90 cap 08/17/19 10/18/19 Rx release Fluticasone/Umeclidin/Vilanter 1 puff INHALATION DAILY 08/23/19 10/18/19 History [Trelekathy Ellipta 100-62.5-25] Ergocalciferol (Vitamin D2) 50,000 unit PO WEEKLY 09/12/19 10/18/19 History [Drisdol 50,000 units (1.25mg) capsule] ipratropium 0.5 mg-albuterol 3 mg 3 ml INHALATION QID PRN #90 ml 09/27/19 10/18/19 Rx (2.5 mg base)/3 mL nebulization soln ipratropium 20 mcg-albuterol 100 2 puffs INHALATION Q4H g 09/27/19 10/18/19 History mcg/actuation mist for inhalation pregabalin 75 mg capsule 75 mg PO BID 30 Days #60 cap 09/27/19 10/18/19 Rx ferrous sulfate 325 mg (65 mg 325 mg PO BID #60 tab 10/17/19 10/18/19 Rx iron) tablet Buprenorphine HCl/Naloxone HCl 2 tab SL DAILY 10/19/19 10/19/19 History [Suboxone 8 mg-2 mg Sl Film] Azithromycin [Zithromax 250mg 250 mg PO DAILY 4 Days #4 tab 10/20/19 Rx tab] predniSONE [Deltasone 10mg tablet] 10 mg PO BID 12 Days #20 tab 10/20/19 Rx Prescriptions/Medication Reconciliation: New Azithromycin [Zithromax 250mg tab] 250 mg PO DAILY 4 Days #4 tab predniSONE [Deltasone 10mg tablet] 10 mg PO BID 12 Days #20 tab Continued omeprazole 20 mg capsule,delayed release 20 mg PO DAILY #90 cap ipratropium 20 mcg-albuterol 100 mcg/actuation mist for inhalation 2 puffs INHALATION Q4H g pregabalin 75 mg capsule 75 mg PO BID 30 Days #60 cap ipratropium 0.5 mg-albuterol 3 mg (2.5 mg base)/3 mL nebulization soln 3 ml INHALATION QID PRN #90 ml PRN Reason: shortness of breath ferrous sulfate 325 mg (65 mg iron) tablet 325 mg PO BID #60 tab Cholecalciferol (Vitamin D3) [Vitamin D3 1,000 Unit Cap] 1,000 unit PO DAILY Albuterol Sulfate [Albuterol HFA Inhaler] 2 puffs PO Q4HP PRN PRN Reason: Shortness Of Breath Or Wheezing Atorvastatin Calcium [Lipitor 40mg Tablet] 40 mg PO HS Fluticasone/Umeclidin/Vilanter [Trelegy Ellipta 100-62.5-25] 1 puff INHALATION DAILY Ergocalciferol (Vitamin D2) [Drisdol 50,000 units (1.25mg) capsule] 50,000 unit PO WEEKLY Buprenorphine HCl/Naloxone HCl [Suboxone 8 mg-2 mg Sl Film] 2 tab SL DAILY - Problem Reconciliation Problems Reviewed?: Yes
--- NOTE | 2019-10-20 15:33 | Electrocardiograph Report ---
APPROVED REPORT Exam: Resting ECG HR:105 bpm ECG Measurements Heart Rate 105 AXES [place] 118 P 69 QRSd 76 QRS 70 QT 304 T56 QTc 401 <Conclusion> Sinus tachycardia Right atrial enlargement Borderline ECG Electronically signed by : Keegan Leroy, 10/20/2019 15:32:37
--- NOTE | 2019-10-21 09:15 | Consult Report ---
*Admission Date: 10/18/19 *Reason for consult:: COPD exacerbation *History of present illness: Patient has 3 or 4 admissions per year for COPD exacerbation. She is on home O2 and is taking her inhalers. I have seen her in clinic before. She had an episode of wheezing and shortness of breath. In the past she did have one admission in which she was on a ventilator. When I saw her she was doing better. She was speaking in full sentences. She was not using her accessory muscles. She was hoping to go home as she is improved on the steroids and I believe that it is safe for her to be treated as an outpatient [facility] History I have reviewed the patient's past medical history: Yes Medical History: Reports:: Carotid Stenosis, Chronic Obstructive Pulmonary Disease (COPD), Cerebrovascular Accident, Gastroesophageal Reflux Disease(GERD), Hyperlipidemia Denies:: Cancer, Diabetes Mellitus Type 1, Diabetes Mellitus Type 2, Internal Pacemaker, MRSA, Seizures *Have you ever received a pneumonia vaccine?: No *Have you received a flu vaccine this season?: No Other Medical History: Reports: Anemia, Cataracts Laterality Cases: Bilateral: Tonsillectomy, Other Other Surgeries: Yes: Hysterectomy-Total, Hysterectomy-Partial, Other. No: Pacemaker Amputation: No Fractures: No - *Social History Smoking Status: Former smoker Tobacco Type: cigarettes # Packs/Day (cigarettes): 1 #Yrs smoked (if former smoker): 45 Alcohol Intake: never Alcohol Intake Frequency:: other Substance Use Type: opiates, painkillers *Occupational Status:: retired Housing: house Household Members: spouse, family *Travel in the last 8 weeks: None Family Hx:: No significant family history Review of Systems - Review of Systems Review of systems:: pertinent systems reviewed and negative unless documented below - Constitutional Reports body ache(s), Reports fatigue - *Respiratory Reports chest congestion, Reports cough, Reports shortness of breath - *Neurologic Reports weakness, Denies seizure-like activity, Denies localized weakness, Denies loss of vision Meds Home Medications Medication Instructions Recorded Confirmed Type Albuterol Sulfate [Albuterol HFA 2 puffs PO Q4HP PRN 06/17/19 10/18/19 History Inhaler] Cholecalciferol (Vitamin D3) 1,000 unit PO DAILY 06/17/19 10/18/19 History [Vitamin D3 1,000 Unit Cap] Atorvastatin Calcium [Lipitor 40mg 40 mg PO HS 07/31/19 10/18/19 History Tablet] omeprazole 20 mg capsule,delayed 20 mg PO DAILY #90 cap 08/17/19 10/18/19 Rx release Fluticasone/Umeclidin/Vilanter 1 puff INHALATION DAILY 08/23/19 10/18/19 History [Trelegy Ellipta 100-62.5-25] Ergocalciferol (Vitamin D2) 50,000 unit PO WEEKLY 09/12/19 10/18/19 History [Drisdol 50,000 units (1.25mg) capsule] ipratropium 0.5 mg-albuterol 3 mg 3 ml INHALATION QID PRN #90 ml 09/27/19 10/18/19 Rx (2.5 mg base)/3 mL nebulization soln ipratropium 20 mcg-albuterol 100 2 puffs INHALATION Q4H g 09/27/19 10/18/19 History mcg/actuation mist for inhalation pregabalin 75 mg capsule 75 mg PO BID 30 Days #60 cap 09/27/19 10/18/19 Rx ferrous sulfate 325 mg (65 mg 325 mg PO BID #60 tab 10/17/19 10/18/19 Rx iron) tablet Buprenorphine HCl/Naloxone HCl 2 tab SL DAILY 10/19/19 10/19/19 History [Suboxone 8 mg-2 mg Sl Film] Azithromycin [Zithromax 250mg 250 mg PO DAILY 4 Days #4 tab 10/20/19 Rx tab] predniSONE [Deltasone 10mg tablet] 10 mg PO BID 12 Days #20 tab 10/20/19 Rx Allergies Allergy/AdvReac Type Severity Reaction Status Date / Time No Known Allergies Allergy Verified 10/06/19 12:33 Exam Vital signs and Labs for Last 24 Hours: Temp Pulse Resp BP Pulse Ox 98.5 F 85 20 169/79 H 92 L 10/20/19 12:00 10/20/19 12:59 10/20/19 12:00 10/20/19 12:00 10/20/19 12:00 I & O for Last 24 hours: Intake & Output 10/18/19 10/19/19 10/20/19 10/21/19 23:59 23:59 23:59 23:59 Intake Total 150 / 467 1037 / 1037 2040 Output Total 300 / 300 Balance 150 / 467 737 / 737 2040 Weight 128 lb 5 oz 128 lb 5.015 oz 131 lb 2 oz Microbiology Reports for the Last 24 Hours: Microbiology 10/18/19 20:42 Sputum - Expectorated Sputum Gram Stain - Final 10/18/19 20:42 Sputum - Expectorated Sputum Sputum Culture - Final Normal Respiratory Mariah 10/18/19 20:05 Blood Blood Culture - Preliminary NO GROWTH AFTER 48 HOURS 10/18/19 20:05 Blood Blood Culture - Preliminary NO GROWTH AFTER 48 HOURS - Constitutional mild distress, obese - *Routine HEENT Exam Head: Present: normocephalic Eye: Present: EOMI, PERRL ENT: Present: mucous membranes moist - *Routine Neck Exam Present: supple - Routine Chest/Breast/Axilla Exam Chest wall: Present: tenderness - *Routine Respiratory Exam Present: rhonchi, wheezes. Absent: accessory muscle use, patient mechanically ventilated - *Routine Cardiovascular Exam Present: RRR - *Routine Extremities Exam Absent: cyanosis, clubbing, edema Internal Medicine - CN: Reslt - Labs CBC & Chem 7: 10/19/19 08:10 10/19/19 08:10 - ABG Interpretation ABG results: 10/18/19 10/19/19 20:58 09:41 ABG pH 7.33 L 7.33 L ABG pCO2 77.2 H 76.7 H ABG pO2 72.7 L 72.7 L ABG HCO3 39.8 H 39.3 H ABG Total CO2 42.2 H 41.7 H ABG O2 Saturation 93 93 ABG Base Excess 13.9 H 13.4 H Assessment and Plan (1) Acute and chronic respiratory failure Status: Acute Qualifiers: Respiratory failure complication: hypoxia and hypercapnia Qualified Code(s): J96.21 - Acute and chronic respiratory failure with hypoxia; J96.22 - Acute and chronic respiratory failure with hypercapnia Category: Medical Code(s): J96.20 - Acute and chronic respiratory failure, unspecified whether with hypoxia or hypercapnia Patient has an acute COPD exacerbation which has responded well to steroids and nebulizers. She is able to speak in full sentences and is not using her accessory muscles. Patient can complete her therapy as an outpatient with close follow-up (2) COPD (chronic obstructive pulmonary disease) Status: Acute Qualifiers: COPD type: COPD with acute exacerbation Qualified Code(s): J44.1 - Chronic obstructive pulmonary disease with (acute) exacerbation Category: Medical Code(s): J44.9 - Chronic obstructive pulmonary disease, unspecified Continue home therapy with home oxygen, nebulizers, inhalers (3) SIRS (systemic inflammatory response syndrome) Status: Acute Category: Medical Code(s): R65.10 - Systemic inflammatory response syndrome (SIRS) of non-infectious origin without acute organ dysfunction (4) COPD with exacerbation Status: Acute Category: Medical Code(s): J44.1 - Chronic obstructive pulmonary disease with (acute) exacerbation
== END 2019-10-20 16:40 | disposition home or self-care (01) ==
LOC: 2ND 19:41 → ER 19:41 → 2ND 22:50
PROVIDERS: ADMIT Emergency Medicine; ATTEND Emergency Medicine
DX: I65.29 Occlusion and stenosis of unspecified carotid artery; J44.1 Chronic obstructive pulmonary disease with (acute) exacerbation; J96.21 Acute and chronic respiratory failure with hypoxia; Z79.51 Long term (current) use of inhaled steroids; Z87.891 Personal history of nicotine dependence; K21.9 Gastro-esophageal reflux disease without esophagitis; Z86.73 Personal history of transient ischemic attack (TIA), and cerebral infarction without residual deficits; Z90.710 Acquired absence of both cervix and uterus; Z98.890 Other specified postprocedural states; Z79.899 Other long term (current) drug therapy; E78.5 Hyperlipidemia, unspecified; R65.10 Systemic inflammatory response syndrome (SIRS) of non-infectious origin without acute organ dysfunction; Z99.81 Dependence on supplemental oxygen
CPT/HCPCS: 36415; 71010; 71045; 80048; 82803; 83605; 83735; 84484; 85007; 85025; 85651; 86140; 87040; 87070; 87205; 93005; 94640; 94761; 96365; 96375; 99285; G0378; J0571; J1956